=== PATIENT | male | born 1945 | race Caucasian/White ===

== ENCOUNTER → 2016-11-11 | Outpatient (CLI) | payer OTHER | END | disposition home or self-care (01) | LOC: C.LAB 14:44 | PROVIDERS: ATTEND Urology | DX: N40.1 Benign prostatic hyperplasia with lower urinary tract symptoms (principal) ==

== ENCOUNTER 2019-09-05 10:07 | Inpatient (IN) ==
[2019-09-05] MEDS ORDERED: MAGNESIUM SULFATE / D5W 1 GM/100 ML BAG IV ONE (10:33)
[2019-09-05 10:42] LABS: Basophils # (auto) 0.02 K/uL (0-0.2); Basophils % (auto) 0.4 %; Eosinophils # (auto) 0.14 K/uL (0-0.5); Eosinophils % (auto) 3.1 %; Hematocrit (blood only) 43.4 % (42-52); Hemoglobin 14.3 g/dL (14.0-18.0); Immature Granulocytes # (auto) 0.02 K/uL (0.00-0.02); Immature Granulocytes % (auto) 0.4 %; Lymphocytes # (auto) 1.18 K/uL (1.2-3.4); Mean Corpuscular Hemoglobin 31.5 pg (25-34); Mean Corpuscular Hgb Conc 32.9 g/dL (32-36); Mean Corpuscular Volume 95.6 fL (80-100); Mean Platelet Volume 10.5 fL (7.4-10.4); Monocytes # (auto) 0.44 K/uL (0.11-0.59); Monocytes % (auto) 9.7 %; Neutrophils # (auto) 2.74 K/uL (1.4-6.5); Neutrophils % (auto) 60.4 %; Platelet Count 177 K/uL (130-400); RDW Coefficient of Variation 13.4 % (11.5-14.5); RDW Standard Deviation 46.8 fL (36.4-46.3); Red Blood Count 4.54 M/uL (4.7-6.1); White Blood Count 4.54 K/uL (4.8-10.8)
--- NOTE | 2019-09-05 10:42 | Emergency Department Note ---
History of Present Illness General Chief complaint: Illness Stated complaint: TOP LIP FEELS FUNNY, SLURRED SPEECH Time Seen by Provider: 09/05/19 10:23 Source: patient and family () Mode of arrival: ambulatory Limitations: no limitations History of Present Illness Provider complaint: difficulty swallowing Onset (ago): hour(s) 3 Location: head, face and mouth Radiation: non-radiation Severity: mild Pain Consistency: + now resolved Maximum Pain Intensity: 0 Current Pain Intensity: 0 Associated symptoms: + denies other symptoms; no confusion, no chest pain, no cough, no fever/chills, no headaches, no nausea/vomiting, no shortness of breath and no weakness Treatments prior to arrival: none This is a 74-year-old male who presents the emergency department after having woke up this morning and was unable to swallow his medications. The patient felt like the right side of his mouth was numb. He reports it felt like he was injected with lidocaine. His tried to give him his morning medications and he found that he could not swallow. He also felt that he could not get the words out properly. He denies by being on any blood thinners. He reports he went to bed last evening at 11 PM and everything was normal at that point. The patient then came to the emergency department but by the time he has arrived most of everything has resolved. He reports that his mouth does still feel slightly numb however he is able to swallow at this point and is not having any difficulty with his words. He has a history of sciatica. Home Medications Home Medications Medication Instructions Recorded Confirmed Type acetaminophen 650 mg 650 mg PO Q8H PRN 05/11/18 09/05/19 History tablet,extended release alpha lipoic acid 200 mg capsule 200 mg PO QAM cap 05/11/18 09/05/19 History calcium carbonate 600 mg calcium 600 mg PO QAM tab 05/11/18 09/05/19 History (1,500 mg) tablet cholecalciferol (vitamin D3) 25 1,000 units PO QAM 05/11/18 09/05/19 History mcg (1,000 unit) capsule cranberry extract-vitamin C 250 6 cap PO QAM cap 05/11/18 09/05/19 History mg-60 mg capsule glucosamine sulfate 2KCl 1,000 mg 1,000 mg PO BID 05/11/18 09/05/19 History tablet multivitamin 1 tab PO QAM 05/11/18 09/05/19 History lactobacillus combination no.9 4 4,000 mmu cells PO QAM cap 09/15/18 09/05/19 History billion cell capsule magnesium oxide 400 mg PO QAM tab 12/06/18 09/05/19 History gabapentin 300 mg PO DAILY@1500 09/05/19 09/05/19 History gabapentin 600 mg PO BID 09/05/19 09/05/19 History meloxicam 15 mg PO QAM 09/05/19 09/05/19 History zinc 50 mg PO QAM 09/05/19 09/05/19 History Allergies Allergy/AdvReac Type Severity Reaction Status Date / Time No Known Allergies Allergy Verified 06/30/19 10:48 Past Med/Surg History Medical History Lumbar disc herniation (Chronic) Lumbar radiculopathy (Chronic) Right knee DJD (Chronic) Spinal stenosis of lumbar region with neurogenic claudication (Chronic) Surgical History History of surgical removal of meniscus of knee (Resolved) History of total left hip arthroplasty (Resolved) Family History Mother Lung cancer Father Stroke Social History Preferred Language: [place] Communication Ability: Effective Visual Impairment: Limited Hearing Ability: Normal Executive Associate Required: No Beliefs That Will Affect Care: None marital status: Current Living Situation: Spouse current occupational status: retired Other Information That Helps Us Care for You: No Feels Safe at Home: Yes Safety Concerns: Feels Safe At This Time Smoking Status: Former smoker Do You Dip or Chew Tobacco: No ; Smoking End Date: 1999 ; Second Hand Exposure: No ; Tobacco Cessation Education Requested by Patient: No Hx Alcohol Use: No Hx Substance Use: No Review of Systems A total of 10 systems reviewed and were otherwise negative Physical Exam Vital Signs Vital Signs - 24 hr 09/05/19 10:19 09/05/19 12:08 09/05/19 13:23 Temperature 36.7 C Temperature Source Oral Pulse Rate 82 Pulse Rate [Apical] 61 Respiratory Rate 16 18 Respiratory Effort / Characteristics Blood Pressure 144/107 H Blood Pressure [Left Arm] 171/86 H Blood Pressure Mean 119 Blood Pressure Mean [Left Arm] 114 Blood Pressure Position [Left Arm] Pulse Oximetry 97 96 Oxygen Delivery Method Room Air Room Air Sepsis Recent Fever Within 48 Hours No Sepsis New/Unexplained Change in Mental Status No Sepsis Action Taken by Nursing No Action Required 09/05/19 14:21 09/05/19 16:00 Temperature Temperature Source Pulse Rate Pulse Rate [Apical] 58 L 69 Respiratory Rate 16 18 Respiratory Effort / Characteristics Non-Labored Spontaneous Blood Pressure Blood Pressure [Left Arm] 159/85 H 184/86 H Blood Pressure Mean Blood Pressure Mean [Left Arm] 109 118 Blood Pressure Position [Left Arm] Lying Pulse Oximetry 96 97 Oxygen Delivery Method Room Air Room Air Sepsis Recent Fever Within 48 Hours Sepsis New/Unexplained Change in Mental Status Sepsis Action Taken by Nursing VITAL SIGNS - Vital signs and nursing notes were reviewed. GENERAL - 74-year-old male appearing stated age who is in no acute distress. Communicates well with provider and answers questions appropriately. SKIN - Without rashes. HEAD - NC/AT. EYES - PERRL with EOMI bilaterally. Sclera anicteric. Palpebral conjunctiva pink and moist with no injection noted. EARS - No deformities of external structures noted on gross examination bilaterally. No pain elicited with palpation of the tragus bilaterally. External auditory canals without discharge or otorrhea. Tympanic membranes pearly muller without retraction or bulging. No fluid or purulent material visualized behind the TM. Handle of malleus, umbo, cone of light, pars tensa/flaccid all easily visualized. NOSE - Midline and without cyanosis. No epistaxis or purulent drainage noted. Septum midline without deviation or septal hematoma noted. MOUTH/OROPHARYNX - Without perioral cyanosis. Buccal mucosa pink and moist and without leukoplakia. Tongue midline with equal elevation of palate bilaterally. No tonsillar hypertrophy, erythema, or exudates noted. dentition noted. NECK - Neck with FROM. Supple to palpation. No lymphadenopathy noted. No nuchal rigidity. LUNGS - Chest wall symmetric without accessory muscle use, intercostals retractions, or central cyanosis. Normal vesicular breath sounds CTA B/L. No wheezes, rales, or rhonchi appreciated. CARDIAC - RRR with S1/S2. No murmur, rubs, or gallops appreciated. ABDOMEN - Abdominal contour without pulsations or visible masses. BS normoactive all four quadrants. No tenderness, palpable masses, hepatosplenomegaly, or ascites noted. EXTREMITIES - No clubbing or peripheral cyanosis. No pretibial edema present. +3/5 radial, posterior tibial, and dorsalis pedis pulses palpated throughout. +5/5 strength noted in UE/LE bilaterally. NEUROLOGIC - Cranial nerves II through XII grossly intact. Sensory intact to light touch throughout. Patellar reflexes +2/4. PSYCH - A&Ox3 and cooperates fully with examiner. Pt is very pleasant and interacts well with examiner. Course Administered Medications Acetaminophen (Tylenol) 650 mg PO Q4H PRN PRN Reason: Pain or Fever Stop: 10/05/19 17:47 Last Admin: 09/06/19 07:37 Dose: 650 mg Documented by: [id number] Admin: 09/05/19 20:23 Dose: 650 mg Documented by: [id number] Aspirin (Ecotrin Ectab) 81 mg PO [facility] Stop: 10/06/19 08:59 Last Admin: 09/06/19 07:37 Dose: 81 mg Documented by: [id number] Atorvastatin Calcium (Lipitor) 40 mg PO [facility] Stop: 10/05/19 18:14 Last Admin: 09/06/19 07:38 Dose: 40 mg Documented by: [id number] Admin: 09/05/19 19:16 Dose: Not Given Documented by: [id number] Clopidogrel Bisulfate (Plavix) 75 mg PO [facility] Stop: 10/05/19 18:14 Last Admin: 09/06/19 07:37 Dose: 75 mg Documented by: [id number] Admin: 09/05/19 19:10 Dose: 75 mg Documented by: [id number] Gabapentin (Neurontin) 600 mg PO BID@0800,1999 [facility] Stop: 10/05/19 19:59 Last Admin: 09/06/19 07:37 Dose: 600 mg Documented by: [id number] Admin: 09/05/19 20:10 Dose: 600 mg Documented by: [id number] Hydralazine HCl (Hydralazine Hcl) 5 mg IV Q6H PRN PRN Reason: HTN Stop: 10/05/19 17:47 Last Admin: 09/05/19 18:29 Dose: 5 mg Documented by: [id number] Tramadol HCl (Ultram) 50 mg PO Q6H PRN PRN Reason: Pain Stop: 10/05/19 18:32 Last Admin: 09/06/19 02:40 Dose: 50 mg Documented by: [id number] Admin: 09/05/19 18:42 Dose: 50 mg Documented by: [id number] Discontinued Medications Acetaminophen (Tylenol) 1,000 mg PO NOW STA Stop: 09/05/19 11:13 Last Admin: 09/05/19 11:20 Dose: 1,000 mg Documented by: [id number] Aspirin (Aspirin) 324 mg PO NOW STA Stop: 09/05/19 12:45 Last Admin: 09/05/19 13:03 Dose: 324 mg Documented by: [id number] Hydromorphone HCl (Dilaudid) 0.5 mg IV Q15M PRN PRN Reason: Pain Stop: 09/19/19 11:11 Last Admin: 09/05/19 16:19 Dose: 0.5 mg Documented by: [id number] Admin: 09/05/19 14:22 Dose: 0.5 mg Documented by: [id number] Magnesium Sulfate/Dextrose (Magnesium Sulfate / D5w) 1 gm in 100 mls @ 100 mls/hr IV ONE ONE Stop: 09/05/19 11:32 Last Infusion: 09/05/19 12:05 Dose: 0 mls/hr Documented by: [id number] Admin: 09/05/19 10:54 Dose: 100 mls/hr Documented by: [id number] Ioversol (Optiray 320 125ml) 120 ml IV ONCE PRN PRN Reason: Interaction Checking Stop: 09/09/19 12:17 Last Admin: 09/05/19 12:18 Dose: 120 ml Documented by: [id number] Ondansetron HCl (Zofran) 4 mg IV NOW STA Stop: 09/05/19 11:13 Last Admin: 09/05/19 14:22 Dose: 4 mg Documented by: [id number] Ondansetron HCl (Zofran) Confirm Administered Dose 4 mg .ROUTE .STK-MED ONE Stop: 09/05/19 14:18 Last Admin: 09/05/19 14:22 Dose: Not Given Documented by: [id number] Medical Decision Making Differential Diagnosis Infection, dehydration, metabolic abnormality, hypo/hyperglycemia, electrolyte disturbance, anemia, hypoxia, cardiac sources, intracerebral event, toxicologic, neurologic, as well as other pathologies. Medical Records Attestation: I reviewed the patient's medical records. Home Medications Current Medication List: was personally reviewed by me Laboratory Data Attestation: I reviewed the patient's lab results. Result diagrams: 09/06/19 07:00 09/06/19 07:00 Lab Results 09/05/19 09/05/19 09/05/19 Range/Units 10:30 10:30 10:30 WBC 4.54 L (4.8-10.8) K/uL RBC 4.54 L (4.7-6.1) M/uL Hgb 14.3 (14.0-18.0) g/dL Hct 43.4 (42-52) % MCV 95.6 (80-100) fL MCH 31.5 (25-34) pg MCHC 32.9 (32-36) g/dL RDW Std Deviation 46.8 H (36.4-46.3) fL RDW Coeff of Yesi 13.4 (11.5-14.5) % Plt Count 177 (130-400) K/uL MPV 10.5 H (7.4-10.4) fL Immature Gran % (Auto) 0.4 % Neut % (Auto) 60.4 % Lymph % (Auto) 26.0 % [place] % (Auto) 9.7 % Eos % (Auto) 3.1 % Baso % (Auto) 0.4 % Immature Gran # (Auto) 0.02 (0.00-0.02) K/uL Neut # (Auto) 2.74 (1.4-6.5) K/uL Lymph # (Auto) 1.18 L (1.2-3.4) K/uL [place] # (Auto) 0.44 (0.11-0.59) K/uL Eos # (Auto) 0.14 (0-0.5) K/uL Baso # (Auto) 0.02 (0-0.2) K/uL PT 10.5 (9.0-12.0) Seconds INR 1.0 (0.9-1.1) APTT 26.5 (21.0-31.0) Seconds PTT Ratio 0.9 Sodium 143 (136-145) mmol/L Potassium 3.9 (3.5-5.1) mmol/L Chloride 108 H (98-107) mmol/L Carbon Dioxide 30 (21-32) mmol/L Anion Gap 5.0 (3-11) BUN 18 (7-18) mg/dl Creatinine 0.94 (0.6-1.4) mg/dl Est Cr Clr Drug Dosing 69.0 ml/min Est GFR ( Amer) 90.9 Est GFR (Non-Af Amer) 78.4 BUN/Creatinine Ratio 19.2 (10-20) Glucose 105 H (70-99) mg/dl Estimat Average Glucose mg/dl Hemoglobin A1c (4.5-5.6) % Calcium 9.0 (8.5-10.1) mg/dl Magnesium 2.2 (1.8-2.4) mg/dl Total Bilirubin 0.3 (0.2-1) mg/dl AST 22 (15-37) U/L ALT 26 (12-78) U/L Alkaline Phosphatase 75 (45-117) U/L Troponin I < 0.015 (0-0.045) ng/ml Total Protein 8.3 H (6.4-8.2) gm/dl Albumin 3.9 (3.4-5.0) gm/dl Globulin 4.4 H (2.5-4.0) gm/dl Albumin/Globulin Ratio 0.9 (0.9-2) 09/05/19 Range/Units 10:30 WBC (4.8-10.8) K/uL RBC (4.7-6.1) M/uL Hgb (14.0-18.0) g/dL Hct (42-52) % MCV (80-100) fL MCH (25-34) pg MCHC (32-36) g/dL RDW Std Deviation (36.4-46.3) fL RDW Coeff of Yesi (11.5-14.5) % Plt Count (130-400) K/uL MPV (7.4-10.4) fL Immature Gran % (Auto) % Neut % (Auto) % Lymph % (Auto) % [place] % (Auto) % Eos % (Auto) % Baso % (Auto) % Immature Gran # (Auto) (0.00-0.02) K/uL Neut # (Auto) (1.4-6.5) K/uL Lymph # (Auto) (1.2-3.4) K/uL [place] # (Auto) (0.11-0.59) K/uL Eos # (Auto) (0-0.5) K/uL Baso # (Auto) (0-0.2) K/uL PT (9.0-12.0) Seconds INR (0.9-1.1) APTT (21.0-31.0) Seconds PTT Ratio Sodium (136-145) mmol/L Potassium (3.5-5.1) mmol/L Chloride (98-107) mmol/L Carbon Dioxide (21-32) mmol/L Anion Gap (3-11) BUN (7-18) mg/dl Creatinine (0.6-1.4) mg/dl Est Cr Clr Drug Dosing ml/min Est GFR ( Amer) Est GFR (Non-Af Amer) BUN/Creatinine Ratio (10-20) Glucose (70-99) mg/dl Estimat Average Glucose 123 mg/dl Hemoglobin A1c 5.9 H (4.5-5.6) % Calcium (8.5-10.1) mg/dl Magnesium (1.8-2.4) mg/dl Total Bilirubin (0.2-1) mg/dl AST (15-37) U/L ALT (12-78) U/L Alkaline Phosphatase (45-117) U/L Troponin I (0-0.045) ng/ml Total Protein (6.4-8.2) gm/dl Albumin (3.4-5.0) gm/dl Globulin (2.5-4.0) gm/dl Albumin/Globulin Ratio (0.9-2) Imaging Data Radiologist's Impression: [facility] [place], [place] [phone] CT Scan Report Patient: HAILEE AGUIRRE Admit Date: 09/05/19 MR#: [id number] Address1: [address] [facility] Acct ID:[id number] Address2: Date: 1945 [facility] Zip: [place] [address] Age: 74 Location: ED Sex: M Room/Bed: Att Phy: Diagnosis: TOP LIP FEELS FUNNY, SLURRED SPEECH Giana Phy: Oneil Mahoney PA-C Service Date: 09/05/19 Fam Phy: Interpreting Phy: Jerson Pineda Admit Phy: Ordering Phy: Tayo Flanagan MD cc: ~ CT head/brain wo con CLINICAL HISTORY: 74 years-old Male with Stroke evaluation . Acute strokelike symptoms TECHNIQUE: Multiple axial CT images of the head were obtained without contrast. A dose lowering technique was utilized adhering to the principles of ALARA. COMPARISON: CTA head and neck of same day. FINDINGS: No acute intracranial hemorrhage, midline shift, intracranial mass, hydrocephalus, territorial ischemia or abnormal extra-axial collection. Mild age-related involutional changes. Patchy white matter hypodensities suggest probable chronic microvascular ischemic disease. Subcentimeter hypodense focus within the region of the left anterior commissure on image 14 series 2 is suggestive of a prominent perivascular space. The calvarium is intact. The paranasal sinuses, mastoid air cells, and middle ear cavities are clear. IMPRESSION: No acute intracranial abnormality. ACT 112: Negative or not required by law. The above report was generated using voice recognition software. It may contain grammatical, syntax or spelling errors. Electronically signed by: Raghu Pineda M.D. 09/05/2019 12:24 PM Dictated: 09/05/19 1220 Transcribed: 09/05/19 1220 [place], [place] [phone] CT Scan Report Patient: HAILEE AGUIRRE Admit Date: 09/05/19 MR#: [id number] Address1: [address] [place] [address] Acct ID:[id number] Address2: Date: 1945 [facility] Zip: [place] [address] Age: 74 Location: ED Sex: M Room/Bed: Att Phy: Diagnosis: TOP LIP FEELS FUNNY, SLURRED SPEECH Giana Phy: Oneil Mahoney PA-C Service Date: 09/05/19 [facility] Phy: Interpreting Phy: Srikanth Sheikh MD Admit Phy: Ordering Phy: Tayo Flanagan MD cc: ~ CT angio head w con CLINICAL HISTORY: 74 years-old Male presenting with Stroke evaluation . TECHNIQUE: Multidetector CT angiography of the head was performed after the administration of intravenous contrast. 3-D volumetric and/or maximum intensity projection (MIP) images were subsequently reconstructed for review. IV contrast: 120 mL of Optiray 320. One or more dose lowering techniques were used consistent with the principles of ALARA (as low as reasonably achievable), including automatic exposure control, mA or kV adjustment to individual patient size, and/or use of iterative reconstruction. COMPARISON: None. CT DOSE (mGy.cm): The estimated cumulative dose is 1245.97 mGy.cm. FINDINGS: Decorative Cutting Machine Tender topogram: Unremarkable. Anterior circulation: Intracranial portions of the internal carotid arteries patent to the level of the termini. Anterior cerebral arteries patent. Middle cerebral arteries patent. Anterior communicating artery patent. Posterior circulation: Codominant vertebral arteries. Intradural portions of the vertebral arteries patent. Posterior inferior cerebellar arteries patent. Basilar artery patent. Anterior inferior cerebellar arteries poorly visualized. Superior cerebellar arteries patent. Posterior cerebral arteries patent. Posterior communicating arteries patent hypoplastic or aplastic. Dural venous sinuses: Patent. Other: Allowing for the phase of contrast, brain parenchyma within normal limits. Calvarium intact. IMPRESSION: 1. No evidence of aneurysm, focal vessel occlusion, or significant stenosis of the intracranial arteries. ACT 112: Negative or not required by law. Electronically signed by: Srikanth Sheikh M.D. 09/05/2019 12:27 PM Dictated: 09/05/19 1223 Transcribed: 09/05/19 1223 [place], [place] [phone] Magnetic Resonance Report Patient: HAILEE AGUIRRE Admit Date: 09/05/19 MR#: [id number] Address1: [address] [place] [address] Acct ID:[id number] Address2: Date: 1945 [facility] Zip: [place] [address] Age: 74 Location: ED Sex: M Room/Bed: Att Phy: Diagnosis: TOP LIP FEELS FUNNY, SLURRED SPEECH Giana Phy: Oneil Mahoney PA-C Service Date: 09/05/19 Fam Phy: Interpreting Phy: Juan Carlos Barnard MD Admit Phy: Ordering Phy: Tayo Flanagan MD cc: ~ MRI OF THE BRAIN WITHOUT IV CONTRAST CLINICAL HISTORY: Right-sided facial droop. Inability to swallow. COMPARISON STUDY: CT of the brain dated 09/05/2019. TECHNIQUE: MRI of the brain was performed utilizing various T1 and T2-weighted sequences in the axial, sagittal, and coronal planes. IV contrast was not administered for this examination. FINDINGS: Brain parenchyma: There are 2 subcentimeter foci of restricted diffusion identified in the posterior right frontal lobe and the right parietal lobe. This is consistent with acute to subacute ischemia. No additional foci of restricted diffusion are identified. There is age-related involutional change noting moderate subcortical and periventricular microangiopathic disease. There is no hemorrhage or mass effect. Muller-white matter differentiation is preserved. No extra-axial fluid collection is seen. The cerebellar tonsils are normal in con figuration. Ventricles, sulci, and cisterns: Prominent secondary to involutional change. Pituitary and sella: Partially empty sella is incidentally noted. Intracranial vasculature: Normal flow voids are maintained at the skull base. Orbits: The bony orbits are grossly intact. Orbital contents are normal in appearance. Sinuses and mastoids: There is a left mastoid effusion. The right mastoid air cells are clear. There is mild mucosal thickening in the right frontal sinus. The remaining paranasal sinuses are clear. Calvarium: Unremarkable. Cervical cord: Partially visualized cervical spinal cord is normal in morphology and signal intensity. IMPRESSION: 1. There are 2 subcentimeter foci of restricted diffusion identified in the right hemisphere as above. These are consistent with acute to subacute infarcts. 2. No additional foci of acute ischemia are identified. 3. There is no hemorrhage or mass effect. ACT 112: Negative or not required by law. Electronically signed by: Juan Carlos Barnard M.D. 09/05/2019 3:18 PM Dictated: 09/05/19 1513 Transcribed: 09/05/19 1513 ECG Data Attestation: I personally reviewed and interpreted this ECG as follows: Indication: + altered mental status Rate (beats per minute): 74 Rhythm: + normal sinus ECG Intervals/blocks: + Normal QT-c (424) ECG [place]: + Normal ECG ST segments: no ST depression and no ST elevation Comparison ECG Date: from (09/05/2019) Change: no significant change Blood Pressure Blood Pressure Findings: Elevated blood pressure Blood Pressure Disposition: elevated BP felt to be situational MDM Narrative Patient was seen and evaluated as above in room B5. Review was performed of nursing notes and vital signs. I did review pertinent previous visits and patient history. After obtaining a thorough history and physical examination the above work up was performed. This is a 74-year-old male who presents emergency department with right-sided facial numbness the symptoms have resolved by the time the patient arrived to the emergency department. Therefore using shared medical decision making the patient was sent for CTA of the head and neck. This is concerning for an embolus in the right carotid. Patient was then sent for an MRI of the brain which confirmed 2 strokes. I did discuss this case with the hospitalist service who did agree to admit the patient. I did consider TPA for this patient however his symptoms had resolved by the time he reached the emergency department therefore he is not a candidate. He was given magnesium as well as aspirin while in the emergency department. Patient also has sciatic pain so he was given Dilaudid for this. An order was placed for continuous cardiac monitoring. The monitor shows a rate of 82 with Normal Sinus rhythm. The patient was evaluated during the global COVID-19 pandemic, and that diagnosis was suspected/considered upon their initial presentation. Their evaluation, treatment and testing was consistent with current guidelines for patients who present with complaints or symptoms that may be related to COVID- 19. Impression & Plan Facial numbness, Stroke Discharge Plan Visit Data *Final* Discharge Date/Time: 09/05/19 17:13 Chief Complaint: Illness Stated Complaint: TOP LIP FEELS FUNNY, SLURRED SPEECH ED Provider: Tayo Flanagan Discharge Problem: Facial numbness, Stroke Patient Disposition: Admitted As Inpatient Discharge Instructions Interventions: ED Discharge Assessment Last Done: 09/05/19 17:13
[2019-09-05 10:57] LABS: Partial Thromboplastin Ratio 0.9; Partial Thromboplastin Time 26.5 Seconds (21.0-31.0); Prothrombin Time 10.5 Seconds (9.0-12.0)
[2019-09-05 10:59] LABS: Alanine Aminotransferase 26 U/L (12-78); Albumin Level 3.9 gm/dl (3.4-5.0); Aspartate Aminotransferase 22 U/L (15-37); BUN Creatinine Ratio 19.2 (10-20); Blood Urea Nitrogen 18 mg/dl (7-18); Carbon Dioxide 30 mmol/L (21-32); Chloride 108 mmol/L (98-107); Est GFR (African American) 90.9; Est GFR (Non-African American) 78.4; Glucose 105 mg/dl (70-99); Magnesium 2.2 mg/dl (1.8-2.4); Potassium 3.9 mmol/L (3.5-5.1); Sodium 143 mmol/L (136-145)
[2019-09-05 11:04] LABS: Albumin Globulin Ratio 0.9 (0.9-2); Alkaline Phosphatase 75 U/L (45-117); Bilirubin,Total 0.3 mg/dl (0.2-1); Globulin 4.4 gm/dl (2.5-4.0); Total Protein 8.3 gm/dl (6.4-8.2); Troponin I < 0.015 ng/ml (0-0.045)
[2019-09-05] MEDS ORDERED: ACETAMINOPHEN 500 MG TAB PO STA (11:12)
[2019-09-05] MEDS ORDERED: OPTIRAY 320 125ml IV PRN (12:18)
--- NOTE | 2019-09-05 12:25 | CT Scan Report ---
CT head/brain wo con CLINICAL HISTORY: 74 years-old Male with Stroke evaluation . Acute strokelike symptoms TECHNIQUE: Multiple axial CT images of the head were obtained without contrast. A dose lowering tech nique was utilized adhering to the principles of ALARA. COMPARISON: CTA head and neck of same day. FINDINGS: No acute intracranial hemorrhage, midline shift, intracranial mass, hydrocephalus, territorial ischem ia or abnormal extra-axial collection. Mild age-related involutional changes. Patchy white matter hyp odensities suggest probable chronic microvascular ischemic disease. Subcentimeter hypodense focus wit hin the region of the left anterior commissure on image 14 series 2 is suggestive of a prominent sadiq vascular space. The calvarium is intact. The paranasal sinuses, mastoid air cells, and middle ear cavities are clear . IMPRESSION: No acute intracranial abnormality. ACT 112: Negative or not required by law. The above report was generated using voice recognition software. It may contain grammatical, syntax o r spelling errors. Electronically signed by: Raghu Pineda M.D. 09/05/2019 12:24 PM
--- NOTE | 2019-09-05 12:28 | CT Scan Report ---
CT angio head w con CLINICAL HISTORY: 74 years-old Male presenting with Stroke evaluation . TECHNIQUE: Multidetector CT angiography of the head was performed after the administration of intrave nous contrast. 3-D volumetric and/or maximum intensity projection (MIP) images were subsequently mckenzie nstructed for review. IV contrast: 120 mL of Optiray 320. One or more dose lowering techniques were u sed consistent with the principles of ALARA (as low as reasonably achievable), including automatic ex posure control, mA or kV adjustment to individual patient size, and/or use of iterative reconstructio n. COMPARISON: None. CT DOSE (mGy.cm): The estimated cumulative dose is 1245.97 mGy.cm. 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 Anterior circulation: Intracranial portions of the internal carotid arteries patent to the level of t he termini. Anterior cerebral arteries patent. Middle cerebral arteries patent. Anterior communicatin g artery patent. Posterior circulation: Codominant vertebral arteries. Intradural portions of the vertebral arteries p atent. Posterior inferior cerebellar arteries patent. Basilar artery patent. Anterior inferior cerebe llar arteries poorly visualized. Superior cerebellar arteries patent. Posterior cerebral arteries pat ent. Posterior communicating arteries patent hypoplastic or aplastic. Dural venous sinuses: Patent. Other: Allowing for the phase of contrast, brain parenchyma within normal limits. Calvarium intact. IMPRESSION: 1. No evidence of aneurysm, focal vessel occlusion, or significant stenosis of the intracranial jose martin geovany. ACT 112: Negative or not required by law. Electronically signed by: Srikanth Sheikh M.D. 09/05/2019 12:27 PM
--- NOTE | 2019-09-05 12:39 | CT Scan Report ---
CT angio neck with con CLINICAL HISTORY: 74 years-old Male presenting with Stroke evaluation. TECHNIQUE: Multidetector CT angiography of the neck was performed after the administration of intrave nous contrast. 3-D volumetric and/or maximum intensity projection (MIP) images were subsequently mckenzie nstructed for review. IV contrast: 120 mL of Optiray 320. One or more dose lowering techniques were u sed consistent with the principles of ALARA (as low as reasonably achievable), including automatic ex posure control, mA or kV adjustment to individual patient size, and/or use of iterative reconstructio n. Stenosis measurements were based on NASCET-like criteria (distal lumen diameter as the denominator for stenosis measurement). COMPARISON: None. CT DOSE (mGy.cm): The estimated cumulative dose is 1245.97. 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 Aortic arch: Normal three-vessel aortic arch with patent origins of the branch vessels. Innominate artery: Patent. Right subclavian artery: Patent. Right common carotid artery: Patent. Right internal and external carotid arteries: Predominantly noncalcified atherosclerotic plaque at th e carotid bifurcation extending into the proximal right internal carotid artery. There is focal intra luminal thrombus in the proximal portion. This results in up to 50% stenosis of the lumen of the prox imal ICA. Mid to distal portions widely patent. External carotid artery patent. Left common carotid artery: Patent. Left internal and external carotid arteries: Calcified and noncalcified atherosclerotic plaque at the carotid bifurcation. Up to 50% stenosis of the origin and proximal course of the internal carotid ar matheus. The mid to distal course is widely patent. External carotid artery patent. Left subclavian artery: Mild noncalcified atherosclerotic plaque without significant stenosis. Vertebral arteries: Codominant vertebral arteries. Origins and courses of the bilateral vertebral art eries patent. Other: Limited intracranial evaluation within normal limits. Soft tissues of the neck normal allowing for the phase of contrast. Degenerative changes of the cervical spine. Severe centrilobular emphysem a. IMPRESSION: 1. Thrombus/ulcerated noncalcified atherosclerotic plaque along the origin and proximal course of th e right ICA, resulting in up to 50% stenosis. The appearance raises concern for an etiology for possi ble distal emboli. The appearance is not characteristic for dissection, although acute vessel injury is difficult to exclude if there is a history of trauma. 2. Up to 50% stenosis of the proximal left ICA. 3. No focal vessel occlusion. 4. Severe emphysema ACT 112: Negative or not required by law. Electronically signed by: Srikanth Sheikh M.D. 09/05/2019 12:38 PM
[2019-09-05] MEDS ORDERED: ASPIRIN CHEW 324 MG PO STA (12:44)
[2019-09-05] MEDS: ONDANSETRON INJ 2 MG/ML 2 ML VIAL IV STA ×2 (13:00→14:22)
--- NOTE | 2019-09-05 13:42 | XRay Report ---
XR orbits for MRI HISTORY: 74 years-old Male Screening for foreign body for MRI screening study for MRI. COMPARISON: Head CT of same day TECHNIQUE: 3 views of the orbits FINDINGS: No opaque foreign body of the orbits. No acute facial bone fracture or dislocation. IMPRESSION: No opaque foreign body. ACT 112: Negative or not required by law. The above report was generated using voice recognition software. It may contain grammatical, syntax o r spelling errors. Electronically signed by: Raghu Pineda M.D. 09/05/2019 1:41 PM
[2019-09-05] MEDS ORDERED: ONDANSETRON INJ 2 MG/ML 2 ML VIAL ONE (14:17)
[2019-09-05] MEDS: HYDROmorphone INJ 0.5 MG/0.5 ML SYR IV PRN ×2 (14:22→16:19)
--- NOTE | 2019-09-05 15:20 | Magnetic Resonance Report ---
MRI OF THE BRAIN WITHOUT IV CONTRAST CLINICAL HISTORY: Right-sided facial droop. Inability to swallow. COMPARISON STUDY: CT of the brain dated 09/05/2019. TECHNIQUE: MRI of the brain was performed utilizing various T1 and T2-weighted sequences in the axial , sagittal, and coronal planes. IV contrast was not administered for this examination. FINDINGS: Brain parenchyma: There are 2 subcentimeter foci of restricted diffusion identified in the posterior right frontal lobe and the right parietal lobe. This is consistent with acute to subacute ischemia. N o additional foci of restricted diffusion are identified. There is age-related involutional change no ting moderate subcortical and periventricular microangiopathic disease. There is no hemorrhage or mas s effect. Muller-white matter differentiation is preserved. No extra-axial fluid collection is seen. Th e cerebellar tonsils are normal in configuration. Ventricles, sulci, and cisterns: Prominent secondary to involutional change. Pituitary and sella: Partially empty sella is incidentally noted. Intracranial vasculature: Normal flow voids are maintained at the skull base. Orbits: The bony orbits are grossly intact. Orbital contents are normal in appearance. Sinuses and mastoids: There is a left mastoid effusion. The right mastoid air cells are clear. There is mild mucosal thickening in the right frontal sinus. The remaining paranasal sinuses are clear. Calvarium: Unremarkable. Cervical cord: Partially visualized cervical spinal cord is normal in morphology and signal intensity . IMPRESSION: 1. There are 2 subcentimeter foci of restricted diffusion identified in the right hemisphere as above . These are consistent with acute to subacute infarcts. 2. No additional foci of acute ischemia are identified. 3. There is no hemorrhage or mass effect. ACT 112: Negative or not required by law. Electronically signed by: Juan Carlos Barnard M.D. 09/05/2019 3:18 PM
[2019-09-05] MEDS ORDERED: HydrALAZINE HCL 20 MG/ML VIAL IV PRN (17:48)
[2019-09-05] MEDS ORDERED: PHARMACIST DISCHARGE MED REC CONSULT PRN (17:48)
[2019-09-05] MEDS: TRAMADOL HCL 50 MG TABLET PO PRN (18:42)
--- NOTE | 2019-09-05 18:56 | History & Physical Report ---
Date of Service September 05, 2019 Assessment & Plan (1) Acute CVA (cerebrovascular accident): -admit to tele -patient presenting from home with reports of upper lip numbness and speech difficulty -in the ED, brain MRI shows acute/subacute posterior right frontal lobe and the right parietal lobe infarcts. Neck CTA shows thrombus/ulcerated noncalcified atherosclerotic plaque along the origin and proximal course of the right ICA, resulting in up to 50% stenosis. The appearance raises concern for an etiology for possible distal emboli. Up to 50% stenosis of the proximal left ICA. -s/p full dose ASA in the ED, continue with ASA 8u1mg daily and add Plavix and statin -neuro and vascular consults - ED has notified both. NPO after midnight for possible vascular intervention tomorrow. -permissive HTN -neuro checks -echo -lipid panel and hgb a1c with AM labs -PT/OT, speech consults (2) Chronic back pain: -continue home dose of gabapentin -PRN Tramadol (3) DVT prophylaxis: -SCDs Admission and Anticipated Discharge Date Admission Date: September 05, 2019 History of Present Illness Chief Complaint: Lip Numbness, Speech Difficulty Primary Care Provider: Oneil Mahoney PA-C 74 year old male who presents to the ED with reports of upper lip numbness and speech difficulty. Patient reports that when he woke up this morning his upper lip felt like he had had Novocaine. Then when he took a drink of water with his morning pills, the water spilled out of his mouth. His noted his speech was thick and somewhat slurred. Patient notes that over the past one week he had noted his typing skills worsened and some other fine motor movements. Patient denies any associated unilateral numbness, tingling, or weakness. No headache or blurred vision. Denies lightheadedness, dizziness, diaphoresis, and syncopal events. No chest pain or shortness of breath. Denies abdominal pain, nausea, vomiting, and diarrhea. No other recent illnesses, fevers, or chills. Denies urinary symptoms. In the ED, brain MRI shows two small acute-subacute in the posterior right frontal lobe and the right parietal lobe. CTA neck shows Thrombus/ulcerated noncalcified atherosclerotic plaque along the origin and proximal course of the right ICA, resulting in up to 50% stenosis. Labs are unremarkable. BP somewhat hypertensive but vitals otherwise stable. Patient was given Tylenol, full dose ASA, IV dilaudid, IV Mg+, and IV zofran. Allergies Allergy/AdvReac Type Severity Reaction Status Date / Time No Known Allergies Allergy Verified 06/30/19 10:48 Home Medications Home Medications Medication Instructions Recorded Confirmed Type acetaminophen 650 mg 650 mg PO Q8H PRN 05/11/18 09/05/19 History tablet,extended release alpha lipoic acid 200 mg capsule 200 mg PO QAM cap 05/11/18 09/05/19 History calcium carbonate 600 mg calcium 600 mg PO QAM tab 05/11/18 09/05/19 History (1,500 mg) tablet cholecalciferol (vitamin D3) 25 1,000 units PO QAM 05/11/18 09/05/19 History mcg (1,000 unit) capsule cranberry extract-vitamin C 250 6 cap PO QAM cap 05/11/18 09/05/19 History mg-60 mg capsule glucosamine sulfate 2KCl 1,000 mg 1,000 mg PO BID 05/11/18 09/05/19 History tablet multivitamin 1 tab PO QAM 05/11/18 09/05/19 History lactobacillus combination no.9 4 4,000 mmu cells PO QAM cap 09/15/18 09/05/19 History billion cell capsule magnesium oxide 400 mg PO QAM tab 12/06/18 09/05/19 History gabapentin 300 mg PO DAILY@1500 09/05/19 09/05/19 History gabapentin 600 mg PO BID 09/05/19 09/05/19 History meloxicam 15 mg PO QAM 09/05/19 09/05/19 History zinc 50 mg PO QAM 09/05/19 09/05/19 History Past Med/Surg History Medical History (Updated 09/06/19 @ 10:18 by Re Plunkett PA-C) Carotid stenosis, bilateral Lumbar disc herniation (Chronic) Lumbar radiculopathy (Chronic) Right knee DJD (Chronic) Spinal stenosis of lumbar region with neurogenic claudication (Chronic) Surgical History History of surgical removal of meniscus of knee (Resolved) History of total left hip arthroplasty (Resolved) Family History Mother Lung cancer Father Stroke Social History Preferred Language: [place] Communication Ability: Effective Visual Impairment: Limited Hearing Ability: Normal Paleologist Required: No Beliefs That Will Affect Care: None marital status: Current Living Situation: Spouse current occupational status: retired Other Information That Helps Us Care for You: No Feels Safe at Home: Yes Safety Concerns: Feels Safe At This Time Smoking Status: Former smoker Do You Dip or Chew Tobacco: No ; Smoking End Date: 1999 ; Second Hand Exposure: No ; Tobacco Cessation Education Requested by Patient: No Hx Alcohol Use: No Hx Substance Use: No Review of Systems Review of Systems: ROS per HPI, all other systems reviewed and negative Physical Exam Constitutional: WD/WN, vitals as above Eyes: PERRL, conjunctivae normal, anicteric sclerae ENMT: external ear and nose normal, oropharynx normal Respiratory: normal respiratory effort, lungs clear to auscultation Cardiovascular: Rate/Rhythm: regular rate and regular rhythm Vessels: normal peripheral pulses Extremities: no edema Gastrointestinal (Abdomen): normal bowel sounds, soft, nontender, no hepatosplenomegaly Musculoskeletal: no cyanosis or clubbing, extremities motor strength 5/5 Skin: no rashes, warm and dry Neurologic: Speech / Cognition: + abnormal speech (thick speech, mild slurring) Cranial Nerves: PERRL, normal accommodation, EOM intact bilaterally and tongue midline; + abnormal facial strength (mild left facial droop noted) Coordination: normal [id number] test and normal [id number] test Psychiatric: A+Ox3, euthymic affect Results & Data Results & Data ([facility]) Vital Signs (Past 12 Hours) Vital Signs Temp Pulse Pulse Resp BP BP Pulse Ox 09/05/19 18:43 36.7 C 84 22 148/81 H 94 09/05/19 17:51 36.5 C 66 16 193/86 H 96 09/05/19 17:48 36.5 C 63 97 H 18 193/86 H 97 09/05/19 16:00 69 18 184/86 H 97 09/05/19 14:21 58 L 16 159/85 H 96 09/05/19 13:23 171/86 H 09/05/19 12:08 61 18 96 09/05/19 10:19 36.7 C 82 16 144/107 H 97 Pulse Ox 09/05/19 18:43 09/05/19 17:51 09/05/19 17:48 97 09/05/19 16:00 09/05/19 14:21 09/05/19 13:23 09/05/19 12:08 09/05/19 10:19 Laboratory Results Short CBC 09/05/19 Range/Units 10:30 WBC 4.54 L (4.8-10.8) K/uL Hgb 14.3 (14.0-18.0) g/dL Hct 43.4 (42-52) % Plt Count 177 (130-400) K/uL BMP 09/05/19 10:30 Sodium 143 Potassium 3.9 Chloride 108 H Carbon Dioxide 30 BUN 18 Creatinine 0.94 Glucose 105 H Calcium 9.0 Cardiac Enzymes 09/05/19 Range/Units 10:30 Troponin I < 0.015 (0-0.045) ng/ml Liver Function 09/05/19 Range/Units 10:30 Total Bilirubin 0.3 (0.2-1) mg/dl AST 22 (15-37) U/L ALT 26 (12-78) U/L Alkaline Phosphatase 75 (45-117) U/L Albumin 3.9 (3.4-5.0) gm/dl Diagnostic Findings HEAD CT IMPRESSION: No acute intracranial abnormality. HEAD CTA IMPRESSION: 1. No evidence of aneurysm, focal vessel occlusion, or significant stenosis of the intracranial arteries. NECK CTA IMPRESSION: 1. Thrombus/ulcerated noncalcified atherosclerotic plaque along the origin and proximal course of the right ICA, resulting in up to 50% stenosis. The appearance raises concern for an etiology for possible distal emboli. The appearance is not characteristic for dissection, although acute vessel injury is difficult to exclude if there is a history of trauma. 2. Up to 50% stenosis of the proximal left ICA. 3. No focal vessel occlusion. 4. Severe emphysema BRAIN MRI IMPRESSION: 1. There are 2 subcentimeter foci of restricted diffusion identified in the right hemisphere as above. These are consistent with acute to subacute infarcts. 2. No additional foci of acute ischemia are identified. 3. There is no hemorrhage or mass effect. Code Status & VTE Plan Code Status Patient is a full code as per my discussion with him. VTE Prophylaxis Plan VTE Prophylaxis will be ordered: Yes
[2019-09-05] MEDS: ATORVASTATIN 40 MG TAB PO SCH ×2 (19:09→19:16)
[2019-09-05] MEDS: CLOPIDOGREL BISULFATE 75 MG TAB PO SCH (19:10)
--- NOTE | 2019-09-05 19:15 | Communication Note ---
Date of Service: September 05, 2019 Attending Addendum: care coordinated with RASHEEDA Ramos please refer to her notes for full details, I agree with her notes patient seen and examined, records reviewed by myself as well on exam, patient seen resting in bed, sitting up states numbness on his cheek and mouth is resolving no problems with swallowing no other symptoms VS noted and reviewed oriented x 3, not in distress, speaks in sentences with no effort nor accessory muscle use normal rate, regular rhythm, no murmurs clear breath sounds bilaterally non distended, soft, nontender no bipedal edema, erythema, warmth (+) mild left facial droop- mild, no other gross focal deficits WBC 4.5 Hg 14.3 Crea 0.94 Brain MRI:1. There are 2 subcentimeter foci of restricted diffusion identified in the right hemisphere as above. These are consistent with acute to subacute infarcts. 2. No additional foci of acute ischemia are identified. 3. There is no hemorrhage or mass effect. CT neck: 1. Thrombus/ulcerated noncalcified atherosclerotic plaque along the origin and proximal course of the right ICA, resulting in up to 50% stenosis. The appearance raises concern for an etiology for possible distal emboli. The appearance is not characteristic for dissection, although acute vessel injury is difficult to exclude if there is a history of trauma. 2. Up to 50% stenosis of the proximal left ICA. 3. No focal vessel occlusion. 4. Severe emphysema ASSESSMENT AND PLAN ACUTE CVA stroke protocol echo ASA and Plavix Lipitor BILATERAL CAROTID ARTERY STENOSIS Vascular Surgery consult HTN PRN hdyralazine for systolic bp > 170 other diagnoses and plan of care as per RASHEEDA Ramos's notes Del Polanco MD
[2019-09-05] MEDS: GABAPENTIN 300 MG CAP PO SCH (20:10)
[2019-09-05] MEDS: ACETAMINOPHEN 325 MG TAB PO PRN (20:23)
--- NOTE | 2019-09-05 23:46 | Electrocardiogram Report ---
Test Reason : Blood Pressure : / mmHG Vent. Rate : 074 BPM Atrial Rate : 074 BPM P-R Int : 164 ms QRS Dur : 086 ms QT Int : 382 ms P-R-T Axes : 045 021 042 degrees QTc Int : 424 ms Normal sinus rhythm Normal ECG No previous ECGs available Confirmed by Al Garcia ([id number]) on 09/05/2019 11:45:36 PM Referred By: REFERRED SELF Confirmed By:Al Garcia
[2019-09-06] MEDS: TRAMADOL HCL 50 MG TABLET PO PRN ×2 (02:40→09:41)
[2019-09-06 06:25] LABS: Estimated Average Glucose 123 mg/dl; Hemoglobin A1C 5.9 % (4.5-5.6)
[2019-09-06 07:14] LABS: Basophils # (auto) 0.02 K/uL (0-0.2); Basophils % (auto) 0.4 %; Eosinophils % (auto) 3.7 %; Hematocrit (blood only) 41.1 % (42-52); Hemoglobin 13.3 g/dL (14.0-18.0); Immature Granulocytes # (auto) 0.01 K/uL (0.00-0.02); Immature Granulocytes % (auto) 0.2 %; Lymphocytes # (auto) 1.71 K/uL (1.2-3.4); Lymphocytes % (auto) 31.3 %; Mean Corpuscular Hemoglobin 31.1 pg (25-34); Mean Corpuscular Hgb Conc 32.4 g/dL (32-36); Mean Platelet Volume 10.5 fL (7.4-10.4); Monocytes # (auto) 0.51 K/uL (0.11-0.59); Monocytes % (auto) 9.3 %; Neutrophils # (auto) 3.01 K/uL (1.4-6.5); Neutrophils % (auto) 55.1 %; Platelet Count 173 K/uL (130-400); RDW Coefficient of Variation 13.7 % (11.5-14.5); RDW Standard Deviation 47.5 fL (36.4-46.3); Red Blood Count 4.28 M/uL (4.7-6.1); White Blood Count 5.46 K/uL (4.8-10.8)
[2019-09-06] MEDS: ACETAMINOPHEN 325 MG TAB PO PRN (07:37)
[2019-09-06] MEDS: CLOPIDOGREL BISULFATE 75 MG TAB PO SCH (07:37)
[2019-09-06] MEDS: GABAPENTIN 300 MG CAP PO SCH (07:37)
[2019-09-06] MEDS: ATORVASTATIN 40 MG TAB PO SCH (07:38)
[2019-09-06 07:51] LABS: BUN Creatinine Ratio 21.1 (10-20); Calcium 8.9 mg/dl (8.5-10.1); Creatinine Clr Calc Pharmacy 71.3 ml/min; Est GFR (African American) 94.5; Est GFR (Non-African American) 81.6
[2019-09-06] MEDS ORDERED: ASPIRIN 81 MG ECTAB PO SCH (09:00)
--- NOTE | 2019-09-06 10:20 | Consultation ---
Date of Consultation September 06, 2019 Assessment & Plan (1) Carotid stenosis, bilateral: Pt admitted with acute R CVA and found to have approx 50% stenosis of BL carotid arteries. Pt also seen by Dr Jordan and images reviewed. No indications for CEA at this time. Continue ASA/plavix. Will see in office in 1 yr with carotid US for surveillance. Please call if needed. Patient was seen, examined, and chart reviewed. Agree with exam and treatment plan of the Vascular PA. Present on Admission?: Yes History of Present Illness Reason for Consultation: R ICA stenosis, CVA Attending Physician: Del Polanco MD History of Present Illness 74 yo m with hx of sciatica, neuropathy, spinal stenosis, osteoarthritis, admitted with acute R CVA and seen in consultation today for R ICA stenosis noted on CTA. Pt states he was in normal state of health until waking yesterday, he felt his lips were numb "like novocaine." Water fell out of his mouth when he was trying to take his medications. Has been feeling like both hands/fingers are more numb at fingertips than usual, especially when typing. 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 His lip sx are improved, but not completely gone. Admits chronic low back pain and LLE pain from scitica. Denies SCALES, fever, chills, recent illness, chest pain, palpitations, abd pain, N/V, rest pain, other complaints. Allergies Allergy/AdvReac Type Severity Reaction Status Date / Time No Known Allergies Allergy Verified 06/30/19 10:48 Home Medications Home Medications Medication Instructions Recorded Confirmed Type acetaminophen 650 mg 650 mg PO Q8H PRN 05/11/18 09/05/19 History tablet,extended release alpha lipoic acid 200 mg capsule 200 mg PO QAM cap 05/11/18 09/05/19 History calcium carbonate 600 mg calcium 600 mg PO QAM tab 05/11/18 09/05/19 History (1,500 mg) tablet cholecalciferol (vitamin D3) 25 1,000 units PO QAM 05/11/18 09/05/19 History mcg (1,000 unit) capsule cranberry extract-vitamin C 250 6 cap PO QAM cap 05/11/18 09/05/19 History mg-60 mg capsule glucosamine sulfate 2KCl 1,000 mg 1,000 mg PO BID 05/11/18 09/05/19 History tablet multivitamin 1 tab PO QAM 05/11/18 09/05/19 History lactobacillus combination no.9 4 4,000 mmu cells PO QAM cap 09/15/18 09/05/19 History billion cell capsule magnesium oxide 400 mg PO QAM tab 12/06/18 09/05/19 History gabapentin 300 mg PO DAILY@1500 09/05/19 09/05/19 History gabapentin 600 mg PO BID 09/05/19 09/05/19 History zinc 50 mg PO QAM 09/05/19 09/05/19 History aspirin 81 mg PO QAM #21 tab 09/06/19 Rx atorvastatin [Lipitor] 80 mg PO DAILY #30 tab 09/06/19 Rx clopidogrel 75 mg PO QAM #30 tab 09/06/19 Rx tramadol 50 mg PO Q6H PRN #20 tab 09/06/19 Rx Patient History Medical History (Updated 09/06/19 @ 17:20 by Del Polanco MD) Carotid stenosis, bilateral Lumbar disc herniation (Chronic) Lumbar radiculopathy (Chronic) Right knee DJD (Chronic) Spinal stenosis of lumbar region with neurogenic claudication (Chronic) Surgical History History of surgical removal of meniscus of knee (Resolved) History of total left hip arthroplasty (Resolved) Family History Mother Lung cancer Father Stroke Social History Preferred Language: [place]er Communication Ability: Effective Visual Impairment: Limited Hearing Ability: Normal Senior Engineering Team Leader Required: No Beliefs That Will Affect Care: None marital status: Current Living Situation: Spouse current occupational status: retired Other Information That Helps Us Care for You: No Feels Safe at Home: Yes Safety Concerns: Feels Safe At This Time Smoking Status: Former smoker Do You Dip or Chew Tobacco: No ; Smoking End Date: 1999 ; Second Hand Exposure: No ; Tobacco Cessation Education Requested by Patient: No Hx Alcohol Use: No Hx Substance Use: No Review of Systems Review of Systems: All systems reviewed & are unremarkable except as noted in HPI & below Physical Exam Constitutional: WD/WN, vitals as above healthy appearing, cooperative and comfortable; not disheveled and not in distress Eyes: PERRL, conjunctivae normal, anicteric sclerae ENMT: external ear and nose normal, oropharynx normal Ears: no hearing impairment Neck: trachea midline, no thyromegaly Respiratory: normal respiratory effort, lungs clear to auscultation Auscultation: + diminished lung sounds Cardiovascular: RRR, no murmur, no edema Vessels: posterior tibial pulses present, dorsalis pedis pulses present, brachial pulses present and radial pulses present; no carotid bruit and + abnormal peripheral pulses Extremities: normal capillary refill; no edema Gastrointestinal (Abdomen): normal bowel sounds, soft, nontender, no hepatosplenomegaly Musculoskeletal: no cyanosis or clubbing, extremities motor strength 5/5 Skin: no rashes, warm and dry Neurologic: moves all extremities and awake; no focal motor deficits and not confused Psychiatric: A+Ox3, euthymic affect Results & Data Vital Signs (Past 12 Hours) Vital Signs Temp Pulse Pulse Resp BP Pulse Ox 09/06/19 07:25 62 09/06/19 07:13 36.7 C 66 18 136/74 94 09/06/19 04:00 36.8 C 64 17 101/58 L 92 09/05/19 23:26 37 C 70 16 127/76 92
--- NOTE | 2019-09-06 14:39 | Neurology Consultation ---
Date of Consultation September 06, 2019 Assessment & Plan (1) Acute CVA (cerebrovascular accident): A 74 year old male NOT on ASA or now prior Hx of stroke admitted with left facial droop secondary to embolic right MCA ischcemic stroke secondary right carotid disease. CTA head and neck showed 50% stenosis of right carotid artery. Vascular surgery consulted and recommend medical management. Appreciate input. Will start dual antiplatelet therapy for 21 days then Plavix 75 mg daily. will start Lipitor 80 mg daily. SBP< 140, DBP<90 mm Hg. Will follow up in 8 weeks. (2) Hypertension: (3) Carotid stenosis, bilateral: History of Present Illness Reason for Consultation: Stroke Attending Physician: Del Polanco MD History of Present Illness A 74 year old male with history of sciatica admitted with left facial droop and numbness. He reports feeling well now. Denies history of stroke or TIA. Not on ASA. Denies smoking or EtOH. No history of similar symptoms. Admitted from ED yesterday. CTA head and neck showed soft plaque in the right carotid (50% stenosis) and MRI confirmed a right MCA ischemic stroke. Vascular consulted and recommended medical management. Allergies Allergy/AdvReac Type Severity Reaction Status Date / Time No Known Allergies Allergy Verified 06/30/19 10:48 Home Medications Home Medications Medication Instructions Recorded Confirmed Type acetaminophen 650 mg 650 mg PO Q8H PRN 05/11/18 09/05/19 History tablet,extended release alpha lipoic acid 200 mg capsule 200 mg PO QAM cap 05/11/18 09/05/19 History calcium carbonate 600 mg calcium 600 mg PO QAM tab 05/11/18 09/05/19 History (1,500 mg) tablet cholecalciferol (vitamin D3) 25 1,000 units PO QAM 05/11/18 09/05/19 History mcg (1,000 unit) capsule cranberry extract-vitamin C 250 6 cap PO QAM cap 05/11/18 09/05/19 History mg-60 mg capsule glucosamine sulfate 2KCl 1,000 mg 1,000 mg PO BID 05/11/18 09/05/19 History tablet multivitamin 1 tab PO QAM 05/11/18 09/05/19 History lactobacillus combination no.9 4 4,000 mmu cells PO QAM cap 09/15/18 09/05/19 History billion cell capsule magnesium oxide 400 mg PO QAM tab 12/06/18 09/05/19 History gabapentin 300 mg PO DAILY@1500 09/05/19 09/05/19 History gabapentin 600 mg PO BID 09/05/19 09/05/19 History zinc 50 mg PO QAM 09/05/19 09/05/19 History aspirin 81 mg PO QAM #21 tab 09/06/19 Rx atorvastatin [Lipitor] 80 mg PO DAILY #30 tab 09/06/19 Rx clopidogrel 75 mg PO QAM #30 tab 09/06/19 Rx tramadol 50 mg PO Q6H PRN #20 tab 09/06/19 Rx Patient History Medical History (Updated 09/06/19 @ 17:20 by Del Polanco MD) Carotid stenosis, bilateral Lumbar disc herniation (Chronic) Lumbar radiculopathy (Chronic) Right knee DJD (Chronic) Spinal stenosis of lumbar region with neurogenic claudication (Chronic) Surgical History History of surgical removal of meniscus of knee (Resolved) History of total left hip arthroplasty (Resolved) Family History Mother Lung cancer Father Stroke Social History Preferred Language: Qatari Communication Ability: Effective Visual Impairment: Limited Hearing Ability: Normal Bindery Assistant Required: No Beliefs That Will Affect Care: None marital status: Current Living Situation: Spouse current occupational status: retired Other Information That Helps Us Care for You: No Feels Safe at Home: Yes Safety Concerns: Feels Safe At This Time Smoking Status: Former smoker Do You Dip or Chew Tobacco: No ; Smoking End Date: 1999 ; Second Hand Exposure: No ; Tobacco Cessation Education Requested by Patient: No Hx Alcohol Use: No Hx Substance Use: No Physical Exam Physical Exam: Awake and alert. Speech is clear. Following commands. Left facial droop. Strength 5/5. Sensation intact. No ataxia with finger to nose. EOMI. Tongue midline. Pupils symmetric. Results & Data Vital Signs (Past 12 Hours) Vital Signs Temp Pulse Pulse Resp BP Pulse Ox 09/06/19 11:06 36.6 C 76 19 139/66 93 09/06/19 07:25 62 05/12/20 07:13 36.7 C 66 18 136/74 94 09/06/19 04:00 36.8 C 64 17 101/58 L 92 Diagnostic Findings MRI Brain w/o: There are 2 subcentimeter foci of restricted diffusion identified in the right hemisphere as above. These are consistent with acute to subacute infarcts. 2. No additional foci of acute ischemia are identified. 3. There is no hemorrhage or mass effect. CTA head and neck : . Thrombus/ulcerated noncalcified atherosclerotic plaque along the origin and proximal course of the right ICA, resulting in up to 50% stenosis. The appearance raises concern for an etiology for possible distal emboli. The appearance is not characteristic for dissection, although acute vessel injury is difficult to exclude if there is a history of trauma. 2. Up to 50% stenosis of the proximal left ICA. 3. No focal vessel occlusion. 4. Severe emphysema
[2019-09-06] MEDS ORDERED: GABAPENTIN 300 MG CAP PO SCH (15:00)
[2019-09-06 15:02] VITALS: BP 179/82; PULSE 85; TEMP 98.2; O2SAT 94
[2019-09-06] MEDS ORDERED: STROKE PATIENT DISCHARGE STA (15:27)
--- NOTE | 2019-09-06 15:52 | Pharmacy Report ---
Pharmacist Stroke Counseling - Date of Service September 06, 2019 - Scope: Pharmacy has been consulted to provide medication discharge counseling for this patient admitted with ischemic stroke as per the Pharmacist Discharge Counseling for Stroke Patients Protocol. - Medications on Discharge: Home Medications Medication Instructions Recorded Confirmed acetaminophen 650 mg 650 mg PO Q8H PRN 05/11/18 09/05/19 tablet,extended release alpha lipoic acid 200 mg capsule 200 mg PO QAM cap 05/11/18 09/05/19 calcium carbonate 600 mg calcium 600 mg PO QAM tab 05/11/18 09/05/19 (1,500 mg) tablet cholecalciferol (vitamin D3) 25 1,000 units PO QAM 05/11/18 09/05/19 mcg (1,000 unit) capsule cranberry extract-vitamin C 250 6 cap PO QAM cap 05/11/18 09/05/19 mg-60 mg capsule glucosamine sulfate 2KCl 1,000 mg 1,000 mg PO BID 05/11/18 09/05/19 tablet multivitamin 1 tab PO QAM 05/11/18 09/05/19 lactobacillus combination no.9 4 4,000 mmu cells PO QAM cap 09/15/18 09/05/19 billion cell capsule magnesium oxide 400 mg PO QAM tab 12/06/18 09/05/19 gabapentin 300 mg PO DAILY@1500 09/05/19 09/05/19 gabapentin 600 mg PO BID 09/05/19 09/05/19 zinc 50 mg PO QAM 09/05/19 09/05/19 New Rx's Medication Instructions Recorded aspirin 81 mg PO QAM #21 tab 09/06/19 atorvastatin [Lipitor] 80 mg PO DAILY #30 tab 09/06/19 clopidogrel 75 mg PO QAM #30 tab 09/06/19 tramadol 50 mg PO Q6H PRN #20 tab 09/06/19 - Action: The above medications, specifically ones for stroke treatment/prophylaxis, have been reviewed in detail with the patient and/or patient marketing sales representative(s) prior to discharge. This includes indication, common adverse reactions, drug interactions, and medication administration. Medication counseling has been employed using the teach-back method to ensure understanding. - Outcome: The patient and/or patient marketing sales representative(s) have demonstrated understanding of the medications. Please note, they are aware that the pharmacist will call them within 72 hours post-discharge to confirm that the appropriate medications are being taken and answer any further medication related questions the patient might have at that time. Contact information Individual to be contacted: Monty Relationship to patient (if applicable): patient Phone number: [phone] Best time to call: Morning Additional comments: - Patient seemed convinced that he was told to stop Plavix after 21 days and not aspirin. I did confirm with hospitalist that he is to stop aspirin after 21 days and continue Plavix indefinitely and explained this to the patient. He demonstrated good understanding of this. Thank you for allowing pharmacy to be involved in the care of this patient. Please call [phone] or [phone] with any additional questions - Discharge Information: Pharmacists Notes:: Patient is also ordered to stop meloxicam - please reiterate on follow-up call that patient should no longer be taking this medication.
--- NOTE | 2019-09-06 17:01 | Hospitalist Progress Note ---
Date of Service September 06, 2019 Assessment & Plan (1) Acute CVA (cerebrovascular accident): per admission notes of RASHEEDA Ramos: -patient presenting from home with reports of upper lip numbness and speech difficulty -in the ED, brain MRI shows acute/subacute posterior right frontal lobe and the right parietal lobe infarcts. Neck CTA shows thrombus/ulcerated noncalcified atherosclerotic plaque along the origin and proximal course of the right ICA, resulting in up to 50% stenosis. The appearance raises concern for an etiology for possible distal emboli. Up to 50% stenosis of the proximal left ICA. -s/p full dose ASA in the ED, continue with ASA 8u1mg daily and add Plavix and statin - Echo: pending 09/06/19 neurologic symptoms resolved except for mild lip numbness Neurologist consulted- Dr. Zamarripa, recommend: Aspirin and Plavix x 21 days, then Plavix alone Lipitor 80mg po daily ff up with Neurologist in 8 weeks Vascular Surgeon consulted- Dr. Jordan, recommend: no surgical procedure for bilateral carotid artery stenosis recommend ff up in 1 year with repeat carotid US evaluated by PT/OT: recommend return home ff up with PCP in 1 week (2) Chronic back pain: -continue home dose of gabapentin -PRN Tramadol (3) Prediabetes: A1c 5.9 ff up and monitor as outpatient case and plan of care discussed with patient in detail and at length all questions answered he is understanding, agreeable, comfortable with the plan of care (4) DVT prophylaxis: -SCDs Admission and Anticipated Discharge Date Admission Date: September 05, 2019 Subjective ff up for acute CVA seen resting in bed, sitting up, comfortable not in distress states he feels much better overall, back to his baseline states numbness on his face has resolved except for very mild numbness on the lips denies any other weakness, numbness or focal deficit no headache, dizziness, chest pain ambulating with no problems states he is ready and would like to be discharged Review of Systems Review of Systems: All systems reviewed & are unremarkable except as noted in HPI & below Physical Exam Physical Exam: General- oriented x 3, not in distress, speaks in sentences with no effort or accessory muscle use Eyes- anicteric Neck- no JVD Lungs- clear breath sounds bilaterally, no rales/wheezes Heart- normal rate, regular rhythm; no murmurs Abdomen- normal bowel sounds, nondistended, soft, nontender Extremities- no pretibial edema, no calf tenderness Neuro- alert, oriented x 3; no gross focal neurologic deficits except for mild facial droop on the left Skin- warm & dry Results & Data Results & Data ([facility]) Vital Signs (Past 12 Hours) Vital Signs Temp Pulse Pulse Resp BP Pulse Ox 09/06/19 15:30 36.8 C 85 19 179/82 H 94 09/06/19 15:00 36.8 C 85 19 179/82 H 94 09/06/19 11:06 36.6 C 76 19 139/66 93 09/06/19 07:25 62 09/06/19 07:13 36.7 C 66 18 136/74 94 Laboratory Results Laboratory Results - last 24 hr 09/05/19 09/06/19 09/06/19 10:30 07:00 07:00 WBC 5.46 RBC 4.28 L Hgb 13.3 L Hct 41.1 L MCV 96.0 MCH 31.1 MCHC 32.4 RDW Std Deviation 47.5 H RDW Coeff of Yesi 13.7 Plt Count 173 MPV 10.5 H Immature Gran % (Auto) 0.2 Neut % (Auto) 55.1 Lymph % (Auto) 31.3 Fajardo % (Auto) 9.3 Eos % (Auto) 3.7 Baso % (Auto) 0.4 Immature Gran # (Auto) 0.01 Neut # (Auto) 3.01 Lymph # (Auto) 1.71 [place]ardo # (Auto) 0.51 Eos # (Auto) 0.20 Baso # (Auto) 0.02 Sodium 139 Potassium 4.0 Chloride 106 Carbon Dioxide 27 Anion Gap 7.0 BUN 19 H Creatinine 0.91 Est Cr Clr Drug Dosing 71.3 Est GFR ( Amer) 94.5 Est GFR (Non-Af Amer) 81.6 BUN/Creatinine Ratio 21.1 H Glucose 108 H Estimat Average Glucose 123 Hemoglobin A1c 5.9 H Calcium 8.9 Triglycerides 167 H Cholesterol 162 LDL Cholesterol, Calc 93 VLDL Cholesterol, Calc 33 HDL Cholesterol 36 Cholesterol/HDL Ratio 5
--- NOTE | 2019-09-06 17:09 | Discharge Summary ---
Date of Service September 06, 2019 Admission HPI Per Admitting Provider 74 year old male who presents to the ED with reports of upper lip numbness and speech difficulty. Patient reports that when he woke up this morning his upper lip felt like he had had Novocaine. Then when he took a drink of water with his morning pills, the water spilled out of his mouth. His noted his speech was thick and somewhat slurred. Patient notes that over the past one week he had noted his typing skills worsened and some other fine motor movements. Patient denies any associated unilateral numbness, tingling, or weakness. No headache or blurred vision. Denies lightheadedness, dizziness, diaphoresis, and syncopal events. No chest pain or shortness of breath. Denies abdominal pain, nausea, vomiting, and diarrhea. No other recent illnesses, fevers, or chills. Denies urinary symptoms. In the ED, brain MRI shows two small acute-subacute in the posterior right frontal lobe and the right parietal lobe. CTA neck shows Thrombus/ulcerated noncalcified atherosclerotic plaque along the origin and proximal course of the right ICA, resulting in up to 50% stenosis. Labs are unremarkable. BP somewhat hypertensive but vitals otherwise stable. Patient was given Tylenol, full dose ASA, IV dilaudid, IV Mg+, and IV zofran. Admission Exam Per Admitting Provider Constitutional: WD/WN, vitals as above Eyes: PERRL, conjunctivae normal, anicteric sclerae ENMT: external ear and nose normal, oropharynx normal Respiratory: normal respiratory effort, lungs clear to auscultation Cardiovascular: Rate/Rhythm: regular rate and regular rhythm Vessels: normal peripheral pulses Extremities: no edema Gastrointestinal (Abdomen): normal bowel sounds, soft, nontender, no hepatosplenomegaly Musculoskeletal: no cyanosis or clubbing, extremities motor strength 5/5 Skin: no rashes, warm and dry Neurologic: Speech / Cognition: + abnormal speech (thick speech, mild slurring) Cranial Nerves: PERRL, normal accommodation, EOM intact bilaterally and tongue midline; + abnormal facial strength (mild left facial droop noted) Coordination: normal gehduk-uz-oycm test and normal vtca-uw-ewky test Psychiatric: A+Ox3, euthymic affect Principal Diagnosis ACUTE CEREBROVASCULAR ACCIDENT Discharge Exam Constitutional: WD/WN, vitals as above Eyes: PERRL, conjunctivae normal, anicteric sclerae ENMT: external ear and nose normal, oropharynx normal Respiratory: normal respiratory effort, lungs clear to auscultation Cardiovascular: Rate/Rhythm: regular rate and regular rhythm Vessels: normal peripheral pulses Extremities: no edema Gastrointestinal (Abdomen): normal bowel sounds, soft, nontender, no hepatosplenomegaly Musculoskeletal: no cyanosis or clubbing, extremities motor strength 5/5 Skin: no rashes, warm and dry Neurologic: Speech / Cognition: + abnormal speech (thick speech, mild slurring) Cranial Nerves: PERRL, normal accommodation, EOM intact bilaterally and tongue midline; + abnormal facial strength (mild left facial droop noted) Coordination: normal hirrqr-hw-hhev test and normal adej-tb-iqbo test Psychiatric: A+Ox3, euthymic affect Discharge Data Allergies Allergy/AdvReac Type Severity Reaction Status Date / Time No Known Allergies Allergy Verified 06/30/19 10:48 Consultations 09/05/19 15:41 Consult Neurology Stat 09/05/19 16:25 ED Decision to Admit Stat 09/05/19 16:30 Consult Vascular Surgery Stat 09/05/19 17:48 Consult Case Management - Discharge Planning Routine Ordered Studies 09/05/19 10:24 CT angio head w con Stat Anterior circulation: Intracranial portions of the internal carotid arteries patent to the level of the termini. Anterior cerebral arteries patent. Middle cerebral arteries patent. Anterior communicating artery patent. Posterior circulation: Codominant vertebral arteries. Intradural portions of the vertebral arteries patent. Posterior inferior cerebellar arteries patent. Basilar artery patent. Anterior inferior cerebellar arteries poorly visualized. Superior cerebellar arteries patent. Posterior cerebral arteries patent. Posterior communicating arteries patent hypoplastic or aplastic. Dural venous sinuses: Patent. Other: Allowing for the phase of contrast, brain parenchyma within normal limits. Calvarium intact. IMPRESSION: 1. No evidence of aneurysm, focal vessel occlusion, or significant stenosis of the intracranial arteries. CT angio neck with con Stat Aortic arch: Normal three-vessel aortic arch with patent origins of the branch vessels. Innominate artery: Patent. Right subclavian artery: Patent. Right common carotid artery: Patent. Right internal and external carotid arteries: Predominantly noncalcified atherosclerotic plaque at the carotid bifurcation extending into the proximal right internal carotid artery. There is focal intraluminal thrombus in the pro ximal portion. This results in up to 50% stenosis of the lumen of the proximal ICA. Mid to distal portions widely patent. External carotid artery patent. Left common carotid artery: Patent. Left internal and external carotid arteries: Calcified and noncalcified atherosclerotic plaque at the carotid bifurcation. Up to 50% stenosis of the origin and proximal course of the internal carotid artery. The mid to distal course is widely patent. External carotid artery patent. Left subclavian artery: Mild noncalcified atherosclerotic plaque without significant stenosis. Vertebral arteries: Codominant vertebral arteries. Origins and courses of the bilateral vertebral arteries patent. Other: Limited intracranial evaluation within normal limits. Soft tissues of the neck normal allowing for the phase of contrast. Degenerative changes of the cervical spine. Severe centrilobular emphysema. IMPRESSION: 1. Thrombus/ulcerated noncalcified atherosclerotic plaque along the origin and proximal course of the right ICA, resulting in up to 50% stenosis. The appearance raises concern for an etiology for possible distal emboli. The appearance is not characteristic for dissection, although acute vessel injury is difficult to exclude if there is a history of trauma. 2. Up to 50% stenosis of the proximal left ICA. 3. No focal vessel occlusion. 4. Severe emphysema CT head/brain wo con Stat No acute intracranial hemorrhage, midline shift, intracranial mass, hydrocephalus, territorial ischemia or abnormal extra-axial collection. Mild age-related involutional changes. Patchy white matter hypodensities suggest probable chronic microvascular ischemic disease. Subcentimeter hypodense focus within the region of the left anterior commissure on image 14 series 2 is sug gestive of a prominent perivascular space. The calvarium is intact. The paranasal sinuses, mastoid air cells, and middle ear cavities are clear. IMPRESSION: No acute intracranial abnormality. 09/05/19 11:06 MR brain wo con Stat Brain parenchyma: There are 2 subcentimeter foci of restricted diffusion identified in the posterior right frontal lobe and the right parietal lobe. This is consistent with acute to subacute ischemia. No additional foci of restricted diffusion are identified. There is age-related involutional change noting moderate subcortical and periventricular microangiopathic disease. There is no hemorrhage or mass effect. Muller-white matter differentiation is preserved. No extra-axial fluid collection is seen. The cerebellar tonsils are normal in c onfiguration. Ventricles, sulci, and cisterns: Prominent secondary to involutional change. Pituitary and sella: Partially empty sella is incidentally noted. Intracranial vasculature: Normal flow voids are maintained at the skull base. Orbits: The bony orbits are grossly intact. Orbital contents are normal in appearance. Sinuses and mastoids: There is a left mastoid effusion. The right mastoid air cells are clear. There is mild mucosal thickening in the right frontal sinus. The remaining paranasal sinuses are clear. Calvarium: Unremarkable. Cervical cord: Partially visualized cervical spinal cord is normal in morphology and signal intensity. IMPRESSION: 1. There are 2 subcentimeter foci of restricted diffusion identified in the right hemisphere as above. These are consistent with acute to subacute infarcts. 2. No additional foci of acute ischemia are identified. 3. There is no hemorrhage or mass effect. Hospital Course (1) Acute CVA (cerebrovascular accident): per admission notes of RASHEEDA Ramos: -patient presenting from home with reports of upper lip numbness and speech difficulty -in the ED, brain MRI shows acute/subacute posterior right frontal lobe and the right parietal lobe infarcts. Neck CTA shows thrombus/ulcerated noncalcified atherosclerotic plaque along the origin and proximal course of the right ICA, resulting in up to 50% stenosis. The appearance raises concern for an etiology for possible distal emboli. Up to 50% stenosis of the proximal left ICA. -s/p full dose ASA in the ED, continue with ASA 8u1mg daily and add Plavix and statin - Echo: pending 09/06/19 neurologic symptoms resolved except for mild lip numbness Neurologist consulted- Dr. Zamarripa, recommend: Aspirin and Plavix x 21 days, then Plavix alone Lipitor 80mg po daily ff up with Neurologist in 8 weeks Vascular Surgeon consulted- Dr. Jordan, recommend: no surgical procedure for bilateral carotid artery stenosis recommend ff up in 1 year with repeat carotid US evaluated by PT/OT: recommend return home ff up with PCP in 1 week (2) Chronic back pain: -continue home dose of gabapentin -PRN Tramadol (3) Hypertension: noted to have episodes of systolic bp 170-180 but in AM mostly 120s-130s asymptomatic ff up with PCP next week (4) Prediabetes: A1c 5.9 ff up and monitor as outpatient case and plan of care discussed with patient in detail and at length all questions answered he is understanding, agreeable, comfortable with the plan of care (5) DVT prophylaxis: -SCDs Total Time Total Time Spent Total Time Spent (In Minutes): 45 minutes Discharge Plan Discharge Items Patient Disposition: Home - Self-Care Reason For Visit: CVA Discharge Diagnosis: ACUTE STROKE Activity: Resume your previous activity Activity Comment: GRADUALLY TOLERATED Lifting: Wait until after follow-up appointment Exercise/Sports: Wait until after follow-up appointment Driving/Machine Use: NO DRIVING UNTIL RE-EVALUATED AND ALLOWED BY PRIMARY CARE PHYSICIAN Non-emergency contact: Primary Care Provider Call non-emergency contact if: you have any medication questions and you have a fever Follow-up/Referrals: Joe Jordan MD [Physician] - Oneil Mahoney PA-C [Primary Care Provider] - Joaquín Zamarripa, [Physician] - Diet: Heart Healthy Addtl Attending Provider Instructions: Please review your new medication list and follow instructions carefully. Your new medications include: Aspirin, Plavix- antiplatelets for stroke prevention Take both Aspirin and Plavix for 3 weeks. After that, take Plavix alone indefinitely. Lipitor- cholesterol-lowering medication for stroke prevention Tramadol- for pain control Discontinued medication: Meloxicam- may increase your bleeding risk when taken with Aspirin and Plavix Always take Aspirin and Plavix with a full stomach. Call your physician immediately if you are having muscle pain, cramping or weakness. This may be an adverse effect of Lipitor. To avoid bleeding, do not take medications under the class of NSAIDs examples: Ibuprofen, Naproxen, Meloxicam,etc. Please follow up with your Primary Care Provider next week as outlined above. Follow up with Neurologist Dr. Joaquín Zamarripa in 8 weeks. Please call his office for an appointment. Contact information outlined above. Follow up with Vascular Surgeon Dr. Joe Raymond in 1 year. Please call his office for an appointment. Contact information outlined above. Risk Factors for Stroke: You can reduce your chances of stroke by working with your medical provider to adopt a healthy lifestyle. Some specific ways to lower your chance of stroke are: If you are a smoker, now is the time to stop smoking cigarettes If you are diabetic, improve the control of your blood sugars Avoid excessive amounts of alcohol Control high blood pressure Lose weight if you are overweight Be sure to lead an active lifestyle Eat a healthy diet low in salt, cholesterol and fat You should know about other risk factors for stroke that you are unable to control. These include: Age 55 years or older Male gender Certain racial groups: , or / Family History of Stroke, Mini stroke or Heart Attack Sickle Cell Disease Follow Up: It is important for you to keep your follow up appointments with your medical provider. Who to Call and When: Medical Emergencies: Call 911 immediately if you experience any of the following warning signs and symptoms of Stroke: Sudden numbness or weakness of the face, arm or leg, especially on one side of the body Sudden confusion, trouble speaking or understanding Sudden trouble seeing in one or both eyes Sudden trouble walking, dizziness, loss of balance or coordination Sudden severe headache with no cause Do not delay calling 911 if you experience any warning signs or symptoms of a stroke. Delay in seeking medical attention may affect what treatments can be given to you. . Pending Studies at Discharge: Yes Studies:: Repeat Ultrasound of the Carotid Arteries in 1 year Stand-Alone Forms: Medications to Prevent Stroke, [employer], Smoking Cessation Medications and DC Order Prescriptions: New clopidogrel 75 mg Tablet 75 mg PO QAM Qty: 30 RF: 2 atorvastatin [Lipitor] 80 mg tablet 80 mg PO DAILY Qty: 30 RF: 2 aspirin 81 mg Tablet,Delayed Release (Dr/Ec) 81 mg PO QAM Qty: 21 RF: 0 tramadol 50 mg Tablet 50 mg PO Q6H PRN (Reason: pain) Qty: 20 RF: 0 Continued multivitamin tablet 1 tab PO QAM RF: 0 calcium carbonate 600 mg calcium (1,500 mg) tablet 600 mg PO QAM RF: 0 cholecalciferol (vitamin D3) 1,000 unit capsule 1,000 units PO QAM RF: 0 glucosamine sulfate 2KCl [Glucosamine Relief] 1,000 mg tablet 1,000 mg PO BID RF: 0 alpha lipoic acid 200 mg capsule 200 mg PO QAM RF: 0 cranberry extract-vitamin C 250-60 mg capsule 6 cap PO QAM RF: 0 acetaminophen [Tylenol 8 Hour] 650 mg tablet extended release 650 mg PO Q8H PRN (Reason: Pain) RF: 0 Adult 50 Plus Probiotic 4 billion cell capsule 4,000 mmu cells PO QAM RF: 0 magnesium oxide 400 mg magnesium tablet 400 mg PO QAM RF: 0 gabapentin 300 mg capsule 600 mg PO BID RF: 0 zinc 50 mg Tablet 50 mg PO QAM RF: 0 gabapentin 300 mg capsule 300 mg PO DAILY@1500 RF: 0 Discontinued meloxicam 15 mg tablet 15 mg PO QAM RF: 0 Discharge Orders: Discharge Order (Routine); Ordered 09/06/19 Ordered By: Del Polanco Admission Data Admit Date/Time: 09/05/19 16:26 Attending Provider: Del Polanco Admit Provider: Del Polanco Primary Care Provider: Oneil Mahoney Other Providers: Joaquín Zamarripa ; Del Polanco ; Joe Jordan Other Interventions: Discharge Summary Assessment (RN) Last Done: 09/06/19 15:30 DC Date/Time DO NOT enter until pt leaves facility: 09/06/19 15:57
--- NOTE | 2019-09-09 15:46 | Pharmacy Report ---
Pharmacist Post D/C Phone Note - Phone Note: Date of phone call: September 09, 2019. Individual with whom pharmacist spoke to: HAILEE AGUIRRE The following questions were reviewed during the phone call with responses listed below each: Can you tell me the medications that you are currently taking as well as when and how you take each medication? -See Table Below When have you missed any doses of your medications? - No missed doses What side effects are you having from your medications, specifically, the new medications you were started on? - No side effects to date - Encouraged to continue to monitor What questions do you have about your medications? - Patient asked how he would get refills for his Tramadol. I explained that his PCP would most likely take care of this in the future. What problems are you having obtaining your medications? - None When is your next appointment with your primary care doctor? - Next week As per the Pharmacist Discharge Counseling for Stroke Patients Protocol, this phone call has been completed within 72 hours of discharge. Thank you for allowing us to be involved in the care of this patient. - Home Medications: Home Medications Medication Instructions Recorded Confirmed acetaminophen 650 mg 650 mg PO Q8H PRN 05/11/18 09/05/19 tablet,extended release alpha lipoic acid 200 mg capsule 200 mg PO QAM cap 05/11/18 09/05/19 calcium carbonate 600 mg calcium 600 mg PO QAM tab 05/11/18 09/05/19 (1,500 mg) tablet cholecalciferol (vitamin D3) 25 1,000 units PO QAM 05/11/18 09/05/19 mcg (1,000 unit) capsule cranberry extract-vitamin C 250 6 cap PO QAM cap 05/11/18 09/05/19 mg-60 mg capsule glucosamine sulfate 2KCl 1,000 mg 1,000 mg PO BID 05/11/18 09/05/19 tablet multivitamin 1 tab PO QAM 05/11/18 09/05/19 lactobacillus combination no.9 4 4,000 mmu cells PO QAM cap 09/15/18 09/05/19 billion cell capsule magnesium oxide 400 mg PO QAM tab 12/06/18 09/05/19 gabapentin 300 mg PO DAILY@1500 09/05/19 09/05/19 gabapentin 600 mg PO BID 09/05/19 09/05/19 zinc 50 mg PO QAM 09/05/19 09/05/19 New Rx's Medication Instructions Recorded aspirin 81 mg PO QAM #21 tab 09/06/19 atorvastatin [Lipitor] 80 mg PO DAILY #30 tab 09/06/19 clopidogrel 75 mg PO QAM #30 tab 09/06/19 tramadol 50 mg PO Q6H PRN #20 tab 09/06/19
== END 2019-09-06 15:57 | disposition home or self-care (01) | DRG 66 ==
LOC: ED 10:07 → 2S 16:26

== ENCOUNTER 2019-12-19 07:01 | Observation (INO) ==
--- NOTE | 2019-11-08 14:41 | PAT Medication Instructions ---
Medication Instructions Date of Service November 08, 2019 Home Medications Medication Instructions Recorded aspirin 81 mg PO QAM #21 tab 09/06/19 atorvastatin [Lipitor] 80 mg PO DAILY #30 tab 09/06/19 tramadol 50 mg PO Q6H PRN #20 tab 09/06/19 gabapentin 300 mg capsule 300 mg PO .COMPLEX #150 cap 10/31/19 calcium carbonate 600 mg calcium (1,500 mg) tablet 600 mg PO QAM cholecalciferol (vitamin D3) 25 mcg (1,000 unit) capsule 2,000 units PO QAM cranberry extract-vitamin C 250 mg-60 mg capsule 6 cap PO QAM glucosamine sulfate 2KCl 1,000 mg tablet 1,000 mg PO QAM multivitamin 1 tab PO QAM lactobacillus combination no.9 4 billion cell capsule 4,000 mmu cells PO QAM magnesium oxide 400 mg PO QAM zinc 50 mg PO QAM aspirin 81 mg PO QAM atorvastatin [Lipitor] 80 mg PO DAILY tramadol 50 mg PO Q6H PRN gabapentin 300 mg capsule 300 mg PO .COMPLEX acetaminophen [Tylenol Extra Strength] 1,000 mg PO Q8H PRN alpha lipoic acid 200 mg PO QAM buspirone 10 mg PO BID coQ10 (ubiquinol) 200 mg PO QAM STOP taking 2 weeks before surgery (or as soon as possible if surgery is within 2 weeks) cranberry extract-vitamin C 250 mg-60 mg capsule 6 cap PO QAM glucosamine sulfate 2KCl 1,000 mg tablet 1,000 mg PO QAM alpha lipoic acid 200 mg PO QAM coQ10 (ubiquinol) 200 mg PO QAM DO NOT take the morning of surgery calcium carbonate 600 mg calcium (1,500 mg) tablet 600 mg PO QAM cholecalciferol (vitamin D3) 25 mcg (1,000 unit) capsule 2,000 units PO QAM multivitamin 1 tab PO QAM lactobacillus combination no.9 4 billion cell capsule 4,000 mmu cells PO QAM magnesium oxide 400 mg PO QAM zinc 50 mg PO QAM Take morning of surgery With a small sip of water, OTHERWISE NOTHING TO EAT OR DRINK AFTER MIDNIGHT: aspirin 81 mg PO QAM atorvastatin [Lipitor] 80 mg PO DAILY tramadol 50 mg PO Q6H PRN (okay to take up to 4 hours prior to surgery if needed) gabapentin 300 mg capsule 300 mg PO .COMPLEX acetaminophen [Tylenol Extra Strength] 1,000 mg PO Q8H PRN (okay to take up to 4 hours prior to surgery if needed) buspirone 10 mg PO BID Take evening before surgery tramadol 50 mg PO Q6H PRN (if needed) acetaminophen [Tylenol Extra Strength] 1,000 mg PO Q8H PRN (if needed) buspirone 10 mg PO BID Other Notes If you have any questions please call us at [phone] or [phone] or [phone] or [phone]
--- NOTE | 2019-11-10 12:22 | Anesthesiology Consultation ---
Date of Service November 10, 2019 Assessment & Plan (1) Encounter for pre-operative examination: Per PAT assessment on 11/09: Travel screen- Lives in [facility]. No known COVID-19 positive contacts. No current COVID-19 related symptoms.Per patient, surgeon arranging preop COVID testing. Awaiting results. - ASA instructions: okay to continue perioperatively - Recent CVA (09/05/19, evaluated at [facility]): per neurology inpatient consult 09/06/19 "left facial droop secondary to embolic right MCA ischcemic stroke secondary right carotid disease. CTA head and neck showed 50% stenosis of right carotid artery. Vascular surgery consulted and recommend medical management. Appreciate input. Will start dual antiplatelet therapy for 21 days then Plavix 75 mg daily. will start Lipitor 80 mg daily. SBP< 140, DBP<90 mm Hg." DOS is scheduled for greater than 3 months after CVA but still within 9 months. Reviewed increased risks related to surgery/anesthesia given proximity of CVA. Patient voiced understanding and wishes to proceed with surgery as scheduled. Patient states that Plavix was discontinued 10/02 and baby ASA continued. It appears this was okayed by his PCP. Awaiting response from PCP regarding Plavix discontinuation and if neurology evaluation needed prior to surgery from their perspective. After receiving, will need to review case with anesthesiologist to determine if acceptable risk to proceed with surgery as scheduled. Chart Review Chart Review: Patient seen in Pre Admission Testing Teaching & Discussion Pre-Anesthesia Teaching/Discussion Notes: Instructed NPO after midnight before surgery,except medications with 15 cc of water. Medication instructions provided according to the PAT guidelines. History Surgery Operation Date: 12/19/19 13:00 Proposed Procedures p Right Total Knee Replacement - Nick Jay MD Height/Weight Height: 5 ft 11 in Weight: 86.5 kg Allergies Allergy/AdvReac Type Severity Reaction Status Date / Time No Known Allergies Allergy Verified 11/10/19 10:40 Medications Home Medications Medication Instructions Recorded Confirmed Last Taken calcium carbonate 600 mg calcium 600 mg PO QAM tab 05/11/18 11/10/19 09/04/19 (1,500 mg) tablet cholecalciferol (vitamin D3) 25 2,000 units PO QAM 05/11/18 11/10/19 09/04/19 mcg (1,000 unit) capsule cranberry extract-vitamin C 250 6 cap PO QAM cap 05/11/18 11/10/19 09/04/19 mg-60 mg capsule glucosamine sulfate 2KCl 1,000 mg 1,000 mg PO QAM 05/11/18 11/10/19 09/04/19 tablet multivitamin 1 tab PO QAM 05/11/18 11/10/19 09/04/19 lactobacillus combination no.9 4 4,000 mmu cells PO QAM cap 09/15/18 11/10/19 09/04/19 billion cell capsule magnesium oxide 400 mg PO QAM tab 12/06/18 11/10/19 09/04/19 zinc 50 mg PO QAM 09/05/19 11/10/19 09/04/19 aspirin 81 mg PO QAM #21 tab 09/06/19 11/10/19 Unknown atorvastatin [Lipitor] 80 mg PO DAILY #30 tab 09/06/19 11/10/19 Unknown tramadol 50 mg PO Q6H PRN #20 tab 09/06/19 11/10/19 Unknown gabapentin 300 mg capsule 300 mg PO .COMPLEX #150 cap 10/31/19 11/10/19 Unknown acetaminophen [Tylenol Extra 1,000 mg PO Q8H PRN 11/08/19 11/10/19 Unknown Strength] alpha lipoic acid 200 mg PO QAM 11/08/19 11/10/19 Unknown buspirone 10 mg PO BID 11/08/19 11/10/19 Unknown coQ10 (ubiquinol) 200 mg PO QAM 11/08/19 11/10/19 Unknown Wheeled Walker #1 ea 11/10/19 11/10/19 Unknown Wheeled Walker #1 ea 11/10/19 11/10/19 Unknown Past Medical History Medical History (Updated 11/10/19 @ 14:55 by Klei Sharp) Carotid stenosis, bilateral History of kidney stones Lumbar disc herniation (Chronic) Lumbar radiculopathy (Chronic) Osteoarthritis Right knee DJD (Chronic) Spinal stenosis of lumbar region with neurogenic claudication (Chronic) Stress "reason for buspirone" Stroke 09/05/19- plavix discontinued 10/02, does not follow with neurology, no residual issues Exercise / Class Metabolic Activity III < 4 Walking/Shop/Light housework Past Family History Family History Mother Lung cancer Father Stroke Past Surgical History Surgical History History of arthroscopy RT KNEE History of colonoscopy History of tonsillectomy History of tooth extraction History of total left hip arthroplasty (Resolved) Hx of vasectomy Past Anesthesia History No Hx of Anesthesia Complications and No Family Hx of Anesthesia Complications History of PONV No Hx of PONV and No Hx of Motion Sickness Social History Smoking Status: Former smoker tobacco type: cigarettes Do You Dip or Chew Tobacco: No Smoking End Date: Quit 1999 Hx Alcohol Use: No Alcohol type: wine alcohol intake frequency: holidays/special occasions only Hx Substance Use: No substance use type: does not use Review of Systems Patient denies chest pain, shortness of breath, fever, chills, wheezing, palpitations. Physical Exam Vital Signs VITALS BP 136/75 P 55 TEMP 98.1 SP02 96%Ra RESP 18 PHYSICAL Full neck and c-spine range of motion. Full TMJ range of motion. TMD 3 finger breaths Mallampati Score 2 Dentition: full denture + implants Lungs: clear throughout to auscultation Cardiac: regular rate and rhythm, no murmurs noted Spine: normal Carotid arteries: negative bruit Extremities: no edema Testing Laboratory Results 11/10/19 12:40 11/10/19 12:40 PT 10.3 Seconds (9.0-12.0) 11/10/19 12:40 INR 1.0 (0.9-1.1) 11/10/19 12:40 APTT 28.1 Seconds (21.0-31.0) 11/10/19 12:40 Blood Type O Positive 11/10/19 12:40 Antibody Screen NEGATIVE 11/10/19 12:40 Electrocardiogram Date: 09/05/19 Findings: + NSR @ (74) Chest X-Ray Date: 11/10/19 Findings: + NAD Other Testing Neck CTA: 09/05/19: Thrombus/ulcerated noncalcified atherosclerotic plaque along the origin and proximal course of the right ICA, resulting in up to 50% stenosis. The appearance raises concern for an etiology for possible distal emboli. The appearance is not characteristic for dissection, although acute vessel injury is difficult to exclude if there is a history of trauma. Up to 50% stenosis of the proximal left ICA. No focal vessel occlusion. Severe emphysema Brain MRI: 09/05/19: There are 2 subcentimeter foci of restricted diffusion identified in the right hemisphere as above. These are consistent with acute to subacute infarcts. No additional foci of acute ischemia are identified. There is no hemorrhage or mass effect.
--- NOTE | 2019-11-10 13:09 | XRay Report ---
XR chest Pre-admission PA/Lat HISTORY: Preop. COMPARISON: None. FINDINGS: The lungs are clear. Cardiac silhouette is normal in size. No pleural effusions. No pneumot horax. IMPRESSION: No acute process. ACT 112: Negative or not required by law. Electronically signed by: Jesus Perez M.D. 11/10/2019 1:07 PM
[2019-11-10 14:32] LABS: Partial Thromboplastin Time 28.1 Seconds (21.0-31.0); Prothrombin Time 10.3 Seconds (9.0-12.0)
[2019-11-10 14:33] LABS: Basophils # (auto) 0.01 K/uL (0-0.2); Basophils % (auto) 0.2 %; Eosinophils # (auto) 0.11 K/uL (0-0.5); Eosinophils % (auto) 1.9 %; Hemoglobin 14.5 g/dL (14.0-18.0); Immature Granulocytes # (auto) 0.01 K/uL (0.00-0.02); Immature Granulocytes % (auto) 0.2 %; Lymphocytes # (auto) 1.71 K/uL (1.2-3.4); Lymphocytes % (auto) 28.9 %; Mean Corpuscular Hemoglobin 32.1 pg (25-34); Mean Corpuscular Hgb Conc 33.7 g/dL (32-36); Mean Corpuscular Volume 95.1 fL (80-100); Mean Platelet Volume 11.1 fL (7.4-10.4); Monocytes # (auto) 0.63 K/uL (0.11-0.59); Monocytes % (auto) 10.7 %; Neutrophils # (auto) 3.44 K/uL (1.4-6.5); Neutrophils % (auto) 58.1 %; Platelet Count 169 K/uL (130-400); RDW Standard Deviation 45.4 fL (36.4-46.3); Red Blood Count 4.52 M/uL (4.7-6.1); White Blood Count 5.91 K/uL (4.8-10.8)
[2019-11-10 14:34] LABS: BUN Creatinine Ratio 18.8 (10-20); Blood Urea Nitrogen 17 mg/dl (7-18); Calcium 9.7 mg/dl (8.5-10.1); Carbon Dioxide 30 mmol/L (21-32); Chloride 108 mmol/L (98-107); Creatinine Clr Calc Pharmacy 73.6 ml/min; Est GFR (African American) 94.5; Est GFR (Non-African American) 81.6; Glucose 92 mg/dl (70-99); Potassium 4.8 mmol/L (3.5-5.1); Sodium 144 mmol/L (136-145)
[2019-11-10 14:35] LABS: C Reactive Protein < 0.29 mg/dl (0-0.29)
--- NOTE | 2019-12-16 20:05 | History and Physical Report ---
DATE OF ADMISSION: 12/19/2019 CHIEF COMPLAINT: Right knee pain, discomfort, and recurrent swelling. HISTORY OF PRESENT ILLNESS: The patient is a 74-year-old gentleman who I have been following for the past 6 years for persistent right knee pain, discomfort and swelling. I have been aspirating and injecting his knees, which give him some temporary relief. This has become less successful over time. He has become more debilitated by his pain, discomfort, and swelling. He wears a wrap on it and uses a cane intermittently. He has finished with conservative care and would like to have his right knee replaced. The patient does have a history of some TIAs in the past. He was put on Plavix, but now taken off and managed by his medical doctor. No residual sequelae. PAST MEDICAL HISTORY: 1. TIA/mini strokes without sequelae. 2. Low back pain/sciatica. 3. Kidney stones. PAST SURGICAL HISTORY: Includes, 1. Left total hip replacement done in 06/1999 at [facility]. 2. Right knee arthroscopy done in 1971. ALLERGIES: None. CURRENT MEDICINES: Include, 1. Tylenol. 2. Aspirin 81 mg a day. 3. Lipitor 80 mg a day. 4. Buspirone 10 mg twice a day. 5. Calcium carbonate 600 mg a day. 6. Vitamin D3. 7. Coenzyme Q. 8. Cranberry extract. 9. Gabapentin. 10. Glucosamine. 11. Lactobacillus. 12. Magnesium oxide. 13. Multivitamin. 14. Tramadol. SOCIAL HISTORY: A 74-year-old male. He is . Does not smoke. No significant alcohol intake. FAMILY HISTORY: Noncontributory. REVIEW OF HISTORY: Negative for diabetes, neurologic problems, vascular problems or bleeding disorders. Denies any chest pain or shortness of breath. No history of DVT or PE. No known bleeding problems. Does have this history of possible mini strokes without sequelae. Apparently, it has only really affected his lips and that is it. PHYSICAL EXAMINATION: GENERAL: Shows a pleasant, healthy appearing, middle-aged male. HEENT: Benign. NECK: Supple, no lymphadenopathy. LUNGS: Clear to auscultation. HEART: Has a regular rate and rhythm. ABDOMEN: Soft, nontender, nondistended. EXTREMITIES: Grossly neurovascularly intact except as follows: Examination of the right knee reveals the patient walks with an antalgic gait. He does limp on the right side. He uses a cane for ambulation. He wears a knee brace as well. He has got a large knee joint effusion. Range of motion about 10 degrees short of full extension to 110 degrees of flexion. There is no instability. No pain with hip motion. X-RAYS: X-rays of the right knee were reviewed. It shows advanced right knee DJD. He has got complete loss of his medial joint space. He has tibial femoral subluxation. He has got osteophytes in all 3 compartments. ASSESSMENT: A 74-year-old male with a history of right knee arthroscopy in the past with advanced right knee degenerative joint disease. He has failed all conservative measures and he would really like to have his right knee replaced. PLAN: We are going to take him to the operating room and do right total knee replacement. The risks and benefits of this procedure were explained to the patient including but not limited to DVT, PE, , infection, neurological injury, vascular injury, bleeding problem, pain, limited range of motion, stiffness, failure to his relieve symptoms, incomplete relief of symptoms, need for further surgery in the future, fracture, leg length inequality, nerve palsy, etc. The patient understands and desires to proceed. Informed consent was obtained. He has a history of TIAs without sequelae. He is off the blood thinner. We will use aspirin for DVT prophylaxis. He is hoping to be discharged to home.
[~2019-12-19 07:01] MED LIST: ACETAMINOPHEN 500 MG TAB PO SCH; BUPIVACAINE LIPOSOME/PF 266 MG, BUPIVACAINE/EPINEPHRINE 50 ML, SODIUM CHLORIDE 0.9% 30 ... INFIL SCH; FAMOTIDINE 20 MG TAB PO SCH; GABAPENTIN 300 MG CAP PO SCH; LR 500ML BOLUS, THEN 15ML/HR IV SCH; LR 60ML/HR IV SCH; METOCLOPRAMIDE HCL 10 MG TABLET PO SCH; ceFAZolin 2000MG 2,000 MG/15 ML SYR IV SCH
--- NOTE | 2019-12-19 07:15 | History & Physical Bridge Note ---
Date of Service December 19, 2019 History & Physical Bridge Note I have examined the patient, reviewed the History & Physical and in the interval since the performance of the History & Physical I have noted the following changes of clinical significance: no changes noted
[2019-12-19] MEDS ORDERED: BUPIVACAINE/EPINEPHRINE 0.25% 1:200,000 30 ML VIAL ONE ×2 (07:48→08:41)
[2019-12-19] MEDS ORDERED: BUPIVACAINE 0.5 % 5 MG/1 ML PF 10ML VIAL ONE (07:48)
[2019-12-19] MEDS ORDERED: MIDAZOLAM HCL 1 MG/ML 2ML VIAL ONE ×2 (08:24)
[2019-12-19] MEDS ORDERED: fentaNYL citrate 100 MCG/2 ML VIAL ONE (08:24)
[2019-12-19] MEDS ORDERED: SODIUM CHLORIDE 0.9% PF 50 ML VIAL ONE (08:41)
[2019-12-19] MEDS ORDERED: BUPIVACAINE LIPOSOME 1.3% 266 MG/20 ML VIAL ONE (08:41)
[2019-12-19] MEDS ORDERED: BACITRACIN INJ 50,000 UNIT VIAL ONE (08:41)
[2019-12-19] MEDS ORDERED: ONDANSETRON INJ 2 MG/ML 2 ML VIAL IV PRN ×2 (08:45→12:44)
[2019-12-19] MEDS ORDERED: HYDROmorphone INJ 2 MG/ML SYR/VIAL IV PRN (08:45)
[2019-12-19] MEDS ORDERED: ATROPINE SULFATE 0.1 MG/ML 10ML SYR IV PRN (08:45)
[2019-12-19] MEDS ORDERED: fentaNYL citrate 100 MCG/2 ML VIAL IV PRN (08:45)
[2019-12-19] MEDS ORDERED: ePHEDrine sulfate 50 MG/ML AMP IV PRN (08:45)
[2019-12-19] MEDS ORDERED: PROMETHAZINE HCL 12.5 MG in SODIUM CHLORIDE 0.9% 50 ML IV PRN (08:45)
[2019-12-19] MEDS ORDERED: VANCOMYCIN HCL 1000MG/20ML VIAL ONE (09:15)
[2019-12-19] MEDS ORDERED: LIDOCAINE HCL 2% 2 ML VIAL/AMP(20MG/ML) INFIL ONE (09:31)
[2019-12-19] MEDS ORDERED: ONDANSETRON INJ 2 MG/ML 2 ML VIAL ONE (09:31)
[2019-12-19] MEDS ORDERED: PROPOFOL IV EMULSION 10 MG/ML 20 ML VIAL IV ONE (09:31)
[2019-12-19] MEDS ORDERED: ePHEDrine sulfate 50 MG/ML AMP ONE (09:40)
--- NOTE | 2019-12-19 10:55 | Post Operative Brief Note ---
PG Immediate Post Op with CF Date of Surgery December 19, 2019 Pre & Post Diagnosis Operation Date: 12/19/19 09:20 Pre-Op Diagnosis: RIGHT KNEE DEGENERATIVE JOINT DISEASE WITH KNEE PAIN Post-Op Diagnosis: RIGHT KNEE DEGENERATIVE JOINT DISEASE WITH KNEE PAIN I identified the patient and participated in the time-out.: Yes Procedure Operation Date: 12/19/19 09:20 Actual Procedures p Right Total Knee Replacement(Right) - Nick Jay MD Surgeon Nick Jay MD Account Installation Specialist Vee, [facility] Estimated Blood Loss 50 Findings Consistent with Post-Op Diagnosis Fluids 1300 cc Specimens Specimen Description: A.) right knee bone and tissue Drains Basurto Catheter Anesthesia Type Spinal MAC Complications none Disposition Accompanied Patient To Recovery: No Disposition: Recovery Room
--- NOTE | 2019-12-19 11:59 | Anesthesiology Progress Note ---
Date of Service December 19, 2019 Anesthesia Post Procedure Vital Signs Vital Signs: Temp Pulse Pulse Resp BP Pulse Ox 12/19/19 11:50 36.3 C L 63 12 125/72 92 12/19/19 11:40 69 24 127/71 94 12/19/19 11:30 71 12 120/65 96 12/19/19 11:20 73 17 131/57 L 99 12/19/19 11:10 74 13 121/66 98 12/19/19 11:03 36.3 C L 76 24 95/69 L 98 12/19/19 08:15 36.6 C 56 L 18 170/91 H 97 12/19/19 07:22 36.7 C 66 18 161/92 H 97 Pain Intensity Lower Back: Pain Intensity: 6 Transfer of Care Handoff Completed per policy Notes Mental Status: alert / awake / arousable and participated in evaluation Patient Amnestic to Procedure: Yes Nausea / Vomiting: adequately controlled Pain: adequately controlled Airway Patency, RR, SpO2: stable & adequate BP & HR: stable & adequate Hydration State: stable & adequate Anesthetic Complications: no major complications apparent and Pt Satisfied with anesthetic care
[2019-12-19] MEDS ORDERED: METOCLOPRAMIDE HCL INJ 5 MG/ML 2 ML VIAL IV PRN (12:44)
[2019-12-19] MEDS ORDERED: ALUMINUM/MAGNESIUM SUSP 30 ML UDC PO PRN (12:44)
[2019-12-19] MEDS ORDERED: NALOXONE HCL 0.4 MG/1 ML VIAL/CARP IV PRN (12:44)
[2019-12-19] MEDS ORDERED: MAGNESIUM HYDROXIDE SUSP 30 ML UDC PO PRN (12:44)
[2019-12-19] MEDS ORDERED: bisacodyL 10 MG SUPP PR PRN (12:44)
[2019-12-19] MEDS ORDERED: TAMSULOSIN HCL 0.4 MG CAP PO PRN (12:44)
[2019-12-19] MEDS: SODIUM CHLORIDE 0.9% 1000ML 1,000 ML IV SCH (14:38)
[2019-12-19] MEDS: KETOROLAC TROMETHAMINE 15 MG/ML VIAL IV SCH ×2 (14:43→19:06)
[2019-12-19] MEDS: GABAPENTIN 300 MG CAP PO SCH ×2 (14:44→20:35)
--- NOTE | 2019-12-19 15:32 | XRay Report ---
XR knee RT 1 or 2V routine CLINICAL HISTORY: Surgical Post Op COMPARISON: 11/10/2019 DISCUSSION: There are postsurgical changes of a total right knee arthroplasty and patellar resurfacin g. The femoral and tibial components appear well seated. There are overlying skin gamaliel. There is g as present within the soft tissues consistent with recent surgery. IMPRESSION: Postsurgical changes of a total right knee arthroplasty. ACT 112: Negative or not required by law. Electronically signed by: Evelio Brothers M.D. 12/19/2019 3:30 PM
[2019-12-19] MEDS: ACETAMINOPHEN 500 MG TAB PO SCH (16:10)
[2019-12-19] MEDS: FERROUS GLUCONATE 324 MG TAB PO SCH (16:11)
[2019-12-19] MEDS: ASCORBIC ACID 500 MG TAB PO SCH (16:11)
[2019-12-19] MEDS: ceFAZolin 2000MG 2,000 MG/15 ML SYR IV SCH (16:12)
[2019-12-19] MEDS ORDERED: TRANEXAMIC ACID / 0.7% NACL 1,000 MG/100 ML BAG IV SCH (16:58)
--- NOTE | 2019-12-19 17:23 | Operative Report ---
Post Operative Report Pre & Post Diagnosis Operation Date: 12/19/19 09:20 Pre-Op Diagnosis: RIGHT KNEE DEGENERATIVE JOINT DISEASE WITH KNEE PAIN Post-Op Diagnosis: RIGHT KNEE DEGENERATIVE JOINT DISEASE WITH KNEE PAIN I identified the patient and participated in the time-out.: Yes Procedure Operation Date: 12/19/19 09:20 Actual Procedures p Right Total Knee Replacement(Right) - Nick Jay MD Surgeon Nick Jay MD Claim Taker Vee, PAC Estimated Blood Loss 50 Findings Consistent with Post-Op Diagnosis Operative findings revealed advanced right knee DJD with extensive grade 4 [id number] disease in all 3 compartments most severe in the medial side. He had significant a posterior medial tibial bone wear with a large osteophytes. He had a large knee joint effusion. 10 degree flexion contracture. He had a fixed varus deformity to his knee. He had a chronic ACL deficient knee. Fluids 1300 cc. Specimens Right knee sent for pathology. Drains None. Anesthesia Type Spinal MAC Complications none Disposition Disposition: Recovery Room Indications Patient is a 74-year-old fairly active gentleman is a long history of right knee pain discomfort. He had an open meniscectomy done in the 70s. I been treated with conservative for the past 6 years which is become less successful over asa e. He has had to resort to using a cane to get along. X-rays show advanced right knee tricompartment DJD. He elected proceed with surgical treatment. Description of Procedure Operative implants consist of: 1. Biomet Vanguard size 70 right posterior by femoral component. 2. Biomet size 75 tibial tray. 3. 10 mm posterior stabilized polyethylene insert. 4. 34 x 8 and half all poly-patella. Patient was taken to the operating identified and placed on the operating table supine position protectors were properly padded. IV antibiotics arrived by anesthesia team. A spinal anesthetic and abductor canal block had provided holding area. Basurto catheter was placed in sterile fashion. Right thigh turn was then placed in the right lower extremities and prepped and draped in usual sterile fashion. The right leg was elevated exsanguinated with use of an Esmarch interspace at 3 mmHg. An anterior approach to the right knee was then performed to longitudinal incision centered over the patella. Sharp dissection was got through subcutaneous tissue down to the extensor mechanism. A medial parapatellar arthrotomy incision was made. Some subperiosteal dissection was carried out medially. The fat pad was resected from the patella tendon. Lateral patellofemoral ligament was released. Patella was subluxated laterally and the knee was flexed. The osteophytes were taken off the distal femur. The ACL was absent. The PCL was released from the distal femur and the tibia subluxate anteriorly. The external tibial alignment jig was then placed in the interface the tibia and adjusted 14 mm medially. Proximal tibial cut was made essentially flush with the most efficient aspect of the posterior medial tibial plateau. Some osteophytes were taken off medial and posterior medially. The tibia sized to a size 75. Attention drawn the femur. The distal femur was entered the sharp drop with intramedullary canal was suction. A right 6 degree valgus cutting guide was placed. This femoral cutting block was pinned in place. Distal femoral cut was made to take an additional 3 mm bone off distal femur. The femur was then sized to a size 70. The AP cutting block was pinned parallel to the epicondylar axis which was 4 degrees of external rotation. The anterior cut, anterior chamfer, posterior cut, posterior chamfer cuts were made. Box cutting guide was placed in a just slight lateral. The box cut was made. The knee was flexed. The remnants of the medial and lateral menisci were excised. The osteophytes were taken off the posterior aspect of the femur. A trial femoral component was placed for the tibial tray was pinned in maximum external rotation and the drill and stem punch were used to create defect in proximal tip for the tibial tray. Knee was then trialed and the 10 mm insert fit most appropriately. Attention drawn the patella. Knee by the patella was cleaned of all soft tissues. Patella thickness measured 24 mm in thickness was cut down to 14. Was sized to a size 34 patella. Locals were drilled for the 34 patella. Lateral osteophyte is moved. Patella button was placed. Knee was taken through range of motion patella tracked nicely with no thumbs test. Attention drawn to placing permanent components. All trial components were removed. Bone plug was placed into the distal femur limit blood loss put a double batch Palacos G cement was mixed. I did add an additional gram of vancomycin to the cemented due to his history of a previous open knee surgery. A atVenu size 70 right posterior by femoral component, size 75 tibial tray, 10 mm posterior box polyethylene insert, and a 34 x 8 and half all poly-patella were then cemented in place. Knee was brought out into full extension until the cement hardened. Final cement check was then performed. The pericapsular tissues were injected with total of 100 cc of combination of 20 cc of Exparel, 30 cc normal saline, 50 cc of quarter percent Marcaine with epinephrine. Patient did receive 1 g of tranexamic acid. The turn was then let down for final tourniquet time of 55 minutes. Hemostasis assured use electrocautery. Extensor mechanism closed with combination 1 PDS suture #1 Vicryl suture in [id number] fashion. Extensor mechanism checked found to be intact the subcutaneous tissue then closed with 2 Dexon suture in a buried interrupted fashion skin was closed skin gamaliel. Leg was then cleaned dried a sterile dressing composed Xeroform, 4 x 4's, sterile cast padding, Jairon bandage were applied. Patient then transferred to the recovery room in stable condition. Patient tolerated procedure well and there were no complications. Shaheed Baxter, physician planning assistant, was present for the entire procedure. His assistance was required for appropriate patient positioning, prepping and draping, surgical exposure, performing the technical details of the operation, placement the implants, closure of the wound, and placement of the sterile bandage. I attest to the content of the Intraoperative Record and any orders documented therein. Any exceptions are noted below.
[2019-12-19] MEDS: busPIRone 5 MG TAB PO SCH (20:36)
[2019-12-19] MEDS: DOCUSATE SODIUM 100 MG CAP PO SCH (20:36)
[2019-12-19] MEDS: ASPIRIN 81 MG ECTAB PO SCH (20:36)
[2019-12-19] MEDS: SENNA 8.6 MG TAB PO SCH (20:36)
[2019-12-19] MEDS: traMADol HCL 50 MG TABLET PO PRN (22:24)
[2019-12-19] MEDS: HYDROmorphone INJ 0.5 MG/0.5 ML SYR IV PRN (23:29)
[2019-12-20] MEDS: KETOROLAC TROMETHAMINE 15 MG/ML VIAL IV SCH ×4 (01:14→20:30)
[2019-12-20] MEDS: ceFAZolin 2000MG 2,000 MG/15 ML SYR IV SCH (01:14)
[2019-12-20] MEDS: SODIUM CHLORIDE 0.9% 1000ML 1,000 ML IV SCH (01:28)
[2019-12-20] MEDS: ACETAMINOPHEN 500 MG TAB PO SCH ×3 (05:09→22:14)
[2019-12-20] MEDS: traMADol HCL 50 MG TABLET PO PRN ×3 (05:13→22:14)
[2019-12-20 06:25] LABS: Hematocrit (blood only) 34.6 % (42-52); Hemoglobin 11.6 g/dL (14.0-18.0); Mean Corpuscular Hemoglobin 32.1 pg (25-34); Mean Corpuscular Hgb Conc 33.5 g/dL (32-36); Mean Corpuscular Volume 95.8 fL (80-100); Mean Platelet Volume 10.6 fL (7.4-10.4); Platelet Count 176 K/uL (130-400); RDW Coefficient of Variation 12.9 % (11.5-14.5); Red Blood Count 3.61 M/uL (4.7-6.1)
[2019-12-20 06:59] LABS: BUN Creatinine Ratio 20.9 (10-20); Calcium 8.7 mg/dl (8.5-10.1); Est GFR (African American) 81.4; Est GFR (Non-African American) 70.2
[2019-12-20] MEDS: CHOLECALCIFEROL 1,000 UNITS 25 MCG TAB PO SCH (08:33)
[2019-12-20] MEDS: ASPIRIN 81 MG ECTAB PO SCH ×2 (08:33→20:29)
[2019-12-20] MEDS: ZINC SULFATE 220 MG CAPSULE PO SCH (08:33)
[2019-12-20] MEDS: LACTOBACILLUS ACIDOPHILUS (FLORANEX) TAB PO SCH (08:34)
[2019-12-20] MEDS: MULTIVITAMIN TAB PO SCH ×2 (08:34)
[2019-12-20] MEDS: MAGNESIUM OXIDE 400 MG TAB PO SCH (08:35)
[2019-12-20] MEDS: DOCUSATE SODIUM 100 MG CAP PO SCH ×2 (08:35→20:29)
[2019-12-20] MEDS: GABAPENTIN 300 MG CAP PO SCH ×3 (08:35→20:29)
[2019-12-20] MEDS: ASCORBIC ACID 500 MG TAB PO SCH ×2 (08:35→17:27)
[2019-12-20] MEDS: FERROUS GLUCONATE 324 MG TAB PO SCH ×2 (08:35→17:27)
[2019-12-20] MEDS: CALCIUM CARBONATE 1250MG TAB PO SCH (08:35)
[2019-12-20] MEDS: busPIRone 5 MG TAB PO SCH ×2 (08:35→20:29)
[2019-12-20] MEDS ORDERED: GLUCOSAMINE SULFATE 1000 MG PO SCH (09:00)
[2019-12-20] MEDS ORDERED: CRANBERRY EXTRACT VITAMIN C PO SCH (09:00)
[2019-12-20] MEDS ORDERED: GABAPENTIN 300 MG CAP PO SCH (09:00)
[2019-12-20] MEDS ORDERED: NON-FORMULARY MEDICATION (Coq10 (Ubiquinol) 200 MG) PO SCH (09:00)
[2019-12-20] MEDS ORDERED: NON-FORMULARY MEDICATION (Alpha Lipoic Acid 200 MG) PO SCH (09:00)
--- NOTE | 2019-12-20 11:02 | Progress Notes ---
DATE: 12/20/2019 SUBJECTIVE: A 74-year-old gentleman postop day 1 from right knee replacement. He is doing quite well. Pain is controlled. Had a pretty good night. No chest pain or shortness of breath. Not feeling dizzy or lightheaded. OBJECTIVE: VITAL SIGNS: Temperature is 36.8. Vital signs stable. GENERAL: Shows a pleasant elderly male. He is sitting up in his bedside chair and eating breakfast this morning. LUNGS: Clear to auscultation. HEART: Regular rate and rhythm. ABDOMEN: Soft, nontender, nondistended. EXTREMITIES: Grossly neurovascularly intact except as follows: Examination of the right lower extremity reveals the dressing to be clean, dry, and intact. He can do a straight leg raise. He can dorsiflex and plantarflex his foot appropriately. He is neurologically intact. LABORATORY DATA: Hemoglobin 11.6. Hematocrit 34.6. Electrolytes are stable. ASSESSMENT: A 74-year-old gentleman postoperative day 1 from right knee replacement, doing quite well. His pain is controlled. He is neurologically intact. PLAN: 1. DVT prophylaxis including thigh-high TEDs, SCDs, and aspirin twice a day. 2. PT/OT, he can weightbear as tolerated. Right total knee protocol. 3. Pain control, doing well with current pain regimen. 4. Disposition: He is planning to be discharged to home with some home health and his 's assistance once adequately recovered and medically stable.
[2019-12-20] MEDS: HYDROmorphone INJ 0.5 MG/0.5 ML SYR IV PRN (15:53)
[2019-12-20] MEDS: SENNA 8.6 MG TAB PO SCH (20:29)
[2019-12-21] MEDS: KETOROLAC TROMETHAMINE 15 MG/ML VIAL IV SCH ×2 (01:05→07:29)
[2019-12-21] MEDS: ACETAMINOPHEN 500 MG TAB PO SCH (05:34)
[2019-12-21] MEDS: traMADol HCL 50 MG TABLET PO PRN ×2 (05:34→11:11)
[2019-12-21] MEDS: MULTIVITAMIN TAB PO SCH ×2 (07:29→07:32)
[2019-12-21] MEDS: ASPIRIN 81 MG ECTAB PO SCH (07:29)
[2019-12-21] MEDS: GABAPENTIN 300 MG CAP PO SCH (07:30)
[2019-12-21] MEDS: ZINC SULFATE 220 MG CAPSULE PO SCH (07:30)
[2019-12-21] MEDS: busPIRone 5 MG TAB PO SCH (07:30)
[2019-12-21] MEDS: DOCUSATE SODIUM 100 MG CAP PO SCH (07:30)
[2019-12-21] MEDS: CHOLECALCIFEROL 1,000 UNITS 25 MCG TAB PO SCH (07:31)
[2019-12-21] MEDS: MAGNESIUM OXIDE 400 MG TAB PO SCH (07:31)
[2019-12-21] MEDS: LACTOBACILLUS ACIDOPHILUS (FLORANEX) TAB PO SCH (07:31)
[2019-12-21] MEDS: CALCIUM CARBONATE 1250MG TAB PO SCH (07:31)
[2019-12-21] MEDS: ASCORBIC ACID 500 MG TAB PO SCH (07:32)
[2019-12-21] MEDS: FERROUS GLUCONATE 324 MG TAB PO SCH (07:32)
--- NOTE | 2019-12-21 09:06 | Progress Notes ---
DATE: 12/21/2019 SUBJECTIVE: A 74-year-old gentleman postop day 2 from a right knee replacement. He is doing pretty well. Therapy has gone well. Pain is controlled. OBJECTIVE: VITAL SIGNS: Temperature 37.0. Vital signs stable. GENERAL: Shows a pleasant elderly male. He is lying in bed, looks pretty comfortable this morning. EXTREMITIES: Examination of the right leg reveals the dressing to be in place. Just a trace bit of drainage. Calf is soft and supple. He is neurologically intact. ASSESSMENT: A 74-year-old gentleman postop day 2 from right knee replacement, doing pretty well. Pain is controlled. He is neurologically intact. PLAN: 1. DVT prophylaxis including thigh-high TEDs, SCDs, and aspirin twice a day. 2. PT/OT. Weight bear as tolerated. Right total knee protocol. 3. Pain control, doing well with current pain regimen. 4. Disposition: Plan to discharge to home with some home health later today.
--- NOTE | 2019-12-25 10:29 | Discharge Summary ---
Date of Service December 25, 2019 Admission HPI Per Admitting Provider Documented in the H & P Admission Exam (Per Admitting) Constitutional Documented in the H & P Discharge Data Consultations 12/19/19 12:44 Consult Case Management - Discharge Planning Routine Procedures Performed Operation Date: 12/19/19 09:20 Actual Procedures p Right Total Knee Replacement(Right) - Nick Jay MD Hospital Course (1) Status post total right knee replacement: This patient is a 74 year old male admitted on 12/19/19 and underwent total knee arthroplasty. He tolerated the procedure well and there were no complications. Transferred to the PACU post op and later to the orthopedic floor for further care. He was given ancef for antibiotic prophylaxis. He was also given KAJAL stockings, SCDs, and aspirin for DVT prophylaxis. Hemoglobin, hematocrit, and vital signs were monitored during his hospital stay and remained stable. Did not require any blood transfusions. There were no complications during his hospital stay. By post op day #2 the patient was tolerating a regular diet, pain was reasonably controlled with oral pain medicine, and he was participating in physical therapy. On post op day #2 the patient was discharged home and set up with home health care. He was given printed discharge instructions including prescriptions for extra strength tylenol, aspirin, and tramadol. Continue physical therapy, weight bearing as tolerated. Continue KAJAL stockings. Follow up approximately 2 weeks post op or sooner if there are problems or concerns. Coding Level of Care Code None Diagnoses Status post total right knee replacement Z96.651
== END 2019-12-21 11:35 | disposition home health service (06) ==
LOC: 3E 07:01 → ASU 07:01

== ENCOUNTER 2024-11-24 17:28 | Inpatient (IN) ==
[2024-11-24 17:58] LABS: Hematocrit (blood only) 41.0 % (42.0-52.0); Hemoglobin 13.4 g/dl (14.0-18.0); Immature Granulocytes # (auto) 0.03 K/uL (0.01-0.20); Immature Granulocytes % (auto) 0.4 %; Mean Corpuscular Hemoglobin 30.5 pg (25.0-34.0); Mean Corpuscular Volume 93.2 fL (80.0-100.0); Platelet Count 216 K/uL (130-400); RDW Standard Deviation 48.8 fL (36.4-46.3); Red Blood Count 4.40 M/uL (4.70-6.10); White Blood Count 6.91 K/ul (4.8-10.8)
[2024-11-24 18:16] LABS: Alanine Aminotransferase 13.0 U/L (7-52); Albumin Globulin Ratio 1.3 (0.9-2); Alkaline Phosphatase 79.0 U/L (34-104); Anion Gap 6.0 (3-11); Bilirubin,Total 0.3 mg/dl (0.2-1.0); Blood Urea Nitrogen 23.0 mg/dl (6-23); Calcium 9.4 mg/dl (8.6-10.3); Carbon Dioxide 28.0 mmol/L (21-32); Chloride 103.0 mmol/L (98-107); Creatinine Clr Calc Pharmacy 56.8 ml/min; Globulin 3.2 gm/dl (2.5-4.0); Glucose 134.0 mg/dl (70-99(Fasting)); Lipase 37.0 U/L (11-82); Potassium 4.0 mmol/L (3.5-5.1); Sodium 137.0 mmol/L (136-145); Total Protein 7.5 gm/dl (6.0-8.3)
--- NOTE | 2024-11-24 18:22 | Emergency Department Note ---
Impression & Plan Chest pain, Non-ST elevation [place] (NSTEMI) ED Provider Note HISTORY OF PRESENT ILLNESS: Patient is an 79-year-old male presenting with right arm and right shoulder pain. Patient reports that earlier today he had a "heaviness and tired sensation" in his right arm and right shoulder that spread across his chest and into his bilateral neck. He states that he sat down and symptoms improved. He states that him and his went out shopping and then when he got home he started having that sensation again that caused him to sit down. He reports he took his blood pressure noted to be very high. He denies any chest pain. Denies any shortness of breath or abdominal pain. Denies any nausea or vomiting. He denies any history of cardiac stents. He denies any DVT or PE history. Is not on any anticoagulation or antiplatelet therapy. He is symptom- free on arrival to the emergency department. Denies any trauma to the shoulder. ROS: as above PHYSICAL EXAM: Constitutional: Patient appears in no acute distress. HENT: Head: Normocephalic and atraumatic. Eyes: EOMI, PERRL Mouth/Throat: Mucous membranes moist. Neck: Trachea midline. Neck supple. Cardiovascular: RRR, No murmurs, rubs or gallops. Intact distal pulses. Pulmonary/Chest: No respiratory distress. Breath sounds clear and equal bilaterally. No wheezes or rales. Abdominal: Abdomen soft, no tenderness, rebound or guarding. Musculoskeletal: No edema, tenderness or deformity noted. Skin: Warm and dry. No rash, erythema, pallor or cyanosis Psychiatric: Appropriate mood and affect for situation. Neurological: Alert and keenly responsive. CN II-XII grossly intact, moving all extremities equally and fully. MDM: - Vitals signs showed hypertension - History obtained via patient. History as above. - Chronic conditions affecting care: carotid artery stenosis; HTN - Differential diagnoses include, but are not limited to: Acute coronary syndrome; pulmonary embolism; dissection; tension pneumothorax; esophageal rupture; pneumonia - Order placed for continuous cardiac monitoring. At this time, monitor showed rate of 69 bpm with normal sinus rhythm, per my interpretation. - External medical records reviewed. - EKG image interpreted by myself showed normal sinus rhythm. Rate 69 bpm. QT 378. No acute ischemic changes - Laboratory workup interpreted by myself showed normal WBC; stable electrolytes; normal AST/ALT; normal PT/INR; elevated troponin (109.9); normal BNP - CXR image reviewed by myself is negative for pneumonia, per my interpretation. - CTA chest negative for PE or dissection - Patient given 324 mg PO aspirin. - He may chest pain-free in the emergency department. - Repeat troponin up-trended to 589. - Discussed case with [facility] trade embalmer on-call, Dr. Esparza, at 20:35. He agrees with starting the patient on heparin. - Discussion was had with correctional case records supervisor about patient's case and need for admission - Hospitalist, Dr. Braden, consulted for admission. He was updated on cardiology's recommendations and Dr. Braden ordered the heparin drip. - [facility]. I have personally spent 44 minutes of critical care time in the direct management of this patient. This includes bedside care, interpretation of diagnostic studies, and testing, discussion with consultants, patient, and family members, and other required patient management activities. This 44 minutes is in excess of all separately billable procedures. ASSESSMENT AND PLAN: Diagnosis: Chest pain; NSTEMI Plan: admit Past Med/Surg History Problem List (Updated 11/24/24 @ 19:54 by Irais Mcneal MD) Non-ST elevation AK (NSTEMI) (Acute) Chest pain (Acute) Bilateral carpal tunnel syndrome Cervicalgia Encounter for pre-operative examination Myofascial pain Status post total right knee replacement DVT prophylaxis Right knee DJD (Chronic) Hypertension Prediabetes Chronic back pain Chronic pain syndrome Abdominal aortic ectasia Lumbar facet joint syndrome Ambulatory dysfunction Lumbar radiculopathy (Chronic) Lumbar disc herniation (Chronic) Spinal stenosis of lumbar region with neurogenic claudication (Chronic) Medical History Osteoarthritis History of kidney stones Stress Stroke Carotid stenosis, bilateral Surgical History History of total right knee replacement (TKR) History of arthroscopy Hx of vasectomy History of colonoscopy History of tooth extraction History of tonsillectomy History of total left hip arthroplasty Family History Mother Lung cancer Father Stroke Social History Smoking Status: Former smoker Tobacco Type: Cigarettes Second Hand Exposure: No; Do You Dip or Chew Tobacco: No; Hx Alcohol Use: Yes Alcohol type: wine Alcohol Intake Frequency Comment: once a month Hx Substance Use: No Preferred Language: Uzbek Communication Ability: Effective Visual Impairment: Limited Hearing Ability: Normal Manager Competitive Intelligence Required: No Beliefs That Will Affect Care: None marital status: Current Living Situation: Spouse current occupational status: retired Feels Safe at Home: Yes Assistive Devices: Cane, Denture - Lower, Glasses and Walker Allergies Allergies Allergy/AdvReac Type Severity Reaction Status Date / Time No Known Allergies Allergy Verified 12/10/23 14:46 Home Meds Home Medications Medication Instructions Recorded Confirmed calcium carbonate 600 mg PO QAM 05/11/18 12/10/23 cholecalciferol (vitamin D3) 25 2,000 units PO QAM 05/11/18 12/10/23 mcg (1,000 unit) capsule cranberry extract-vitamin C 250 1 cap PO QAM 05/11/18 12/10/23 mg-60 mg capsule glucosamine sulfate 2KCl 1,000 mg 1,000 mg PO QAM 05/11/18 12/10/23 tablet (Glucosamine Relief) multivitamin 1 tab PO QAM 05/11/18 12/10/23 magnesium oxide 400 mg PO QAM 12/06/18 12/10/23 zinc 50 mg tablet 50 mg PO QAM 09/05/19 12/10/23 acetaminophen 500 mg tablet 1,000 mg PO Q8H PRN Pain 11/08/19 12/10/23 (Tylenol Extra Strength) alpha lipoic acid 200 mg capsule 200 mg PO QAM 11/08/19 12/10/23 buspirone 10 mg tablet 10 mg PO BID 11/08/19 12/10/23 amlodipine 10 mg tablet 10 mg PO QAM 01/02/23 12/10/23 losartan 25 mg tablet 25 mg PO QAM 01/02/23 12/10/23 tramadol 50 mg tablet 50 mg PO .COMPLEX 04/09/23 12/10/23 diclofenac sodium 75 mg 75 mg PO BID PRN Pain 07/13/23 12/10/23 tablet,delayed release prednisone 5 mg tablet 5 mg PO QAM 07/13/23 12/10/23 diazepam 5 mg tablet (Valium) 5 mg PO .COMPLEX 07/31/23 12/10/23 lidocaine 5 % topical patch 1 patch topical DAILY 12/10/23 12/10/23 methylprednisolone 4 mg tablets in 4 mg PO DAILY 12/10/23 12/10/23 a dose pack Previous Rx's Medication Instructions Recorded baclofen 10 mg tablet 10 mg PO BID PRN muscle spasm #60 01/02/23 tabs gabapentin 600 mg tablet 300 mg (1/2 x 600 mg) PO .COMPLEX 12/15/23 #60 tabs Results & Data (ED) Vital Signs Vital Signs - 24 hr 11/24/24 17:37 11/24/24 17:37 11/24/24 17:37 Temperature 36.7 C Temperature Source Oral Pulse Rate 69 Pulse Rate [Right Finger] 65 Pulse Rhythm Regular Pulse Rhythm [Right Finger] Regular Pulse Strength Normal Pulse Strength [Right Finger] Normal Respiratory Rate 18 15 Respiratory Effort / Characteristics Non-Labored Non-Labored Respiratory Depth Normal Normal Respiratory Pattern Regular Regular Blood Pressure 171/109 H Blood Pressure [Right Arm] 171/109 H Blood Pressure Mean 129 Blood Pressure Mean [Right Arm] 129 Blood Pressure Position Lying Blood Pressure Position [Right Arm] Lying Pulse Oximetry 96 95 94 Oxygen Delivery Method Room Air Room Air Room Air Sepsis Recent Fever Within 48 Hours No Sepsis New/Unexplained Change in Mental Status N/A Sepsis Action Taken by Nursing No Action Required 11/24/24 17:40 11/24/24 19:12 11/24/24 20:40 Temperature Temperature Source Pulse Rate 69 Pulse Rate [Right Finger] 65 65 Pulse Rhythm Pulse Rhythm [Right Finger] Pulse Strength Pulse Strength [Right Finger] Respiratory Rate 16 18 Respiratory Effort / Characteristics Non-Labored Spontaneous Non-Labored Spontaneous Respiratory Depth Normal Normal Respiratory Pattern Blood Pressure Blood Pressure [Right Arm] 174/104 H 168/100 H Blood Pressure Mean Blood Pressure Mean [Right Arm] 127 122 Blood Pressure Position Blood Pressure Position [Right Arm] Sitting Pulse Oximetry 93 98 Oxygen Delivery Method Room Air Room Air Sepsis Recent Fever Within 48 Hours Sepsis New/Unexplained Change in Mental Status Sepsis Action Taken by Nursing Laboratory Data 11/24/24 17:37 11/24/24 17:37 Lab Results 11/24/24 11/24/24 Range/Units 17:37 19:49 WBC 6.91 (4.8-10.8) K/ul RBC 4.40 L (4.70-6.10) M/uL Hgb 13.4 L (14.0-18.0) g/dl Hct 41.0 L (42.0-52.0) % MCV 93.2 (80.0-100.0) fL MCH 30.5 (25.0-34.0) pg MCHC 32.7 (32.0-36.0) g/dL RDW Std Deviation 48.8 H (36.4-46.3) fL RDW Coeff of Yesi 14.3 (11.5-14.5) % Plt Count 216 (130-400) K/uL MPV 10.1 (9.4-12.4) fL Immature Gran % (Auto) 0.4 % Neut % (Auto) 73.3 % Lymph % (Auto) 15.5 % [place] % (Auto) 9.0 % Eos % (Auto) 1.2 % Baso % (Auto) 0.6 % Neut # (Auto) 5.07 (1.40-6.50) K/uL Lymph # (Auto) 1.07 L (1.20-3.40) K/uL [place] # (Auto) 0.62 H (0.11-0.59) K/uL Eos # (Auto) 0.08 (0.00-0.50) K/uL Baso # (Auto) 0.04 (0.00-0.20) K/uL Immature Gran # (Auto) 0.03 (0.01-0.20) K/uL PT 10.2 (9.0-12.0) Seconds INR 0.9 (0.9-1.1) Sodium 137 (136-145) mmol/L Potassium 4.0 (3.5-5.1) mmol/L Chloride 103 (98-107) mmol/L Carbon Dioxide 28 (21-32) mmol/L Anion Gap 6 (3-11) BUN 23 (6-23) mg/dl Creatinine 1.02 (0.6-1.4) mg/dl Est Cr Clr Drug Dosing 56.8 ml/min eGFR 73.84 BUN/Creatinine Ratio 22.5 H (10-20) Glucose 134 H (70-99(Fasting)) mg/dl Calcium 9.4 (8.6-10.3) mg/dl Total Bilirubin 0.3 (0.2-1.0) mg/dl AST 20 (13-39) U/L ALT 13 (7-52) U/L Alkaline Phosphatase 79 (34-104) U/L Troponin I High Sens 109.9 H* 589.4 H* D (0-20) pg/ml B-Natriuretic Peptide 48 (0-100) pg/ml Total Protein 7.5 (6.0-8.3) gm/dl Albumin 4.3 (3.4-5.0) gm/dl Globulin 3.2 (2.5-4.0) gm/dl Albumin/Globulin Ratio 1.3 (0.9-2) Lipase 37 (11-82) U/L Administered Medications Discontinued Medications Aspirin (Aspirin Chew 324 Mg) 324 mg PO NOW STA Stop: 11/24/24 18:26 Last Admin: 11/24/24 18:35 Dose: 324 mg Documented By: ROBIN Ioversol (Optiray 320 125ml) 115 ml IV ONCE ONE Stop: 11/24/24 18:55 Last Admin: 11/24/24 18:54 Dose: 115 ml Documented By: TOBY Imaging Data Radiologist's Impression: Chest X-Ray 11/24/24 17:30 Clinical History: Chest pain Technique: A frontal view of the chest was obtained Findings: There are no confluent pulmonary infiltrates. The heart size is within normal limits. No pleural effusion or pneumothorax is seen. There are suspected small calcified pulmonary granulomas No fracture is noted. There is thoracic scoliosis and degenerative disc disease. There are stimulator leads within the spinal canal Impression: No active disease Electronically signed by Albin Pratt 11-24-2024 7:32 PM Chest CTA 11/24/24 18:26 EXAM: CT angio chest dissec wo/w con CLINICAL HISTORY: chest pain TECHNIQUE: CT angiography of the chest was performed with and without intravenous contrast 115 ml optiray 320 with the following protocol: axial images with, reconstructed coronal and sagittal images. Non-contrast images were initially acquired, followed by contrast-enhanced images in arterial and venous phases. Intravenous contrast [name and volume] was administered using automated injection techniques. Bolus tracking was employed to optimize arterial phase imaging. One of these 3D techniques was utilized: Maximum Intensity Pixel (MIP), 3D Reconstructed Images, Volume Rendered Images, Surface Shaded Rendering. One of the following dose reduction techniques was utilized for this exam: Automated exposure control, adjustment of the mA and/or kV according to patient size, and use of iterative reconstruction. DLP: 827.79 mGy.cm COMPARISON: 11/24/2024 16:55:04 PRECIPITATE WASHER reviewed FINDINGS: Aorta and Great Vessels: Ascending Aorta: Normal in caliber, no aneurysm, dissection, or significant atherosclerosis. Aortic Arch: Normal in caliber, no aneurysm, dissection, or significant atherosclerosis. Descending Aorta: Normal in caliber, no aneurysm, dissection, or significant atherosclerosis. Pulmonary Arteries: The main pulmonary artery and its branches are patent. No evidence of pulmonary embolism or significant stenosis. Heart: Cardiac Chambers: Normal in size. No evidence of cardiomegaly. Pericardium: No pericardial effusion or thickening. Lungs and Pleura: Emphysematous lung changes are seen mainly at upper lung [place]. Lungs are clear without evidence of consolidation, collapse, or focal lesions. No pleural effusion or pleural thickening. Mediastinum: No mediastinal mass or abnormal lymphadenopathy. Normal appearance of the trachea and central bronchi. Hilar Structures: Hilar structures are normal without enlargement. Chest Wall: No mass lesions or abnormalities in the chest wall. Vascular Structures: Superior Vena Cava: Patent without evidence of stenosis or thrombus. Inferior Vena Cava: Patent without evidence of stenosis or thrombus. Bones and Soft Tissues: No fractures, lytic, or blastic lesions of the visualized bony structures. Soft tissues are unremarkable.Multilevel cervical thoracic spondylosis. IMPRESSION: 1. No evidence of pulmonary thromboembolism. Unremarkable CT angio chest. 2. Upper lobe emphysematous lung changes suggesting centrilobular pattern. 3. Multilevel spondylosis. Electronically signed by Farooq Angulo 11-24-2024 8:53 PM Discharge Plan Visit Data Chief Complaint: Chest Pain Stated Complaint: CHEST PRESSURE, SHOULDER PRESSURE ED Provider: Irais Mcneal Discharge Problem: Chest pain, Non-ST elevation [place] (NSTEMI) Condition: Fair Discharge Instructions Interventions: ED Discharge Assessment Last Done: 11/24/24 20:40 Forms Stand Alone Forms: [employer] Prescriptions Prescriptions: No Action tramadol 50 mg tablet 50 mg PO .COMPLEX Rx Instructions: 50 mg orally 1-2 tabs PO BID-TID; lidocaine 5 % adhesive patch,medicated 1 patch topical DAILY methylprednisolone 4 mg tablets,dose pack 4 mg PO DAILY multivitamin tablet 1 tab PO QAM calcium carbonate 600 mg calcium (1,500 mg) tablet 600 mg PO QAM cholecalciferol (vitamin D3) 1,000 unit capsule 2,000 units PO QAM glucosamine sulfate 2KCl [Glucosamine Relief] 1,000 mg tablet 1,000 mg PO QAM cranberry extract-vitamin C 250-60 mg capsule 1 cap PO QAM magnesium oxide 400 mg magnesium tablet 400 mg PO QAM amlodipine 10 mg tablet 10 mg PO QAM losartan 25 mg tablet 25 mg PO QAM baclofen 10 mg tablet 10 mg PO BID PRN (Reason: muscle spasm) Qty: 60 2RF gabapentin 600 mg tablet 300 mg PO .COMPLEX Qty: 60 5RF Rx Instructions: 300 mg orally 0.5 tab PO BID and 1 PO qhs; zinc 50 mg Tablet 50 mg PO QAM buspirone 10 mg Tablet 10 mg PO BID alpha lipoic acid 200 mg Capsule 200 mg PO QAM acetaminophen [Tylenol Extra Strength] 500 mg Tablet 1,000 mg PO Q8H PRN (Reason: Pain) prednisone 5 mg Tablet 5 mg PO QAM diclofenac sodium 75 mg Tablet,Delayed Release (Dr/Ec) 75 mg PO BID PRN (Reason: Pain) diazepam [Valium] 5 mg tablet 5 mg PO .COMPLEX Rx Instructions: 5 mg PO 1 PO Night prior to procedure, repeat 1.5 hours before procedure, may repeat 0.5 hours prior to procedure; Also may use 1 PO single does for post- procedural spasm Referrals Referrals: Marina Montes De Oca CRNP [Primary Care Provider] -
[2024-11-24] MEDS: ASPIRIN CHEW 324 MG PO STA (18:35)
[2024-11-24] MEDS: OPTIRAY 320 125ml IV ONE (18:54)
[2024-11-24 18:55] LABS: INR 0.9 (0.9-1.1); Prothrombin Time 10.2 Seconds (9.0-12.0)
--- NOTE | 2024-11-24 19:32 | XRay Report ---
Clinical History: Chest pain Technique: A frontal view of the chest was obtained Findings: There are no confluent pulmonary infiltrates. The heart size is within normal limits. No pleural effusion or pneumothorax is seen. There are suspected small calcified pulmonary granulomas No fracture is noted. There is thoracic scoliosis and degenerative disc disease. There are stimulator leads within the spinal canal Impression: No active disease Electronically signed by Albin Pratt 11-24-2024 7:32 PM
--- NOTE | 2024-11-24 20:20 | History & Physical Report ---
Date of Service November 24, 2024 Assessment & Plan (1) Non-ST elevation SD (NSTEMI): Plan: 79-year-old male with past medical history significant for prediabetes, hypertension, BPH, degenerative disc disease, lumbar radiculopathy, anxiety, history of tobacco use, history of TIA presents with bilateral shoulder and chest tightness and discomfort. Patient states around 9:30 AM and 10 AM he felt bilateral shoulder and upper chest tiredness and discomfort. He sat in a chair and it subsided. They went to town and had some grocery shopping and came back home. He was sitting on a chair to read paper around 2 PM when again noticed similar bilateral shoulder and upper chest tiredness and discomfort. He went and sat in different chair and at the time was feeling hungry he tried to eat and was drinking soup but the discomfort escalated , did not feel like eating and came to the ER. By the time he came to the ER the discomfort and tiredness subsided. Currently resting comfortably. Denies any shortness of breath. Denies any sweating. No headache. No nausea. No dizziness. No runny nose or sore throat. No cough. No fevers. No abdominal pain. Normal bowel and bladder movements. Denies any blood in the stools. No rash. Hemodynamics are okay. States when ambulating did not had chest pain or shortness of breath. Non-ST elevated SD Patient had couple of episodes of bilateral shoulder and upper chest tightness and discomfort Currently asymptomatic EKG no acute findings Initial troponin 109 and repeat is 589 Received aspirin, Cardiology notified by ER Started on IV heparin Repeat EKG no acute findings Close monitor on telemetry N.p.o. Will follow serial enzymes and echo Will check lipid profile Hypertension On amlodipine and losartan Will monitor Anxiety On buspirone BPH On finasteride Degenerative disc disease We will hold diclofenac Prediabetes We will follow HbA1c levels DVT prophylaxis On IV heparin Disposition Telemetry Full code History of Present Illness Chief Complaint: Bilateral shoulder tiredness and upper chest tiredness Primary Care Provider: RASHEEDA Goodman 79-year-old male with past medical history significant for prediabetes, hypertension, BPH, degenerative disc disease, lumbar radiculopathy, anxiety, history of tobacco use, history of TIA presents with bilateral shoulder and chest tightness and discomfort. Patient states around 9:30 AM and 10 AM he felt bilateral shoulder and upper chest tiredness and discomfort. He sat in a chair and it subsided. They went to town and had some grocery shopping and came back home. He was sitting on a chair to read paper around 2 PM when again noticed similar bilateral shoulder and upper chest tiredness and discomfort. He went and sat in different chair and at the time was feeling hungry he tried to eat and was drinking soup but the discomfort escalated , did not feel like eating an d came to the ER. By the time he came to the ER the discomfort and tiredness subsided. Currently resting comfortably. Denies any shortness of breath. Denies any sweating. No headache. No nausea. No dizziness. No runny nose or sore throat. No cough. No fevers. No abdominal pain. Normal bowel and bladder movements. Denies any blood in the stools. No rash. Hemodynamics are okay. States when ambulating did not had chest pain or shortness of breath. Past medical history. As mentioned above. Past surgical history. Repair of knee cartilage. Left total hip replacement. Removal of tonsils. Social history. . Smoked 1 pack a day for 30 years. Quit smoking in 1997. Alcohol rarely. No drug use. Family history. Father had skin cancer. Prostate cancer. Stroke. Mother had lung cancer. Son had cardiomyopathy. Son had osteoarthritis. Sister had kidney cancer. Sister had osteoarthritis. Sister had skin cancer. Allergies Allergy/AdvReac Type Severity Reaction Status Date / Time No Known Allergies Allergy Verified 12/10/23 14:46 Home Medications Medication Instructions Recorded Confirmed Type amlodipine 10 mg tablet 10 mg PO DAILY 11/24/24 11/24/24 History buspirone 10 mg tablet 10 mg PO BID 11/24/24 11/24/24 History diclofenac sodium 75 mg 75 mg PO BID 11/24/24 11/24/24 History tablet,delayed release finasteride 5 mg tablet 5 mg PO DAILY 11/24/24 11/24/24 History losartan 25 mg tablet 25 mg PO BID 11/24/24 11/24/24 History tramadol 50 mg tablet 50 mg PO Q6H PRN Severe Pain 11/24/24 11/24/24 History (Scale Score 7-10) Past Med/Surg History Problem List (Updated 07/31/25 @ 19:54 by Irais Mcneal MD) Non-ST elevation SD (NSTEMI) (Acute) Chest pain (Acute) Bilateral carpal tunnel syndrome Cervicalgia Encounter for pre-operative examination Myofascial pain Status post total right knee replacement DVT prophylaxis Right knee DJD (Chronic) Hypertension Prediabetes Chronic back pain Chronic pain syndrome Abdominal aortic ectasia Lumbar facet joint syndrome Ambulatory dysfunction Lumbar radiculopathy (Chronic) Lumbar disc herniation (Chronic) Spinal stenosis of lumbar region with neurogenic claudication (Chronic) Medical History Osteoarthritis History of kidney stones Stress Stroke Carotid stenosis, bilateral Surgical History History of total right knee replacement (TKR) History of arthroscopy Hx of vasectomy History of colonoscopy History of tooth extraction History of tonsillectomy History of total left hip arthroplasty Family History Mother Lung cancer Father Stroke Social History Smoking Status: Former smoker Tobacco Type: Cigarettes Second Hand Exposure: No; Do You Dip or Chew Tobacco: No; Hx Alcohol Use: Yes Alcohol type: wine Alcohol Intake Frequency Comment: once a month Hx Substance Use: No Preferred Language: Amharic Communication Ability: Effective Visual Impairment: Limited Hearing Ability: Normal Adult Remedial Education Instructor Required: No Beliefs That Will Affect Care: None marital status: Current Living Situation: Spouse current occupational status: retired Feels Safe at Home: Yes Assistive Devices: Cane Review of Systems Review of Systems: All systems reviewed & are unremarkable except as noted in HPI & below Physical Exam Physical Exam: General- Not in distress Head- atraumatic Eyes- PERRL, ENT- oropharynx clear Neck- supple, no JVD. Lungs- clear to auscultation no wheezing or crackles Heart- regular rhythm; no murmur, no gallop. Abdomen- normal bowel sounds, soft, nontender, no distension. Extremities- no pretibial edema, no erythema seen Neuro- alert, oriented PERRL, no facial palsy; no dysarthria; moves extremities Results & Data Results & Data Vital Signs (Past 12 Hours) Vital Signs Temp Pulse Pulse Resp BP BP Pulse Ox 11/24/24 19:12 65 16 174/104 H 93 11/24/24 17:40 69 11/24/24 17:37 65 15 171/109 H 94 11/24/24 17:37 95 11/24/24 17:37 36.7 C 69 18 171/109 H 96 O2 Del Method 11/24/24 19:12 Room Air 11/24/24 17:40 11/24/24 17:37 Room Air 11/24/24 17:37 Room Air 11/24/24 17:37 Room Air Diagnostic Findings Laboratory Results WBC 6.93 K/ul (4.8-10.8) 11/25/24 04:26 RBC 4.36 M/uL (4.70-6.10) L 11/25/24 04:26 Hgb 13.3 g/dl (14.0-18.0) L 11/25/24 04:26 Hct 39.8 % (42.0-52.0) L 11/25/24 04:26 MCV 91.3 fL (80.0-100.0) 11/25/24 04:26 MCH 30.5 pg (25.0-34.0) 11/25/24 04:26 MCHC 33.4 g/dL (32.0-36.0) 11/25/24 04:26 RDW Std Deviation 46.9 fL (36.4-46.3) H 11/25/24 04:26 RDW Coeff of Yesi 13.9 % (11.5-14.5) 11/25/24 04:26 Plt Count 197 K/uL (130-400) 11/25/24 04:26 MPV 10.2 fL (9.4-12.4) 11/25/24 04:26 Immature Gran % (Auto) 0.4 % 11/25/24 04:26 Neut % (Auto) 64.7 % 11/25/24 04:26 Lymph % (Auto) 22.4 % 11/25/24 04:26 [place] % (Auto) 10.1 % 11/25/24 04:26 Eos % (Auto) 2.0 % 11/25/24 04:26 Baso % (Auto) 0.4 % 11/25/24 04:26 Neut # (Auto) 4.48 K/uL (1.40-6.50) 11/25/24 04:26 Lymph # (Auto) 1.55 K/uL (1.20-3.40) 11/25/24 04:26 [place] # (Auto) 0.70 K/uL (0.11-0.59) H 11/25/24 04:26 Eos # (Auto) 0.14 K/uL (0.00-0.50) 11/25/24 04:26 Baso # (Auto) 0.03 K/uL (0.00-0.20) 11/25/24 04: Immature Gran # (Auto) 0.03 K/uL (0.01-0.20) 11/25/24 04: PT 10.2 Seconds (9.0-12.0) 11/24/24 17:37 INR 0.9 (0.9-1.1) 11/24/24 17:37 APTT 29 Seconds (21-31) 11/24/24 17:37 PTT Ratio 1.1 11/24/24 17:37 Heparin Anti-Xa, Unfract 1.02 IU/ml (0.3-0.7) H* 11/25/24 04:26 Sodium 137 mmol/L (136-145) 11/25/24 04:26 Potassium 3.5 mmol/L (3.5-5.1) 11/25/24 04:26 Chloride 103 mmol/L (98-107) 11/25/24 04:26 Carbon Dioxide 26 mmol/L (21-32) 11/25/24 04:26 Anion Gap 8 (3-11) 11/25/24 04:26 BUN 19 mg/dl (6-23) 11/25/24 04:26 Creatinine 0.88 mg/dl (0.6-1.4) 11/25/24 04:26 Est Cr Clr Drug Dosing 65.8 ml/min 11/25/24 04:26 eGFR 86.39 11/25/24 04:26 BUN/Creatinine Ratio 21.6 (10-20) H 11/25/24 04:26 Glucose 110 mg/dl (70-99(Fasting)) H 11/25/24 04:26 Estimat Average Glucose 114 mg/dl 11/25/24 04:26 Hemoglobin A1c 5.6 % (4.5-5.6) 11/25/24 04:26 Calcium 9.2 mg/dl (8.6-10.3) 11/25/24 04:26 Magnesium 1.9 mg/dl (1.7-2.4) 11/25/24 04:26 Total Bilirubin 0.3 mg/dl (0.2-1.0) 11/24/24 17:37 AST 20 U/L (13-39) 11/24/24 17:37 ALT 13 U/L (7-52) 11/24/24 17:37 Alkaline Phosphatase 79 U/L (34-104) 11/24/24 17:37 Troponin I High Sens 589.4 pg/ml (0-20) H* D 11/24/24 19:49 B-Natriuretic Peptide 48 pg/ml (0-100) 11/24/24 17:37 Total Protein 7.5 gm/dl (6.0-8.3) 11/24/24 17:37 Albumin 4.3 gm/dl (3.4-5.0) 11/24/24 17:37 Globulin 3.2 gm/dl (2.5-4.0) 11/24/24 17:37 Albumin/Globulin Ratio 1.3 (0.9-2) 11/24/24 17:37 Lipase 37 U/L (11-82) 11/24/24 17:37 Impressions Chest X-Ray 11/24/24 17:30 Clinical History: Chest pain Technique: A frontal view of the chest was obtained Findings: There are no confluent pulmonary infiltrates. The heart size is within normal limits. No pleural effusion or pneumothorax is seen. There are suspected small calcified pulmonary granulomas No fracture is noted. There is thoracic scoliosis and degenerative disc disease. There are stimulator leads within the spinal canal Impression: No active disease Electronically signed by Albin Pratt 11-24-2024 7:32 PM Chest CTA 11/24/24 18:26 EXAM: CT angio chest dissec wo/w con CLINICAL HISTORY: chest pain TECHNIQUE: CT angiography of the chest was performed with and without intravenous contrast 115 ml optiray 320 with the following protocol: axial images with, reconstructed coronal and sagittal images. Non-contrast images were initially acquired, followed by contrast-enhanced images in arterial and venous phases. Intravenous contrast [name and volume] was administered using automated injection techniques. Bolus tracking was employed to optimize arterial phase imaging. One of these 3D techniques was utilized: Maximum Intensity Pixel (MIP), 3D Reconstructed Images, Volume Rendered Images, Surface Shaded Rendering. One of the following dose reduction techniques was utilized for this exam: Automated exposure control, adjustment of the mA and/or kV according to patient size, and use of iterative reconstruction. DLP: 827.79 mGy.cm COMPARISON: 11/24/2024 16:55:04 PIANO REGULATOR reviewed FINDINGS: Aorta and Great Vessels: Ascending Aorta: Normal in caliber, no aneurysm, dissection, or significant atherosclerosis. Aortic Arch: Normal in caliber, no aneurysm, dissection, or significant atherosclerosis. Descending Aorta: Normal in caliber, no aneurysm, dissection, or significant atherosclerosis. Pulmonary Arteries: The main pulmonary artery and its branches are patent. No evidence of pulmonary embolism or significant stenosis. Heart: Cardiac Chambers: Normal in size. No evidence of cardiomegaly. Pericardium: No pericardial effusion or thickening. Lungs and Pleura: Emphysematous lung changes are seen mainly at upper lung [place]. Lungs are clear without evidence of consolidation, collapse, or focal lesions. No pleural effusion or pleural thickening. Mediastinum: No mediastinal mass or abnormal lymphadenopathy. Normal appearance of the trachea and central bronchi. Hilar Structures: Hilar structures are normal without enlargement. Chest Wall: No mass lesions or abnormalities in the chest wall. Vascular Structures: Superior Vena Cava: Patent without evidence of stenosis or thrombus. Inferior Vena Cava: Patent without evidence of stenosis or thrombus. Bones and Soft Tissues: No fractures, lytic, or blastic lesions of the visualized bony structures. Soft tissues are unremarkable.Multilevel cervical thoracic spondylosis. IMPRESSION: 1. No evidence of pulmonary thromboembolism. Unremarkable CT angio chest. 2. Upper lobe emphysematous lung changes suggesting centrilobular pattern. 3. Multilevel spondylosis. Electronically signed by Farooq Angulo 11-24-2024 8:53 PM ECG Additional Comments: ECG. Normal sinus rhythm rate of 69. No acute ST changes seen. Code Status & VTE Plan VTE Prophylaxis Plan VTE Prophylaxis will be ordered: Yes
--- NOTE | 2024-11-24 20:54 | CT Scan Report ---
EXAM: CT angio chest dissec wo/w con CLINICAL HISTORY: chest pain TECHNIQUE: CT angiography of the chest was performed with and without intravenous contrast 115 ml optiray 320 with the following protocol: axial images with, reconstructed coronal and sagittal images. Non-contrast images were initially acquired, followed by contrast-enhanced images in arterial and venous phases. Intravenous contrast [name and volume] was administered using automated injection techniques. Bolus tracking was employed to optimize arterial phase imaging. One of these 3D techniques was utilized: Maximum Intensity Pixel (MIP), 3D Reconstructed Images, Volume Rendered Images, Surface Shaded Rendering. One of the following dose reduction techniques was utilized for this exam: Automated exposure control, adjustment of the mA and/or kV according to patient size, and use of iterative reconstruction. DLP: 827.79 mGy.cm COMPARISON: 11/24/2024 16:55:04 APPEALS NURSE reviewed FINDINGS: Aorta and Great Vessels: Ascending Aorta: Normal in caliber, no aneurysm, dissection, or significant atherosclerosis. Aortic Arch: Normal in caliber, no aneurysm, dissection, or significant atherosclerosis. Descending Aorta: Normal in caliber, no aneurysm, dissection, or significant atherosclerosis. Pulmonary Arteries: The main pulmonary artery and its branches are patent. No evidence of pulmonary embolism or significant stenosis. Heart: Cardiac Chambers: Normal in size. No evidence of cardiomegaly. Pericardium: No pericardial effusion or thickening. Lungs and Pleura: Emphysematous lung changes are seen mainly at upper lung [place]. Lungs are clear without evidence of consolidation, collapse, or focal lesions. No pleural effusion or pleural thickening. Mediastinum: No mediastinal mass or abnormal lymphadenopathy. Normal appearance of the trachea and central bronchi. Hilar Structures: Hilar structures are normal without enlargement. Chest Wall: No mass lesions or abnormalities in the chest wall. Vascular Structures: Superior Vena Cava: Patent without evidence of stenosis or thrombus. Inferior Vena Cava: Patent without evidence of stenosis or thrombus. Bones and Soft Tissues: No fractures, lytic, or blastic lesions of the visualized bony structures. Soft tissues are unremarkable.Multilevel cervical thoracic spondylosis. IMPRESSION: 1. No evidence of pulmonary thromboembolism. Unremarkable CT angio chest. 2. Upper lobe emphysematous lung changes suggesting centrilobular pattern. 3. Multilevel spondylosis. Electronically signed by Farooq Angulo 11-24-2024 8:53 PM
[2024-11-24] MEDS: HEPARIN 25000 UNIT/500 ML D5W 25,000 UNITS/500 ML BAG IV SCH (22:40)
[2024-11-24] MEDS: HEPARIN SOD (PORCINE) 1000 UNIT/ML IV ONE ×2 (22:40→22:41)
[2024-11-24] MEDS: Heparin IV Adult Wt-Based Standard w/ INITIAL Bolus Protocol IV STA (22:41)
[2024-11-24] MEDS: LOSARTAN POTASSIUM 25 MG TAB PO STA (22:41)
[2024-11-24] MEDS: busPIRone 5 MG TAB PO STA (22:41)
[2024-11-24 23:20] LABS: Partial Thromboplastin Time 29 Seconds (21-31)
[2024-11-25 05:04] LABS: Hematocrit (blood only) 39.8 % (42.0-52.0); Hemoglobin 13.3 g/dl (14.0-18.0); Immature Granulocytes # (auto) 0.03 K/uL (0.01-0.20); Immature Granulocytes % (auto) 0.4 %; Mean Corpuscular Hemoglobin 30.5 pg (25.0-34.0); Mean Corpuscular Volume 91.3 fL (80.0-100.0); Platelet Count 197 K/uL (130-400); RDW Standard Deviation 46.9 fL (36.4-46.3); Red Blood Count 4.36 M/uL (4.70-6.10); White Blood Count 6.93 K/ul (4.8-10.8)
[2024-11-25 05:20] LABS: Anion Gap 8.0 (3-11); Blood Urea Nitrogen 19.0 mg/dl (6-23); Calcium 9.2 mg/dl (8.6-10.3); Carbon Dioxide 26.0 mmol/L (21-32); Chloride 103.0 mmol/L (98-107); Creatinine Clr Calc Pharmacy 65.8 ml/min; Glucose 110.0 mg/dl (70-99(Fasting)); Magnesium 1.9 mg/dl (1.7-2.4); Potassium 3.5 mmol/L (3.5-5.1); Sodium 137.0 mmol/L (136-145)
[2024-11-25 05:48] LABS: ANTI-Xa, UFH(UnfractionatedHep 1.02 IU/ml (0.3-0.7)
[2024-11-25 07:40] LABS: Hemoglobin A1C 5.6 % (4.5-5.6)
--- NOTE | 2024-11-25 09:00 | Cardiology Consultation ---
Date of Consultation November 25, 2024 Assessment & Plan (1) Non-ST elevation CA (NSTEMI): * Continue ASA, Heparin infusion * Start metoprolol succinate 12.5 mg daily * Continue ASA, amlodipine. * Await result of lipid panel. In meantime, start atorvastatin 40 mg daily * NPO, plan for cardiac catheterization today. History of Present Illness Attending Physician: Eh Coughlin MD History of Present Illness Monty Oliveros is an 79 year old male seen in cardiology consultation per the request of Dr Braden for the evaluation of chest discomfort and NSTEMI. The patient describes that yesterday he was in his normal state of health. His spouse, Suzy, who accompanies him at the bedside along with the patient getting ready to go grocery shopping and the patient felt a sensation of feeling "tired "and had a discomfort in both of his shoulders and upper arms. After they returned from shopping and were putting away groceries he once again felt generalized fatigue and he sat down in a recliner to rest and read the newspaper and had recurrence of the symptoms however they were more pronounced at that time with noted discomfort in both of his shoulders and upper arms that radiate to his chest. The symptoms persisted and therefore he summoned EMS. His symptoms resolved spontaneously while in the hospital overnight last night and he states he is comfortable at the time of my assessment. 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 [employer] Quit smoking in 2019 when he had hip replacement at [facility] Allergies Allergy/AdvReac Type Severity Reaction Status Date / Time No Known Allergies Allergy Verified 12/10/23 14:46 Home Medications Medication Instructions Recorded Confirmed Type amlodipine 10 mg tablet 10 mg PO DAILY 11/24/24 11/24/24 History buspirone 10 mg tablet 10 mg PO BID 11/24/24 11/24/24 History diclofenac sodium 75 mg 75 mg PO BID 11/24/24 11/24/24 History tablet,delayed release finasteride 5 mg tablet 5 mg PO DAILY 11/24/24 11/24/24 History losartan 25 mg tablet 25 mg PO BID 11/24/24 11/24/24 History tramadol 50 mg tablet 50 mg PO Q6H PRN Severe Pain 11/24/24 11/24/24 History (Scale Score 7-10) Patient History Medical History Osteoarthritis History of kidney stones Stress Taking Buspirone Stroke 08/2019, advised by neuro to f/u PRN per 11/2019 visit No residual issues/no issues since Carotid stenosis, bilateral Surgical History History of total right knee replacement (TKR) History of arthroscopy Right knee Hx of vasectomy History of colonoscopy History of tooth extraction History of tonsillectomy History of total left hip arthroplasty Family History Mother Lung cancer Father Stroke Social History Smoking Status: Former smoker Tobacco Type: Cigarettes Second Hand Exposure: No; Do You Dip or Chew Tobacco: No; Hx Alcohol Use: Yes Alcohol type: wine Alcohol Intake Frequency Comment: once a month Hx Substance Use: No Preferred Language: Pashto Communication Ability: Effective Visual Impairment: Limited Hearing Ability: Normal Resizer Operator Required: No Beliefs That Will Affect Care: None marital status: Current Living Situation: Spouse current occupational status: retired Feels Safe at Home: Yes Assistive Devices: Cane Review of Systems Review of Systems: All systems reviewed & are unremarkable except as noted in HPI & below Physical Exam Physical Exam: General: no acute distress and stated age Eyes: conjunctiva are pink and non-injected, sclera clear Neck: normal jugular venous pulse, no hepatojugular reflux Chest: normal shape and normal respiratory effort Lungs: clear to auscultation and percussion Cardiac Exam: - regular heart sounds, no murmurs, rubs, or gallops, no jugular venous distention Abdomen: abdomen soft, non-tender, no abnormal masses and no hepatosplenomegaly Extremities: no edema and no cyanosis Neuro:awake, conversant, follows commands, no focal motor deficits Psych: appropriate affect and insight. Results & Data Vital Signs (Past 12 Hours) Vital Signs Temp Pulse Pulse Resp BP Pulse Ox O2 Del Method 11/25/24 07:03 36.6 C 78 16 146/80 H 95 Room Air 11/25/24 07:00 69 11/25/24 03:34 36.8 C 78 16 136/72 96 Room Air 11/25/24 01:26 70 11/24/24 23:56 36.4 C L 60 18 137/81 96 Room Air 11/24/24 21:28 Room Air 11/24/24 21:28 36.5 C 104 H 18 179/91 H 97 Room Air 11/24/24 21:27 11/24/24 21:22 77 O2 Del Method 11/25/24 07:03 11/25/24 07:00 11/25/24 03:34 11/25/24 01:26 11/24/24 23:56 11/24/24 21:28 11/24/24 21:28 11/24/24 21:27 Room Air 11/24/24 21:22 Laboratory Results Cardiac Enzymes 11/24/24 11/24/24 Range/Units 17:37 19:49 AST 20 (13-39) U/L Troponin I High Sens 109.9 H* 589.4 H* D (0-20) pg/ml B-Natriuretic Peptide 48 (0-100) pg/ml Coagulation 11/24/24 Range/Units 17:37 PT 10.2 (9.0-12.0) Seconds APTT 29 (21-31) Seconds B-Natriuretic Peptide 48 (0-100) pg/ml CBC 11/24/24 11/25/24 Range/Units 17:37 04:26 WBC 6.91 6.93 (4.8-10.8) K/ul RBC 4.40 L 4.36 L (4.70-6.10) M/uL Hgb 13.4 L 13.3 L (14.0-18.0) g/dl Hct 41.0 L 39.8 L (42.0-52.0) % Plt Count 216 197 (130-400) K/uL Neut # (Auto) 5.07 4.48 (1.40-6.50) K/uL Lymph # (Auto) 1.07 L 1.55 (1.20-3.40) K/uL [place] # (Auto) 0.62 H 0.70 H (0.11-0.59) K/uL Eos # (Auto) 0.08 0.14 (0.00-0.50) K/uL Baso # (Auto) 0.04 0.03 (0.00-0.20) K/uL Comprehensive Metabolic Panel 11/24/24 11/25/24 Range/Units 17:37 04:26 Sodium 137 137 (136-145) mmol/L Potassium 4.0 3.5 (3.5-5.1) mmol/L Chloride 103 103 (98-107) mmol/L Carbon Dioxide 28 26 (21-32) mmol/L BUN 23 19 (6-23) mg/dl Creatinine 1.02 0.88 (0.6-1.4) mg/dl Glucose 134 H 110 H (70-99(Fasting)) mg/dl Calcium 9.4 9.2 (8.6-10.3) mg/dl AST 20 (13-39) U/L ALT 13 (7-52) U/L Alkaline Phosphatase 79 (34-104) U/L Total Protein 7.5 (6.0-8.3) gm/dl Albumin 4.3 (3.4-5.0) gm/dl Diagnostic Findings Chest x-ray: Radiology report describes no active cardiopulmonary disease CT angiogram of the chest: No pulmonary [place], upper lobe emphysematous lung changes suggestive centrilobular emphysema, multilevel spondylosis EKG performed 11/24/2024 at 2125: Normal sinus rhythm at 60 bpm, normal EKG, compared to previous performed at 1732, the T wave inversions noted in leads III and aVF had resolved. Echocardiogram performed today interpreted independently: Normal left ventricular wall motion and LVEF in the range of 55-60. Grade 1 diastolic dysfunction. No significant valvular disease [place] [address] IN/OBS CONSULT LVL 3,45M Patient Type New History Comprehensive Exam Comprehensive Medical Decision Making High Complexity Diagnoses Non-ST elevation CA (NSTEMI) I21.4 Time Spent (min) 45
[2024-11-25] MEDS: METOPROLOL SUCC 25MG EXT REL TAB PO SCH (09:55)
[2024-11-25] MEDS: LOSARTAN POTASSIUM 25 MG TAB PO SCH (09:56)
[2024-11-25] MEDS: ACETAMINOPHEN 325 MG TAB PO PRN (09:56)
[2024-11-25] MEDS: busPIRone 5 MG TAB PO SCH (09:56)
[2024-11-25] MEDS: ASPIRIN 81 MG ECTAB PO SCH (09:56)
[2024-11-25] MEDS: FINASTERIDE 5 MG TAB PO SCH (09:56)
[2024-11-25 10:00] LABS: Cholesterol 142.0 mg/dl (0-200); HDL Cholesterol 47.0 mg/dl; Triglycerides 68.0 mg/dl (0-150)
--- NOTE | 2024-11-25 11:30 | Pre Anesthesia Assessment ---
Date of Service November 25, 2024 Pre Sedation Assessment Vital Signs Temp Pulse Pulse Resp BP BP Pulse Ox 11/25/24 07:03 97.9 F 78 16 146/80 H 95 11/25/24 07:00 69 11/25/24 03:34 98.2 F 78 16 136/72 96 11/25/24 01:26 70 11/24/24 23:56 97.5 F L 60 18 137/81 96 11/24/24 21:28 11/24/24 21:28 97.7 F 104 H 18 179/91 H 97 11/24/24 21:27 11/24/24 21:22 77 11/24/24 20:40 65 18 168/100 H 98 11/24/24 19:12 65 16 174/104 H 93 11/24/24 17:40 69 11/24/24 17:37 65 15 171/109 H 94 11/24/24 17:37 95 11/24/24 17:37 98.1 F 69 18 171/109 H 96 O2 Del Method O2 Del Method 11/25/24 07:03 Room Air 11/25/24 07:00 11/25/24 03:34 Room Air 11/25/24 01:26 11/24/24 23:56 Room Air 11/24/24 21:28 Room Air 11/24/24 21:28 Room Air 11/24/24 21:27 Room Air 11/24/24 21:22 11/24/24 20:40 Room Air 11/24/24 19:12 Room Air 11/24/24 17:40 11/24/24 17:37 Room Air 11/24/24 17:37 Room Air 11/24/24 17:37 Room Air Cardiovascular + regular rate Respiratory + respiratory effort normal Pre-Sedation Airway Assessment Smoking Status: Former smoker Hx Sleep Apnea: No Hx Difficult Intubation: No Short, Thick Neck: No Thyromental Distance: > or= 3.5 Finger Breadths Oral Cavity: + Dental Abnormalities Mallampati Class: II ASA: ASA3 Procedure Planning Contraindications for Sedation: none Current Medications Reviewed: Yes Notes The planned sedation has been discussed with the patient. Informed Consent was obtained. I have identified the patient, determined the appropriateness of sedation and have assessed the patient immediately prior to the procedure. All medicine(s) and interventions are by my order.
[2024-11-25 11:56] LABS: ANTI-Xa, UFH(UnfractionatedHep 0.44 IU/ml (0.3-0.7)
[2024-11-25] MEDS: niCARdipine 2,000 MCG/20 ML SYR ONE ×2 (12:47→18:51)
[2024-11-25] MEDS: NITROGLYCERIN/D5W 100MCG/ML 20ML SYR ONE ×2 (12:48→18:51)
--- NOTE | 2024-11-25 13:31 | Post Anesthesia Assessment ---
Date of Service November 25, 2024 Post Sedation Assessment Vital Signs Temp Pulse Pulse Resp BP BP Pulse Ox 11/25/24 11:50 98 F 69 18 123/72 96 11/25/24 07:03 97.9 F 78 16 146/80 H 95 11/25/24 07:00 69 11/25/24 03:34 98.2 F 78 16 136/72 96 11/25/24 01:26 70 11/24/24 23:56 97.5 F L 60 18 137/81 96 11/24/24 21:28 11/24/24 21:28 97.7 F 104 H 18 179/91 H 97 11/24/24 21:27 11/24/24 21:22 77 11/24/24 20:40 65 18 168/100 H 98 11/24/24 19:12 65 16 174/104 H 93 11/24/24 17:40 69 11/24/24 17:37 65 15 171/109 H 94 11/24/24 17:37 95 11/24/24 17:37 98.1 F 69 18 171/109 H 96 O2 Del Method O2 Del Method 11/25/24 11:50 Room Air 11/25/24 07:03 Room Air 11/25/24 07:00 11/25/24 03:34 Room Air 11/25/24 01:26 11/24/24 23:56 Room Air 11/24/24 21:28 Room Air 11/24/24 21:28 Room Air 11/24/24 21:27 Room Air 11/24/24 21:22 11/24/24 20:40 Room Air 11/24/24 19:12 Room Air 11/24/24 17:40 11/24/24 17:37 Room Air 11/24/24 17:37 Room Air 11/24/24 17:37 Room Air Recovery Score Activity: Moves 4 extremities Respiration: Deep Breath/Cough Circulation: +/-20% PreAnes Value Consciousness: Fully Awake Oxygen Saturation: O2 needed for >90% Discharge Sedation Level of Care: Fast Track Phase II
[2024-11-25] MEDS: HEPARIN (PORCINE) 1000 UNIT/ML 10 ML (CATH LAB USE ONLY) ONE ×2 (13:34→18:45)
[2024-11-25] MEDS: MIDAZOLAM HCL 1 MG/ML 2ML VIAL ONE ×2 (13:34→18:49)
[2024-11-25] MEDS: CLOPIDOGREL BISULFATE 300 MG TAB ONE (13:35)
[2024-11-25] MEDS: OPTIRAY 350 ONE ×2 (13:35→18:57)
--- NOTE | 2024-11-25 13:38 | Cardiac Catheterization ---
[facility] Data: Exceptional Student Education Aide Cardiac Status Clinical evaluation leading to the procedure CAD Presenation: Non STEMI Anginal Classification: CCS IV Diagnostic Physicians Name: Adonay Brown MD Closure Device Recommendations: PCI without planned CABG Cardiac Cath Procedure Full Procedure Date November 25, 2024 Pre-Procedure Diagnosis Pre-Procedure Diagnosis: Non STEMI AUC Score AUC Score: 8 Post-Procedure Diagnosis Post-Procedure Diagnosis: Severe CAD, Successful PCI and Normal Intracardiac Pressures Procedure(s) Performed Procedure(s) Performed: Coronary Angiography, Left Heart Cath, Drug Eluting Stent and IVUS Citrix Lead Adonay Brown MD Automatic Pinsetter Adjuster(s) Dragan Estimated Blood Loss Estimated Blood Loss: 25 Medication(s) Medication(s): Clopidogrel, Fentanyl, Heparin, Lidocaine 1%, Nicardipine, Nitroglycerin and Versed Summary of Findings Indication: NSTEMI Access: 6 Fr slender right radial artery Catheters: [place], EBU 3.5 guide Findings: LM -normal caliber, 20-30% distal stenosis LAD -medium caliber, 40-50% ostial stenosis, 70% latemid stenosis at takeoff of small 3rd diagonal. Remainder of vessel without significant disease and extends to apex. Medium D2 with 70-80% mid stenosis. Ramus - medium caliber, no significant disease. Circumflex -large caliber, 30-40% ostial, mid segment 90% acute stenosis with thrombus. Medium OM2 without disease. RCA -dominant, medium caliber, mid segment luminal irregularities. Large RPDA without significant disease. LVEDP -14 -- PCI -- Antithrombotic therapy: Heparin, clopidogrel Procedure: Left main cannulated with EBU 3.5 guide Pre-procedure flow ALICE 3 Veterans Services Specialist 50 wire passed across lesion into distal OM Mid circumflex lesion predilated with 2.5 compliant balloon Dilated lesion stented with 3.0 x 18 mm Antoine drug-eluting stent Stent post-dilated with 3.25 noncompliant balloon Mild residual haziness at distal aspect of stent. MEDEM IVUS catheter placed to distal circumflex. Pullback revealed well apposed, well-expanded stent with no apparent edge complications. Did have small amount of residual IntraStent thrombus. Ostial circumflex with mild to moderate eccentric plaque. No significant left main disease. Stent postdilated again with 3.5 NC balloon IC vasodilators administered for spasm Post procedure ALICE 3 flow, stent well expanded with minimal residual stenosis and no apparent cardiac complications. Arterial Closure: TR band Summary: 1. Multivessel coronary artery disease - Acute 90% mid circumflex with thrombus 40-50% ostial LAD, 70% small late-mid LAD. D2 75% mid 2. Normal intracardiac filling pressure 3. Successful PCI of mid circumflex with single drug-eluting stent (3.0 x 18 mm Antoine; postdilated with 3.5 NC) Recommendations: To PCU for continued monitoring Loaded with clopidogrel 600 mg in Exceptional Student Education Aide Continue dual-antiplatelet therapy for at least 1 year Continue statin, and ASCVD risk factor modification Plan on medical management of residual CAD. If refractory angina in the future PCI of late-mid LAD and/or diagonal could be considered. Hemodynamics Rest Ao:: 142/82 Final Ao: 131/64 LV: 146/14 Recommendations Recommendations: PCI without planned CABG Radiation Exposure (mGy) 1644 Contrast (mls) 105 Anesthesia Moderate 2098-1247 Procedural Complication(s) None Disposition PCU I attest to the content of the Intraoperative Record and any orders documented therein. Any exceptions are noted below. [facility] Card Cath Procedure Codes Cardiac Catheterization Procedure 1: Cardiovascular Cath Procedures: 64313 Coronaries and LHC (+/-LV) Therapeutic Services & Ancillary Procedure 1: Cardiovascular Tx and Anc Procedures: 99424 IV Ultrasound (Coronary or Graft) Moderate Sedation Procedure 1: Sedation/Anesthesia: 53343 Mod Sedation by the same physician;Init15 Min Child Age 5 & Up Procedure 2: Sedation/Anesthesia: 51539 Mod Sedation by the same physician; Ea [id number] Minutes Stenting Procedure 1: Cardiovascular Stent Procedures: 78678 Perc transcatheter placement of intracoronary stent(s), with ang PG Care Time/CCT Total # of Minutes Spent Total Time Spent with Patient: Total time spent is greater than 50% in coordination of care (as documented) at patient's floor/unit and/or counseling patient:
--- NOTE | 2024-11-25 16:07 | Hospitalist Progress Note ---
Date of Service November 25, 2024 Assessment & Plan (1) Non-ST elevation AK (NSTEMI): Plan: 79-year-old male with past medical history significant for prediabetes, hypertension, BPH, degenerative disc disease, lumbar radiculopathy, anxiety, history of tobacco use, history of TIA presents with bilateral shoulder and chest tightness and discomfort. Patient states around 9:30 AM and 10 AM he felt bilateral shoulder and upper chest tiredness and discomfort. He sat in a chair and it subsided. They went to town and had some grocery shopping and came back home. He was sitting on a chair to read paper around 2 PM when again noticed similar bilateral shoulder and upper chest tiredness and discomfort. He went and sat in different chair and at the time was feeling hungry he tried to eat and was drinking soup but the discomfort escalated , did not feel like eating and came to the ER. By the time he came to the ER the discomfort and tiredness subsided. Currently resting comfortably. Denies any shortness of breath. Denies any sweating. No headache. No nausea. No dizziness. No runny nose or sore throat. No cough. No fevers. No abdominal pain. Normal bowel and bladder movements. Denies any blood in the stools. No rash. Hemodynamics are okay. States when ambulating did not had chest pain or shortness of breath. Non-ST elevated AK Patient had couple of episodes of bilateral shoulder and upper chest tightness and discomfort Currently asymptomatic EKG no acute findings Initial troponin 109 and repeat is 589 troponin went up to 06/01/2008 Received aspirin, Started on IV heparin Appreciate cardiology input and recommendation for cardiac catheterization Status post cardiac cath and successful PCI of mid circumflex with single drug- eluting stent Loaded with Plavix 600 mg in the Sulfuric Acid Plant Supervisor Continue dual antiplatelet therapy for at least 1 year. Continue statin and ASCVD risk factor modification Hypertension On amlodipine and losartan Will monitor Anxiety On buspirone BPH On finasteride Degenerative disc disease We will hold diclofenac Prediabetes We will follow HbA1c levels DVT prophylaxis On IV heparin Disposition Telemetry Full code Admission and Anticipated Discharge Date Admission Date: November 24, 2024 Subjective 11/25/2024 The patient was seen and examined in telemetry unit in presence of the He was very agitated during interaction with the patient during this morning Discussed with the about the heart attack and need for cardiac catheterization No examination was done Results & Data Results & Data Vital Signs (Past 12 Hours) Vital Signs Temp Pulse Pulse Resp BP Pulse Ox O2 Del Method 11/25/24 14:45 36.6 C 62 18 148/77 H 97 Room Air 11/25/24 14:20 62 17 153/74 H 95 Room Air 11/25/24 14:04 60 17 153/77 H 95 Room Air 11/25/24 13:49 66 17 139/68 95 Room Air 11/25/24 11:50 36.6 C 69 18 123/72 96 Room Air 11/25/24 07:03 36.6 C 78 16 146/80 H 95 Room Air 11/25/24 07:00 69 Laboratory Results Short CBC 11/24/24 11/25/24 Range/Units 17:37 04:26 WBC 6.91 6.93 (4.8-10.8) K/ul Hgb 13.4 L 13.3 L (14.0-18.0) g/dl Hct 41.0 L 39.8 L (42.0-52.0) % Plt Count 216 197 (130-400) K/uL [facility] 11/24/24 11/25/24 17:37 04:26 Sodium 137 137 Potassium 4.0 3.5 Chloride 103 103 Carbon Dioxide 28 26 BUN 23 19 Creatinine 1.02 0.88 Glucose 134 H 110 H Calcium 9.4 9.2 Liver Function 11/24/24 Range/Units 17:37 Total Bilirubin 0.3 (0.2-1.0) mg/dl AST 20 (13-39) U/L ALT 13 (7-52) U/L Alkaline Phosphatase 79 (34-104) U/L Albumin 4.3 (3.4-5.0) gm/dl Medications Administered Current Inpatient Medications Acetaminophen (Acetaminophen 325 Mg Tab) 650 mg PO Q4H PRN PRN Reason: Pain or Fever Stop: 12/24/24 21:26 Last Admin: 11/25/24 15:33 Dose: 650 mg Amlodipine Besylate (Amlodipine Besylate 5 Mg Tab) 10 mg PO DAILY [facility] Stop: 12/25/24 08:59 Last Admin: 11/25/24 09:55 Dose: 10 mg Aspirin (Aspirin 81 Mg Ectab) 81 mg PO QAM [facility] Stop: 12/25/24 08:59 Last Admin: 11/25/24 09:56 Dose: 81 mg Buspirone HCl (Buspirone 5 Mg Tab) 10 mg PO BID [facility] Stop: 12/25/24 08:59 Last Admin: 11/25/24 09:56 Dose: 10 mg Clopidogrel Bisulfate (Clopidogrel Bisulfate 75 Mg Tab) 75 mg PO QAM [facility] Stop: 12/26/24 08:59 Finasteride (Finasteride 5 Mg Tab) 5 mg PO DAILY [facility] Stop: 12/25/24 08:59 Last Admin: 11/25/24 09:56 Dose: 5 mg Losartan Potassium (Losartan Potassium 25 Mg Tab) 25 mg PO BID [facility] Stop: 12/25/24 08:59 Last Admin: 11/25/24 09:56 Dose: 25 mg Metoprolol Succinate (Metoprolol Succ 25mg Ext Rel Tab) 12.5 mg PO QAM [facility] Stop: 12/25/24 08:59 Last Admin: 11/25/24 09:55 Dose: 12.5 mg Nitroglycerin (Nitroglycerin Sl 0.4 Mg/Tab Tab) 0.4 mg SL Q5M PRN PRN Reason: Chest Pain Stop: 12/24/24 21:26 Polyethylene Glycol (Polyethylene (Miralax) 17 Gm Pack) 17 gm PO DAILY PRN PRN Reason: Constipation Stop: 12/24/24 21:26
[2024-11-25] MEDS: NITROGLYCERIN SL 0.4 MG/TAB TAB SL PRN (16:49)
--- NOTE | 2024-11-25 17:37 | Communication Note ---
Date of Service: November 25, 2024 Patient seen after Circumflex stent for chest discomfort after meal. Dr Brown already at bedside when I arrived. EKG =SR without new ST segement changes. Received SL nitro x 1 and became hypotensive with SBP in the 80s, with diaphoresis. Transient junction rhythm in the 30s noted on telemetry. Received NS bolus 500 ml EKG #2 =SR , normal ST segments. SBP improved to 90s and then 128 mm Hg. Still with mild chest discomfort that has waxed and waned for approaching 1 hour. -record label internship activated with plans for expedited coronary angiography . Despite no ST elevation, symptoms of concern and patient had electrically silent IL at presentation with thrombotic occlusion of the Cx noted earlier today for which pt underwent PCI , stent. -Informed consent obtained. -Patient's spouse signed the consent for him as he is right haded and is not to bend his wrist post cardiac cath earlier today. Jocelyne Barton, DO Cardiology
--- NOTE | 2024-11-25 18:01 | Pre Anesthesia Assessment ---
Date of Service November 25, 2024 Pre Sedation Assessment Vital Signs Temp Pulse Pulse Resp BP BP Pulse Ox 11/25/24 16:45 98.1 F 65 18 126/73 95 11/25/24 14:45 97.9 F 62 18 148/77 H 97 11/25/24 14:20 62 17 153/74 H 95 11/25/24 14:04 60 17 153/77 H 95 11/25/24 13:49 66 17 139/68 95 11/25/24 11:50 98 F 69 18 123/72 96 11/25/24 07:03 97.9 F 78 16 146/80 H 95 11/25/24 07:00 69 11/25/24 03:34 98.2 F 78 16 136/72 96 11/25/24 01:26 70 11/24/24 23:56 97.5 F L 60 18 137/81 96 11/24/24 21:28 11/24/24 21:28 97.7 F 104 H 18 179/91 H 97 11/24/24 21:27 11/24/24 21:22 77 11/24/24 20:40 65 18 168/100 H 98 11/24/24 19:12 65 16 174/104 H 93 O2 Del Method O2 Del Method 11/25/24 16:45 Room Air 11/25/24 14:45 Room Air 11/25/24 14:20 Room Air 11/25/24 14:04 Room Air 11/25/24 13:49 Room Air 11/25/24 11:50 Room Air 11/25/24 07:03 Room Air 11/25/24 07:00 11/25/24 03:34 Room Air 11/25/24 01:26 11/24/24 23:56 Room Air 11/24/24 21:28 Room Air 11/24/24 21:28 Room Air 11/24/24 21:27 Room Air 11/24/24 21:22 11/24/24 20:40 Room Air 11/24/24 19:12 Room Air Cardiovascular + regular rate Respiratory + respiratory effort normal Pre-Sedation Airway Assessment Smoking Status: Former smoker Hx Sleep Apnea: No Hx Difficult Intubation: No Short, Thick Neck: No Thyromental Distance: > or= 3.5 Finger Breadths Oral Cavity: + Dentures Mallampati Class: III ASA: ASA3 NPO Status Date of Last Intake of Fluids: 11/25/24 Time of Last Intake of Fluids: 07:00 Date of Last Intake of Solid Food: 11/24/24 Time of Last Intake of Solid Foods: 20:00 Procedure Planning Contraindications for Sedation: none Current Medications Reviewed: Yes Notes The planned sedation has been discussed with the patient. Informed Consent was obtained. I have identified the patient, determined the appropriateness of sedation and have assessed the patient immediately prior to the procedure. All medicine(s) and interventions are by my order.
[2024-11-25 18:03] LABS: Anion Gap 8.0 (3-11); Blood Urea Nitrogen 16.0 mg/dl (6-23); Calcium 8.7 mg/dl (8.6-10.3); Carbon Dioxide 26.0 mmol/L (21-32); Chloride 103.0 mmol/L (98-107); Creatinine Clr Calc Pharmacy 61.0 ml/min; Glucose 121.0 mg/dl (70-99(Fasting)); Potassium 3.5 mmol/L (3.5-5.1); Sodium 137.0 mmol/L (136-145)
[2024-11-25] MEDS: EPTIFIBATIDE 2 MG/ML 10 ML VIAL (CATH LAB USE ONLY) IV ONE (18:53)
[2024-11-25] MEDS: EPTIFIBATIDE 0.75 MG/ML 75MG VIAL (CATH LAB USE ONLY) IV ONE (18:57)
--- NOTE | 2024-11-25 19:03 | Post Anesthesia Assessment ---
Date of Service November 25, 2024 Post Sedation Assessment Vital Signs Temp Pulse Pulse Resp BP BP Pulse Ox 11/25/24 16:45 98.1 F 65 18 126/73 95 11/25/24 14:45 97.9 F 62 18 148/77 H 97 11/25/24 14:20 62 17 153/74 H 95 11/25/24 14:04 60 17 153/77 H 95 11/25/24 13:49 66 17 139/68 95 11/25/24 11:50 98 F 69 18 123/72 96 11/25/24 07:03 97.9 F 78 16 146/80 H 95 11/25/24 07:00 69 11/25/24 03:34 98.2 F 78 16 136/72 96 11/25/24 01:26 70 11/24/24 23:56 97.5 F L 60 18 137/81 96 11/24/24 21:28 11/24/24 21:28 97.7 F 104 H 18 179/91 H 97 11/24/24 21:27 11/24/24 21:22 77 11/24/24 20:40 65 18 168/100 H 98 11/24/24 19:12 65 16 174/104 H 93 O2 Del Method O2 Del Method 11/25/24 16:45 Room Air 11/25/24 14:45 Room Air 11/25/24 14:20 Room Air 11/25/24 14:04 Room Air 11/25/24 13:49 Room Air 11/25/24 11:50 Room Air 11/25/24 07:03 Room Air 11/25/24 07:00 11/25/24 03:34 Room Air 11/25/24 01:26 11/24/24 23:56 Room Air 11/24/24 21:28 Room Air 11/24/24 21:28 Room Air 11/24/24 21:27 Room Air 11/24/24 21:22 11/24/24 20:40 Room Air 11/24/24 19:12 Room Air Recovery Score Activity: Moves 4 extremities Respiration: Deep Breath/Cough Circulation: +/-20% PreAnes Value Consciousness: Fully Awake Oxygen Saturation: > 92% On Room Air Post Anesthesia Score: 10 Discharge Sedation Level of Care: Fast Track Phase II
[2024-11-25] MEDS: EPTIFIBATIDE 75 MG/100 ML VIAL IV SCH (19:15)
[2024-11-25] MEDS ORDERED: EPTIFIBATIDE BOLUS/DRIP IV STA (19:19)
--- NOTE | 2024-11-25 19:19 | Cardiac Catheterization ---
[facility] Data: Seismographer Cardiac Status Clinical evaluation leading to the procedure CAD Presenation: Non STEMI Anginal Classification: CCS IV Diagnostic Physicians Name: Adonay Brown MD Closure Device Recommendations: PCI without planned CABG Cardiac Cath Procedure Full Procedure Date November 25, 2024 Pre-Procedure Diagnosis Pre-Procedure Diagnosis: Non STEMI AUC Score AUC Score: 8 Post-Procedure Diagnosis Post-Procedure Diagnosis: Severe CAD and Normal Intracardiac Pressures Procedure(s) Performed Procedure(s) Performed: Coronary Angiography, Left Heart Cath and IVUS Optical Manufacturing Technician Adonay Brown MD Certified Wellness Program Coordinator(s) Ayaan Estimated Blood Loss Estimated Blood Loss: 15 Medication(s) Medication(s): Clopidogrel, Fentanyl, Heparin, Integrilin, Lidocaine 1%, Nicardipine and Versed Summary of Findings Indication: Recurrent chest pain. Presented with NSTEMI initially and is post PCI to acute, thrombotic circumflex lesion earlier today. Brought back to the Seismographer in the setting of recurrent chest pain, stable ECG. Access: 6 Fr slender left radial artery. Proximal radial artery diffusely diseased, tortuous and unable to pass wire. Decision to proceed via femoral artery. Right HISTOLOGY TEACHER access under ultrasound guidance with micropuncture Catheters: Diagnostic JL 3.5, EBU 3.5 guide, pigtail Findings: LM -normal caliber, 20-30% distal stenosis LAD -medium caliber, 40-50% ostial stenosis, 70% latemid stenosis at takeoff of small 3rd diagonal. Remainder of vessel without significant disease and extends to apex. Medium D2 with 70-80% mid stenosis. Ramus - medium caliber, no significant disease. Circumflex -large caliber, 30-40% ostial, stent patent with ALICE-3 flow with increased haziness consistent with thrombus in mid to distal aspect of stent. Distal OM widely patent with ALICE-3 flow. RCA -not revisualize. Previously widely patent without significant disease. LVEDP -18 IVUS of circumflex Left main cannulated with EBU 3.5 guide Financial Reporting Accountant 50 wire navigated into distal OM Night Up IVUS catheter placed across stent into distal circumflex Pullback revealed nonocclusive, mild thrombus burden in distal to mid aspect of stent. Proximal stent with no thrombus. No apparent proximal or distal edge complications. Proximal circumflex without significant disease. Postprocedure angiography revealed no complications. With mild thrombus burden, ALICE-3 flow, minimal symptoms decision made to avoid further intervention and treat medically. Started on Integrilin infusion and received IC bolus Integrilin. Arterial Closure: TR band to left radial artery. Angio-Seal to right HISTOLOGY TEACHER Summary: 1. Mild, nonobstructive intra-stent thrombus increased from post PCI earlier today. ALICE-3 flow through circumflex No apparent dissection or stent complications on IVUS 2. Unchanged LAD disease (40-50% ostial LAD, 70% small late-mid LAD. D2 75% mid). 3. Borderline LV filling pressures (LVEDP 18). Recommendations: Return to PCU for continued monitoring Continue Integrilin infusion overnight Continue DAPT with Clopidogrel. Continue statin, and ASCVD risk factor modification Hemodynamics Rest Ao:: 151/80/106 Final Ao: 166/45/22 LV: 163/18 Recommendations Recommendations: PCI without planned CABG Radiation Exposure (mGy) 741 Contrast (mls) 60 Anesthesia Moderate 4040-4169 Procedural Complication(s) None Disposition PCU I attest to the content of the Intraoperative Record and any orders documented therein. Any exceptions are noted below. [facility] Card Cath Procedure Codes Cardiac Catheterization Procedure 1: Cardiovascular Cath Procedures: 77015 Coronaries and LHC (+/-LV) Therapeutic Services & Ancillary Procedure 1: Cardiovascular Tx and Anc Procedures: 98303 IV Ultrasound (Coronary or Graft) Procedure 2: Cardiovascular Tx and Anc Procedures: 36891 Ultrasonic Guidance Vascular Access Moderate Sedation Procedure 1: Sedation/Anesthesia: 71708 Mod Sedation by the same physician;Init15 Min Child Age 5 & Up Procedure 2: Sedation/Anesthesia: 24038 Mod Sedation by the same physician; Ea [id number] Minutes PG Care Time/CCT Total # of Minutes Spent Total Time Spent with Patient: Total time spent is greater than 50% in coordination of care (as documented) at patient's floor/unit and/or counseling patient:
[2024-11-25] MEDS: ATROPINE SULFATE 0.1 MG/ML 10ML SYR IV ONE (21:38)
[2024-11-25] MEDS: SODIUM CHLORIDE 0.9% 500 ML IV ONE (21:38)
--- NOTE | 2024-11-25 23:05 | Electrocardiogram Report ---
Test Reason : Blood Pressure : */* mmHG Vent. Rate : 69 BPM Atrial Rate : 69 BPM P-R Int : 190 ms QRS Dur : 90 ms QT Int : 382 ms P-R-T Axes : 59 49 54 degrees QTcB Int : 409 ms Normal sinus rhythm Normal ECG When compared with ECG of 24-Nov-2024 17:32, Questionable change in QRS axis T wave inversion no longer evident in Inferior leads Confirmed by Al Garcia ([id number]) on 11/25/2024 11:05:34 PM Referred By: REFERRED SELF Confirmed By: Al Garcia
--- NOTE | 2024-11-25 23:05 | Electrocardiogram Report ---
Test Reason : Blood Pressure : */* mmHG Vent. Rate : 69 BPM Atrial Rate : 69 BPM P-R Int : 186 ms QRS Dur : 88 ms QT Int : 378 ms P-R-T Axes : -16 -9 -14 degrees QTcB Int : 405 ms Normal sinus rhythm Normal ECG When compared with ECG of 09-Aug-2020 15:25, Vent. rate has decreased by 34 bpm Confirmed by Al Garcia ([id number]) on 11/25/2024 11:05:12 PM Referred By: REFERRED SELF Confirmed By: Al Garcia
[2024-11-26] MEDS: POLYETHYLENE (MIRALAX) 17 GM PACK PO PRN (04:57)
[2024-11-26 06:33] LABS: Hematocrit (blood only) 39.8 % (42.0-52.0); Hemoglobin 13.3 g/dl (14.0-18.0); Immature Granulocytes # (auto) 0.03 K/uL (0.01-0.20); Immature Granulocytes % (auto) 0.4 %; Mean Corpuscular Hemoglobin 30.6 pg (25.0-34.0); Mean Corpuscular Volume 91.5 fL (80.0-100.0); Platelet Count 221 K/uL (130-400); RDW Standard Deviation 47.8 fL (36.4-46.3); Red Blood Count 4.35 M/uL (4.70-6.10); White Blood Count 8.12 K/ul (4.8-10.8)
[2024-11-26 07:06] LABS: Anion Gap 11.0 (3-11); Blood Urea Nitrogen 20.0 mg/dl (6-23); Calcium 9.2 mg/dl (8.6-10.3); Carbon Dioxide 23.0 mmol/L (21-32); Chloride 104.0 mmol/L (98-107); Creatinine Clr Calc Pharmacy 48.7 ml/min; Glucose 98.0 mg/dl (70-99(Fasting)); Magnesium 1.9 mg/dl (1.7-2.4); Potassium 3.5 mmol/L (3.5-5.1); Sodium 138.0 mmol/L (136-145)
--- NOTE | 2024-11-26 07:15 | Communication Note ---
Date of Service: November 26, 2024 No chest pain, or presenting arm/neck pain overnight. Denies dyspnea. Major concern is not being allowed to get up an go to bathroom. No issues on tele. Hstrop 3500 this morning. Did have reported hematuria overnight. H/H stable this morning. Urology consulted overnight. LT RA artery access site 2+, does have ecchymosis but no hematoma and is neurovascularly intact. RT FINANCIAL SUPERVISOR and RT Radial access sites look good. --- No plans for additional catheterization/intervention unless significant change in course. --- Will stop Integrilin infusion this morning. --- Ticagrelor was considered but at this time do not think this was clopidogrel failure. With hematuria will continue on DAPT with clopidogrel and aspirin uninterrupted.
[2024-11-26] MEDS ORDERED: TICAGRELOR 90 MG TAB PO ONE (08:00)
[2024-11-26] MEDS: CLOPIDOGREL BISULFATE 75 MG TAB PO SCH (08:49)
[2024-11-26] MEDS ORDERED: CLOPIDOGREL BISULFATE 75 MG TAB PO SCH (09:00)
--- NOTE | 2024-11-26 10:20 | Urology Consultation ---
Date of Consultation November 26, 2024 Assessment & Plan (1) Gross hematuria: Plan Painless gross hematuria in the setting of new anticoagulation/antiplatelet therapy after cardiac intervention Hgb, Cr stable Reviewing cardiac notes and discussing his care with the patient, there is no additional intervention planned right now Integrilin and Brilinta have been stopped On Plavix Has been voiding adequately despite the hematuria We discussed different options I would like to perform the remainder of his workup as an outpatient I do think he warrants upper tract imaging as well as a cystoscopy in the office, however these are certainly outpatient procedures and some level of hematuria due to his medications, his age, his enlarged prostate would all be considered relatively normal. I did discuss indications that would necessitate a return to the hospital and more acute evaluation or intervention. He and his are very understanding. Safe for discharge home from a standpoint History of Present Illness Attending Physician: Eh Coughlin MD History of Present Illness 79-year-old gentleman admitted with an acute cardiac issue and underwent catheterization x 2 Temporarily placed on a heparin IV/Integrilin as well as Brilinta now transition to Plavix After beginning anticoagulation/antiplatelet therapy developed some hematuria He reports that he has been voiding adequately Only difficulty had with urination was associated with an episode of constipation and resolved this morning after moving his bowels He denies any dysuria Simple painless gross hematuria after the medication changes He has had numerous UAs in our system dating back several years, he had microscopic blood throughout this time He has also been on finasteride for BPH related symptoms Never gross hematuria in the past No flank pain No kidney stones No prior infections Subjectively reports that he feels much better this morning than he did yesterday and he is extremely anxious to go home Allergies Allergy/AdvReac Type Severity Reaction Status Date / Time No Known Allergies Allergy Verified 11/25/24 11:53 Home Medications Medication Instructions Recorded Confirmed Type amlodipine 10 mg tablet 10 mg PO DAILY 11/24/24 11/24/24 History buspirone 10 mg tablet 10 mg PO BID 11/24/24 11/24/24 History diclofenac sodium 75 mg 75 mg PO BID 11/24/24 11/24/24 History tablet,delayed release finasteride 5 mg tablet 5 mg PO DAILY 11/24/24 11/24/24 History losartan 25 mg tablet 25 mg PO BID 11/24/24 11/24/24 History tramadol 50 mg tablet 50 mg PO Q6H PRN Severe Pain 11/24/24 11/24/24 History (Scale Score 7-10) Patient History Medical History Osteoarthritis History of kidney stones Stress Taking Buspirone Stroke 08/2019, advised by neuro to f/u PRN per 11/2019 visit No residual issues/no issues since Carotid stenosis, bilateral Surgical History History of total right knee replacement (TKR) History of arthroscopy Right knee Hx of vasectomy History of colonoscopy History of tooth extraction History of tonsillectomy History of total left hip arthroplasty Family History Mother Lung cancer Father Stroke Social History Smoking Status: Former smoker Tobacco Type: Cigarettes Second Hand Exposure: No; Do You Dip or Chew Tobacco: No; Hx Alcohol Use: Yes Alcohol type: wine Alcohol Intake Frequency Comment: once a month Hx Substance Use: No Preferred Language: Kazakh Communication Ability: Effective Visual Impairment: Limited Hearing Ability: Normal [employer] Telephone Clerk Required: No Beliefs That Will Affect Care: None marital status: Current Living Situation: Spouse current occupational status: retired Feels Safe at Home: Yes Assistive Devices: Cane and Walker Review of Systems Review of Systems: All systems reviewed & are unremarkable except as noted in HPI & below Physical Exam Physical Exam: bruising at b/l wrists and groin bladder is not palpably distended nor tender no CVA tenderness Constitutional: well developed and well nourished Respiratory: no respiratory distress Cardiovascular: Extremities: no pedal edema Gastrointestinal (Abdomen): Inspection/Auscultation: abdomen normal to inspection Results & Data Vital Signs (Past 12 Hours) Vital Signs Temp Pulse Pulse Resp BP BP Pulse Ox 11/26/24 07:41 11/26/24 07:20 36.3 C L 95 H 23 158/84 H 94 11/26/24 04:06 36.8 C 77 16 146/88 H 97 11/26/24 01:37 84 18 139/85 95 11/26/24 01:03 61 11/25/24 23:28 36.5 C 66 17 171/85 H 96 11/25/24 22:58 O2 Del Method 11/26/24 07:41 Room Air 11/26/24 07:20 Room Air 11/26/24 04:06 Room Air 11/26/24 01:37 Room Air 11/26/24 01:03 11/25/24 23:28 Room Air 11/25/24 22:58 Room Air PG Care Time/CCT Total # of Minutes Spent Total Time Spent with Patient: Total time spent is greater than 50% in coordination of care (as documented) at patient's floor/unit and/or counseling patient: Coding Level of Care Code 01511 IN/OBS CONSULT LVL 4,60M Diagnoses Gross hematuria R31.0
--- NOTE | 2024-11-26 10:21 | Cardiology Progress Note ---
Date of Service November 26, 2024 Assessment & Plan (1) Non-ST elevation [place] (NSTEMI): (2) CAD (coronary artery disease): (3) S/P coronary artery stent placement: (4) Hypertension: Plan 79 year old male with past medical history of HTN, who presented to ED with chest pain, radiating to both shoulders and arms. Troponin elevated on arrival and quyen significantly. EKG without acute ischemic changes. Concern for NSTEMI. Underwent cardiac catheterization 11/25 which showed multivessel CAD, acute 9% mid circumflex with thrombus, 40-50% ostial LAD, 70% small late-mid LAD. D2 75% mid. Underwent successful PCI of mid circumflex with single drug-eluting stent (3.0 x 18 mm [employer]; postdilated with 3.5 NC) by Dr. Brown. 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 - feeling well on exam today - Integrilin has been stopped, continue aspirin 81 mg daily and plavix 75 mg daily uninterrupted - continue amlodipine, losartan, metoprolol succinate - start atorvastatin 40 mg daily - continue to monitor on telemetry - follow up with outpatient cardiology clinic Case discussed with attending physician, further recommendations per Dr. Barton. I spent a total of 35 minutes on the date of service in preparation, delivery, and documentation of the care provided to this patient excluding any time spent in the performance of separately billed services. This visit was a split-shared visit with the substantial portion of the decision making performed by the supervising sharepoint engineer/billing provider. Maria C Graff PA-C [facility] Cardiology Admission and Anticipated Discharge Date Admission Date: November 24, 2024 Supervising Physician Co-Signing Physician Notes Attending attestation: Case reviewed with the advanced practitioner. I have personally performed a history and physical examination on the patient. I have reviewed the advanced practitioner's documentation on the date of service referenced in note, and I agree with, and take responsibility for the plan of care. Subjective: Denies chest discomfort. Telemetry reveals sinus rhythm in the 60s overnight Exam: Cardiovascular regular rhythm, no murmur Mild ecchymosis at both radial artery sites, right femoral artery cath exit site clean dry and intact, no hematoma Data: EKG this morning 11/26/2024 at 4:50 AM and interpreted independently: Sinus rhythm at 81 bpm, normal EKG. Impression/ Plan: Circumflex territory non-STEMI, with nonobstructive intra stent thrombus. * Completed 12 hours of Integrilin infusion * Continue ASA 81 mg (lifelong therapy) * Continue clopidogrel (Plavix) 75 mg daily x 1 year and reassess * metoprolol, amlodipine, losartan, atorvastatin * Remain in hospital on telemetry. I spent a total of 20 minutes coordinating, documenting, and providing care for this patient excluding time spent in the performance of separately billed services or time spent by another provider. Nick Barton, DO Subjective Patient seen today in cardiology follow up. Yesterday had cardiac catheterization with intrastent thrombus, ALICE-3 flow, medical management recommended and was started on Integrilin infusion. Patient evaluated by Dr. Brown this morning and Integrilin infusion stop, recommends aspirin and plavix. Patient today states he had a rough night, was not allowed out of bed. Is feeling better this morning, at bedside. He denies chest pain, palpitations, shortness of breath, lightheadedness. Notes hematuria, hemoglobin stable. He is eager to go home. Review of Systems Review of Systems: CONSTITUTIONAL: No change in weight, No weakness, No fatigue and No fevers, No sweats or chills. PULMONARY: No cough, sputum, or hemoptysis, No wheezing, No shortness of breath and No recent change in breathing. CARDIOVASCULAR: No chest pain, No dyspnea on exertion, No edema, No palpitations and No syncope. GASTROINTESTINAL: No abdominal pain, No change in bowel habits, No significant heartburn, No nausea, No vomiting, No diarrhea, No constipation, No blood in stools or black tarry stools. No dysphagia. HEMATOLOGIC: No abnormal bleeding and No bruising. NEUROLOGICAL: Normal balance, No headaches and No weakness. Physical Exam Physical Exam: General: No acute distress. A+Ox3. HEENT: Normocephalic. Atraumatic. PERRL. EOMI. Conjunctiva and sclera clear. NECK: No carotid bruits. No JVD. Carotid upstrokes are brisk. Heart: RRR. S1 and S2 noted. No murmur. No rubs or gallops. PMI non displaced. Lungs: Clear to auscultation. No wheezes. No rhonchi. No rales. Abdomen: Normal bowel sounds. Soft. Nontender. No masses or organomegaly. No abdominal bruits. Extremities: No edema. No clubbing or cyanosis. Right radial artery access site and right groin site with no hematoma, bleeding, erythema. Left radial artery access site with ecchymosis, no hematoma. Pulses: radial=2/4, posterior tibial=2/4, dorsalis pedis = 2/4. NEURO: No focal deficits. PSYCH: Appropriate affect and insight. Results & Data Vital Signs (Past 12 Hours) Vital Signs Temp Pulse Pulse Resp BP BP Pulse Ox 11/26/24 07:41 11/26/24 07:20 36.3 C L 95 H 23 158/84 H 94 11/26/24 04:06 36.8 C 77 16 146/88 H 97 11/26/24 01:37 84 18 139/85 95 11/26/24 01:03 61 11/25/24 23:28 36.5 C 66 17 171/85 H 96 11/25/24 22:58 O2 Del Method 11/26/24 07:41 Room Air 11/26/24 07:20 Room Air 11/26/24 04:06 Room Air 11/26/24 01:37 Room Air 11/26/24 01:03 11/25/24 23:28 Room Air 11/25/24 22:58 Room Air Laboratory Results Cardiac Enzymes 11/25/24 11/25/24 11/25/24 Range/Units 11:12 17:22 22:25 Troponin I High Sens 2940.4 H* 2165.5 H* D 3223.0 H* D (0-20) pg/ml 11/26/24 Range/Units 05:09 Troponin I High Sens 3527.8 H* (0-20) pg/ml Lipids 11/25/24 Range/Units 04:26 Triglycerides 68 (0-150) mg/dl Cholesterol 142 (0-200) mg/dl HDL Cholesterol 47 mg/dl Cholesterol/HDL Ratio 3.0 (0-5) CBC 11/26/24 Range/Units 05:09 WBC 8.12 (4.8-10.8) K/ul RBC 4.35 L (4.70-6.10) M/uL Hgb 13.3 L (14.0-18.0) g/dl Hct 39.8 L (42.0-52.0) % Plt Count 221 (130-400) K/uL Neut # (Auto) 5.93 (1.40-6.50) K/uL Lymph # (Auto) 1.28 (1.20-3.40) K/uL Mcleod # (Auto) 0.80 H (0.11-0.59) K/uL Eos # (Auto) 0.06 (0.00-0.50) K/uL Baso # (Auto) 0.02 (0.00-0.20) K/uL Comprehensive Metabolic Panel 11/25/24 11/26/24 Range/Units 17:22 05:09 Sodium 137 138 (136-145) mmol/L Potassium 3.5 3.5 (3.5-5.1) mmol/L Chloride 103 104 (98-107) mmol/L Carbon Dioxide 26 23 (21-32) mmol/L BUN 16 20 (6-23) mg/dl Creatinine 0.95 1.19 (0.6-1.4) mg/dl Glucose 121 H 98 (70-99(Fasting)) mg/dl Calcium 8.7 9.2 (8.6-10.3) mg/dl Intake and Output 11/25/24 11/26/24 11/26/24 22:59 06:59 14:59 Intake Total 141.167 / 247.500 Output Total 400 / 1200 800 / 1200 Balance -400 / -952.500 -658.833 / -952.500 Intake: IV 141.167 / 247.500 Eptifibatide 75 mg In 100 ml @ 141.167 / 141.167 2 MCG/KG/MIN 12.112 mls/hr IV . Q8H16M [facility] Rx#:[id number] Output: Urine 400 / 1200 800 / 1200 Other: Weight 75.5 kg Weight Measurement Method Built in [facility] Diagnostic Findings Echocardiogram 11/25/24: Normal left ventricular wall motion and LVEF in the range of 55-60. Grade 1 diastolic dysfunction. No significant valvular disease. Coding [place] [address] SUB INP/OBS CARE 3/50MIN Patient Type Established History Detailed Exam Detailed Medical Decision Making High Complexity Diagnoses Non-ST elevation [place] (NSTEMI) I21.4 Coronary artery disease involving [place] coronary artery of [place] heart without angina pectoris I25.10 Associated angina: without angina Coronary Disease-Associated Artery/Lesion type: [place] artery [place] vs. transplanted heart: [place] heart S/P coronary artery stent placement Z95.5 Hypertension, unspecified type I10 Hypertension type: unspecified Time Spent (min) 55 Comment 35 minutes spend by Andrew Graff PA-C, [address] Barton (2) CAD (coronary artery disease) Associated angina: without angina Coronary Disease-Associated Artery/Lesion type: [place] artery [place] vs. transplanted heart: [place] heart Qualified Code(s): I25.10 - Atherosclerotic heart disease of [place] coronary artery without angina pectoris (4) Hypertension Hypertension type: unspecified Qualified Code(s): I10 - Essential (primary) hypertension
--- NOTE | 2024-11-26 12:13 | Electrocardiogram Report ---
Test Reason : Blood Pressure : */* mmHG Vent. Rate : 57 BPM Atrial Rate : 57 BPM P-R Int : 184 ms QRS Dur : 90 ms QT Int : 462 ms P-R-T Axes : 41 40 80 degrees QTcB Int : 449 ms Sinus bradycardia Otherwise normal ECG When compared with ECG of 25-Nov-2024 16:41, (unconfirmed) No significant change was found Confirmed by Adonay Han ([id number]) on 11/26/2024 12:12:41 PM Referred By: REFERRED SELF Confirmed By: Adonay Han
--- NOTE | 2024-11-26 12:14 | Electrocardiogram Report ---
Test Reason : Blood Pressure : */* mmHG Vent. Rate : 81 BPM Atrial Rate : 81 BPM P-R Int : 176 ms QRS Dur : 92 ms QT Int : 378 ms P-R-T Axes : 61 62 71 degrees QTcB Int : 439 ms Normal sinus rhythm Possible Left atrial enlargement Borderline ECG When compared with ECG of 25-Nov-2024 17:02, (unconfirmed) No significant change was found Confirmed by Adonay Han ([id number]) on 11/26/2024 12:14:03 PM Referred By: REFERRED SELF Confirmed By: Adonay Han
--- NOTE | 2024-11-26 12:15 | Electrocardiogram Report ---
Test Reason : Blood Pressure : */* mmHG Vent. Rate : 58 BPM Atrial Rate : 58 BPM P-R Int : 186 ms QRS Dur : 86 ms QT Int : 422 ms P-R-T Axes : 44 34 64 degrees QTcB Int : 414 ms Sinus bradycardia Otherwise normal ECG When compared with ECG of 25-Nov-2024 06:10, (unconfirmed) No significant change was found Confirmed by Adonay Han ([id number]) on 11/26/2024 12:15:11 PM Referred By: REFERRED SELF Confirmed By: Adonay Han
--- NOTE | 2024-11-26 12:16 | Electrocardiogram Report ---
Test Reason : Blood Pressure : */* mmHG Vent. Rate : 76 BPM Atrial Rate : 76 BPM P-R Int : 184 ms QRS Dur : 90 ms QT Int : 386 ms P-R-T Axes : 58 59 75 degrees QTcB Int : 434 ms Normal sinus rhythm Normal ECG When compared with ECG of 24-Nov-2024 21:25, No significant change was found Confirmed by Adonay Han ([id number]) on 11/26/2024 12:16:12 PM Referred By: REFERRED SELF Confirmed By: Adonay Han
--- NOTE | 2024-11-26 14:58 | Hospitalist Progress Note ---
Date of Service November 26, 2024 Assessment & Plan (1) Non-ST elevation [place] (NSTEMI): Plan: 79-year-old male with past medical history significant for prediabetes, hypertension, BPH, degenerative disc disease, lumbar radiculopathy, anxiety, history of tobacco use, history of TIA presents with bilateral shoulder and chest tightness and discomfort. Patient states around 9:30 AM and 10 AM he felt bilateral shoulder and upper chest tiredness and discomfort. He sat in a chair and it subsided. They went to town and had some grocery shopping and came back home. He was sitting on a chair to read paper around 2 PM when again noticed similar bilateral shoulder and upper chest tiredness and discomfort. He went and sat in different chair and at the time was feeling hungry he tried to eat and was drinking soup but the discomfort escalated , did not feel like eating and came to the ER. By the time he came to the ER the discomfort and tiredness subsided. Currently resting comfortably. Denies any shortness of breath. Denies any sweating. No headache. No nausea. No dizziness. No runny nose or sore throat. No cough. No fevers. No abdominal pain. Normal bowel and bladder movements. Denies any blood in the stools. No rash. Hemodynamics are okay. States when ambulating did not had chest pain or shortness of breath. 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 Continue statin and ASCVD risk factor modification Required second cardiac catheterization on the same day due to chest discomfort after meal and showed nonobstructive IntraStent thrombus and no further procedure required Has had hematuria and Integrilin infusion has been stopped and continues with aspirin and Plavix Remains stable this morning with minimal agitation but otherwise hemodynamically stable Hematuria Likely secondary to anticoagulation with aspirin and Integrilin Integrilin has been changed to Plavix Appreciate urology input recommendation hematuria seems to be improving Hypertension On amlodipine and losartan Will monitor Anxiety On buspirone BPH On finasteride Degenerative disc disease We will hold diclofenac Prediabetes We will follow HbA1c levels DVT prophylaxis On IV heparin Disposition Telemetry Full code Admission and Anticipated Discharge Date Admission Date: November 24, 2024 Subjective 11/25/2024 The patient was seen and examined in telemetry unit in presence of the He was very agitated during interaction with the patient during this morning Discussed with the about the heart attack and need for cardiac catheterization No examination was done 11/26/2024 The patient was seen and examined in telemetry unit in presence of the He remains agitated but has calmed down compared with yesterday Has had hematuria seems to be clearing up Denies any chest pain and/or palpitation Review of Systems Review of Systems: All systems reviewed and are unremarkable except as noted below Physical Exam Physical Exam: Lying in bed without any acute distress Constitutional: well developed, well nourished and + ill appearing Eyes: PERRL, conjunctivae normal, anicteric sclerae ENMT: external ear and nose normal, oropharynx normal Neck: trachea midline, no thyromegaly Respiratory: no respiratory distress Auscultation: lungs clear to auscultation bilaterally Cardiovascular: Rate/Rhythm: regular rate and regular rhythm; not tachycardic Heart Sounds: normal S1 and normal S2; no murmur Extremities: no edema Gastrointestinal (Abdomen): Inspection/Auscultation: abdomen not distended Percussion/Palpation: abdomen soft; abdomen nontender Musculoskeletal: No acute arthritis involving any of the joint Neurologic: normal touch/pain/proprioception and moves all extremities; no focal motor deficits Psychiatric: Mood: + anxious mood and + irritable mood Lymphatic: no cervical or axillary lymphadenopathy Results & Data Results & Data Vital Signs (Past 12 Hours) Vital Signs Temp Pulse Resp BP BP Pulse Ox O2 Del Method 11/26/24 12:19 36.8 C 76 21 139/84 91 Room Air 11/26/24 07:41 Room Air 11/26/24 07:20 36.3 C L 95 H 23 158/84 H 94 Room Air 11/26/24 04:06 36.8 C 77 16 146/88 H 97 Room Air Laboratory Results Short CBC 11/26/24 Range/Units 05:09 WBC 8.12 (4.8-10.8) K/ul Hgb 13.3 L (14.0-18.0) g/dl Hct 39.8 L (42.0-52.0) % Plt Count 221 (130-400) K/uL BMP 11/25/24 11/26/24 17:22 05:09 Sodium 137 138 Potassium 3.5 3.5 Chloride 103 104 Carbon Dioxide 26 23 BUN 16 20 Creatinine 0.95 1.19 Glucose 121 H 98 Calcium 8.7 9.2 Medications Administered Current Inpatient Medications Acetaminophen (Acetaminophen 325 Mg Tab) 650 mg PO Q4H PRN PRN Reason: Pain or Fever Stop: 12/24/24 21:26 Last Admin: 11/26/24 08:48 Dose: 650 mg Amlodipine Besylate (Amlodipine Besylate 5 Mg Tab) 10 mg PO DAILY JAYLEN Stop: 12/25/24 08:59 Last Admin: 11/26/24 08:50 Dose: 10 mg Aspirin (Aspirin 81 Mg Ectab) 81 mg PO QAM JAYLEN Stop: 12/25/24 08:59 Last Admin: 11/26/24 08:50 Dose: 81 mg Atorvastatin Calcium (Atorvastatin 40 Mg Tab) 40 mg PO QPM JAYLEN Stop: 12/26/24 20:59 Buspirone HCl (Buspirone 5 Mg Tab) 10 mg PO BID JAYLEN Stop: 12/25/24 08:59 Last Admin: 11/26/24 08:49 Dose: 10 mg Clopidogrel Bisulfate (Clopidogrel Bisulfate 75 Mg Tab) 75 mg PO QAM JAYLEN Stop: 12/26/24 07:04 Last Admin: 11/26/24 08:49 Dose: 75 mg Finasteride (Finasteride 5 Mg Tab) 5 mg PO DAILY JAYLEN Stop: 12/25/24 08:59 Last Admin: 11/26/24 08:50 Dose: 5 mg Losartan Potassium (Losartan Potassium 25 Mg Tab) 25 mg PO BID JAYLEN Stop: 12/25/24 08:59 Last Admin: 11/26/24 08:49 Dose: 25 mg Metoprolol Succinate (Metoprolol Succ 25mg Ext Rel Tab) 12.5 mg PO QAM JAYLEN Stop: 12/25/24 08:59 Last Admin: 11/26/24 08:52 Dose: 12.5 mg Nitroglycerin (Nitroglycerin Sl 0.4 Mg/Tab Tab) 0.4 mg SL Q5M PRN PRN Reason: Chest Pain Stop: 12/24/24 21:26 Last Admin: 11/25/24 16:49 Dose: 0.4 mg Polyethylene Glycol (Polyethylene (Miralax) 17 Gm Pack) 17 gm PO DAILY PRN PRN Reason: Constipation Stop: 12/24/24 21:26 Last Admin: 11/26/24 04:57 Dose: 17 gm
[2024-11-26] MEDS: ATORVASTATIN 40 MG TAB PO SCH (20:32)
[2024-11-26] MEDS ORDERED: TICAGRELOR 90 MG TAB PO SCH (21:00)
[2024-11-27 06:19] LABS: Hematocrit (blood only) 39.1 % (42.0-52.0); Hemoglobin 12.7 g/dl (14.0-18.0); Immature Granulocytes # (auto) 0.05 K/uL (0.01-0.20); Immature Granulocytes % (auto) 0.6 %; Mean Corpuscular Hemoglobin 30.2 pg (25.0-34.0); Mean Corpuscular Volume 93.1 fL (80.0-100.0); Platelet Count 190 K/uL (130-400); RDW Standard Deviation 48.5 fL (36.4-46.3); Red Blood Count 4.20 M/uL (4.70-6.10); White Blood Count 7.99 K/ul (4.8-10.8)
[2024-11-27 06:55] LABS: Alanine Aminotransferase 23.0 U/L (7-52); Albumin Globulin Ratio 1.8 (0.9-2); Alkaline Phosphatase 73.0 U/L (34-104); Anion Gap 10.0 (3-11); Bilirubin,Total 0.5 mg/dl (0.2-1.0); Blood Urea Nitrogen 20.0 mg/dl (6-23); Calcium 9.3 mg/dl (8.6-10.3); Carbon Dioxide 24.0 mmol/L (21-32); Chloride 104.0 mmol/L (98-107); Creatinine Clr Calc Pharmacy 57.4 ml/min; Globulin 2.4 gm/dl (2.5-4.0); Glucose 103.0 mg/dl (70-99(Fasting)); Magnesium 1.9 mg/dl (1.7-2.4); Potassium 3.9 mmol/L (3.5-5.1); Sodium 138.0 mmol/L (136-145); Total Protein 6.6 gm/dl (6.0-8.3)
[2024-11-27 07:06] VITALS: O2SAT 96
--- NOTE | 2024-11-27 08:26 | Cardiology Progress Note ---
Date of Service November 27, 2024 Assessment & Plan (1) Non-ST elevation IA (NSTEMI): (2) CAD (coronary artery disease): (3) S/P coronary artery stent placement: (4) Hypertension: (5) Gross hematuria: Plan 79 year old male with past medical history of HTN, who presented to ED with chest pain, radiating to both shoulders and arms. Troponin elevated on arrival and quyen significantly. EKG without acute ischemic changes. Concern for NSTEMI. Underwent cardiac catheterization 11/25 which showed multivessel CAD, acute 90% mid circumflex with thrombus, 40-50% ostial LAD, 70% small late-mid LAD. D2 75% mid. Underwent successful PCI of mid circumflex with single drug-eluting stent (3.0 x 18 mm Antoine; postdilated with 3.5 NC) by Dr. Brown. After returning to floor, developed chest discomfort after meal, returned to slab polisher with catheterization showing unchanged LAD disease, but mild, nonobstructive intra- stent thrombus with ALICE-3 flow through circumflex, no further intervention, recommended to treat medically. - Integrilin has been stopped am of 11/26/24, continue aspirin 81 mg daily and plavix 75 mg daily uninterrupted - continue amlodipine, losartan, metoprolol succinate - started atorvastatin 40 mg daily this admission - Urology input noted and appreciated. Hematuria resolved. Hgb stable. Further work up as an outpatient. -Pt stable for discharge from cardiology standpoint. - follow up with outpatient cardiology clinic I spent a total of 30 minutes coordinating, documenting, and providing care for this patient excluding time spent in the performance of separately billed services or time spent by another provider. DO Coy Byrd Cardiology Admission and Anticipated Discharge Date Admission Date: November 24, 2024 Subjective Patient seen in cardiology follow up. Feels well without angina, but had another restless night otherwise. State hematuria cleared by early in the afternoon yesterday after the Integrilin was discontinued. Telemetry reveals SR in the 60s to 70s. Review of Systems Review of Systems: All systems reviewed & are unremarkable except as noted in HPI & below Psychiatric: anxious Physical Exam Physical Exam: General: no acute distress and stated age Eyes: conjunctiva are pink and non-injected, sclera clear Neck: normal jugular venous pulse, no hepatojugular reflux Chest: normal shape and normal respiratory effort Lungs: clear to auscultation and percussion Cardiac Exam: - regular heart sounds, no murmurs, rubs, or gallops, no jugular venous distention Abdomen: abdomen soft, non-tender, no abnormal masses and no hepatosplenomegaly Extremities: no edema and no cyanosis bilateral radial sites with mild bruising, right femoral artery side without hematoma Neuro:awake, conversant, follows commands, no focal motor deficits Psych: appropriate affect and insight. Results & Data Vital Signs (Past 12 Hours) Vital Signs Temp Pulse Pulse Resp BP Pulse Ox O2 Del Method 11/27/24 07:05 36.9 C 74 21 143/80 H 96 Room Air 11/27/24 06:00 67 11/27/24 00:27 37.0 C 76 17 143/72 H 95 Room Air 11/26/24 21:45 65 Laboratory Results Cardiac Enzymes 11/26/24 11/27/24 Range/Units 11:12 04:50 AST 35 (13-39) U/L Troponin I High Sens 3276.0 H* (0-20) pg/ml CBC 11/27/24 Range/Units 04:50 WBC 7.99 (4.8-10.8) K/ul RBC 4.20 L (4.70-6.10) M/uL Hgb 12.7 L (14.0-18.0) g/dl Hct 39.1 L (42.0-52.0) % Plt Count 190 (130-400) K/uL Neut # (Auto) 5.43 (1.40-6.50) K/uL Lymph # (Auto) 1.41 (1.20-3.40) K/uL Mclennan # (Auto) 0.95 H (0.11-0.59) K/uL Eos # (Auto) 0.12 (0.00-0.50) K/uL Baso # (Auto) 0.03 (0.00-0.20) K/uL Comprehensive Metabolic Panel 11/27/24 Range/Units 04:50 Sodium 138 (136-145) mmol/L Potassium 3.9 (3.5-5.1) mmol/L Chloride 104 (98-107) mmol/L Carbon Dioxide 24 (21-32) mmol/L BUN 20 (6-23) mg/dl Creatinine 1.01 (0.6-1.4) mg/dl Glucose 103 H (70-99(Fasting)) mg/dl Calcium 9.3 (8.6-10.3) mg/dl AST 35 (13-39) U/L ALT 23 (7-52) U/L Alkaline Phosphatase 73 (34-104) U/L Total Protein 6.6 (6.0-8.3) gm/dl Albumin 4.2 (3.4-5.0) gm/dl Intake and Output 11/26/24 11/27/24 11/27/24 22:59 06:59 14:59 Output Total 175 / 175 Balance -175 / 287 Output: Urine 175 / 175 PG Care Time/CCT Total # of Minutes Spent Total Time Spent with Patient: Total time spent is greater than 50% in coordination of care (as documented) at patient's floor/unit and/or counseling patient: Coding Level of Care Code 62366 SUB INP/OBS CARE 3/50MIN Diagnoses Non-ST elevation IA (NSTEMI) I21.4 Coronary artery disease involving telida coronary artery of telida heart without angina pectoris I25.10 Coronary Disease-Associated Artery/Lesion type: telida artery Ute vs. transplanted heart: telida heart Associated angina: without angina S/P coronary artery stent placement Z95.5 Hypertension, unspecified type I10 Hypertension type: unspecified Gross hematuria R31.0 (2) CAD (coronary artery disease) Coronary Disease-Associated Artery/Lesion type: telida artery Ute vs. transplanted heart: telida heart Associated angina: without angina Qualified Code(s): I25.10 - Atherosclerotic heart disease of telida coronary artery without angina pectoris (4) Hypertension Hypertension type: unspecified Qualified Code(s): I10 - Essential (primary) hypertension
--- NOTE | 2024-11-27 11:11 | Hospitalist Progress Note ---
Date of Service November 27, 2024 Assessment & Plan (1) Non-ST elevation HI (NSTEMI): Plan: 79-year-old male with past medical history significant for prediabetes, hypertension, BPH, degenerative disc disease, lumbar radiculopathy, anxiety, history of tobacco use, history of TIA presents with bilateral shoulder and chest tightness and discomfort. Patient states around 9:30 AM and 10 AM he felt bilateral shoulder and upper chest tiredness and discomfort. He sat in a chair and it subsided. They went to town and had some grocery shopping and came back home. He was sitting on a chair to read paper around 2 PM when again noticed similar bilateral shoulder and upper chest tiredness and discomfort. He went and sat in different chair and at the time was feeling hungry he tried to eat and was drinking soup but the discomfort escalated , did not feel like eating and came to the ER. By the time he came to the ER the discomfort and tiredness subsided. Currently resting comfortably. Denies any shortness of breath. Denies any sweating. No headache. No nausea. No dizziness. No runny nose or sore throat. No cough. No fevers. No abdominal pain. Normal bowel and bladder movements. Denies any blood in the stools. No rash. Hemodynamics are okay. States when ambulating did not had chest pain or shortness of breath. Non-ST elevated HI:: status post cardiac catheterization x 2 on the same day Patient had couple of episodes of bilateral shoulder and upper chest tightness and discomfort EKG no acute findings Initial troponin 109 and repeat is 589 troponin went up to 06/01/2008 Started on IV heparin and Aspirin Status post cardiac cath and successful PCI of mid circumflex with single drug- eluting stent Loaded with Plavix 600 mg in the Generalist Continue dual antiplatelet therapy for at least 1 year. Continue statin and ASCVD risk factor modification Required second cardiac catheterization on the same day due to chest discomfort after meal and showed nonobstructive IntraStent thrombus and no further procedure required Has had hematuria and Integrilin infusion has been stopped and continues with aspirin and Plavix Remains stable this morning with minimal agitation but otherwise hemodynamically stable Remains stable without any cardiac symptoms Cleared by the job setter that he can be discharged Hematuria Likely secondary to anticoagulation with aspirin and Integrilin Integrilin has been changed to Plavix Appreciate urology input recommendation hematuria seems to be improving Hematuria resolved Hypertension On amlodipine and losartan Will monitor Remains stable at 143/80 Anxiety On buspirone BPH On finasteride Degenerative disc disease We will hold diclofenac Prediabetes We will follow HbA1c levels DVT prophylaxis On IV heparin Disposition Telemetry Full code Stable discharge home this afternoon Admission and Anticipated Discharge Date Admission Date: November 24, 2024 Subjective 11/25/2024 The patient was seen and examined in telemetry unit in presence of the He was very agitated during interaction with the patient during this morning Discussed with the about the heart attack and need for cardiac catheterization No examination was done 11/26/2024 The patient was seen and examined in telemetry unit in presence of the He remains agitated but has calmed down compared with yesterday Has had hematuria seems to be clearing up Denies any chest pain and/or palpitation 11/27/2024 Patient was seen and examined in telemetry unit in presence of the He denies any symptoms Hematuria resolved He will be discharged home this afternoon Review of Systems Review of Systems: All systems reviewed and are unremarkable except as noted below Physical Exam Physical Exam: Lying in bed without any acute distress Constitutional: well developed, well nourished and + ill appearing Eyes: PERRL, conjunctivae normal, anicteric sclerae ENMT: external ear and nose normal, oropharynx normal Neck: trachea midline, no thyromegaly Respiratory: no respiratory distress Auscultation: lungs clear to auscultation bilaterally Cardiovascular: Rate/Rhythm: regular rate and regular rhythm; not tachycardic Heart Sounds: normal S1 and normal S2; no murmur Extremities: no edema Gastrointestinal (Abdomen): Inspection/Auscultation: abdomen not distended Percussion/Palpation: abdomen soft; abdomen nontender Neurologic: normal touch/pain/proprioception and moves all extremities; no focal motor deficits Psychiatric: Mood: + anxious mood and + irritable mood Lymphatic: no cervical or axillary lymphadenopathy Results & Data Results & Data Vital Signs (Past 12 Hours) Vital Signs Temp Pulse Pulse Resp BP Pulse Ox O2 Del Method 11/27/24 09:28 Room Air 11/27/24 07:05 36.9 C 74 21 143/80 H 96 Room Air 11/27/24 06:00 67 11/27/24 00:27 37.0 C 76 17 143/72 H 95 Room Air Laboratory Results Short CBC 11/27/24 Range/Units 04:50 WBC 7.99 (4.8-10.8) K/ul Hgb 12.7 L (14.0-18.0) g/dl Hct 39.1 L (42.0-52.0) % Plt Count 190 (130-400) K/uL BMP 11/27/24 04:50 Sodium 138 Potassium 3.9 Chloride 104 Carbon Dioxide 24 BUN 20 Creatinine 1.01 Glucose 103 H Calcium 9.3 Liver Function 11/27/24 Range/Units 04:50 Total Bilirubin 0.5 (0.2-1.0) mg/dl AST 35 (13-39) U/L ALT 23 (7-52) U/L Alkaline Phosphatase 73 (34-104) U/L Albumin 4.2 (3.4-5.0) gm/dl Medications Administered Current Inpatient Medications Acetaminophen (Acetaminophen 325 Mg Tab) 650 mg PO Q4H PRN PRN Reason: Pain or Fever Stop: 12/24/24 21:26 Last Admin: 11/27/24 07:34 Dose: 650 mg Amlodipine Besylate (Amlodipine Besylate 5 Mg Tab) 10 mg PO DAILY JAYLEN Stop: 12/25/24 08:59 Last Admin: 11/27/24 07:36 Dose: 10 mg Aspirin (Aspirin 81 Mg Ectab) 81 mg PO QAM JAYLEN Stop: 12/25/24 08:59 Last Admin: 11/27/24 07:36 Dose: 81 mg Atorvastatin Calcium (Atorvastatin 40 Mg Tab) 40 mg PO QPM JAYLEN Stop: 12/26/24 20:59 Last Admin: 11/26/24 20:32 Dose: 40 mg Buspirone HCl (Buspirone 5 Mg Tab) 10 mg PO BID JAYLEN Stop: 12/25/24 08:59 Last Admin: 11/27/24 07:35 Dose: 10 mg Clopidogrel Bisulfate (Clopidogrel Bisulfate 75 Mg Tab) 75 mg PO QAM JAYLEN Stop: 12/26/24 07:04 Last Admin: 11/27/24 07:37 Dose: 75 mg Finasteride (Finasteride 5 Mg Tab) 5 mg PO DAILY JAYLEN Stop: 12/25/24 08:59 Last Admin: 11/27/24 07:35 Dose: 5 mg Losartan Potassium (Losartan Potassium 25 Mg Tab) 25 mg PO BID JAYLEN Stop: 12/25/24 08:59 Last Admin: 11/27/24 07:36 Dose: 25 mg Metoprolol Succinate (Metoprolol Succ 25mg Ext Rel Tab) 12.5 mg PO QAM JAYLEN Stop: 12/25/24 08:59 Last Admin: 11/27/24 07:36 Dose: 12.5 mg Nitroglycerin (Nitroglycerin Sl 0.4 Mg/Tab Tab) 0.4 mg SL Q5M PRN PRN Reason: Chest Pain Stop: 12/24/24 21:26 Last Admin: 11/25/24 16:49 Dose: 0.4 mg Polyethylene Glycol (Polyethylene (Miralax) 17 Gm Pack) 17 gm PO DAILY PRN PRN Reason: Constipation Stop: 12/24/24 21:26 Last Admin: 11/26/24 04:57 Dose: 17 gm
[2024-11-27 11:15] VITALS: PULSE 61; RESP 20; TEMP 98.1
[2024-11-27 12:01] VITALS: BP 143/80
--- NOTE | 2024-11-27 14:45 | Discharge Summary ---
Date of Service November 27, 2024 Admission HPI Per Admitting Provider 79-year-old male with past medical history significant for prediabetes, hypertension, BPH, degenerative disc disease, lumbar radiculopathy, anxiety, history of tobacco use, history of TIA presents with bilateral shoulder and chest tightness and discomfort. Patient states around 9:30 AM and 10 AM he felt bilateral shoulder and upper chest tiredness and discomfort. He sat in a chair and it subsided. They went to town and had some grocery shopping and came back home. He was sitting on a chair to read paper around 2 PM when again noticed similar bilateral shoulder and upper chest tiredness and discomfort. He went and sat in different chair and at the time was feeling hungry he tried to eat and was drinking soup but the discomfort escalated , did not feel like eating and came to the ER. By the time he came to the ER the discomfort and tiredness subsided. Currently resting comfortably. Denies any shortness of breath. Denies any sweating. No headache. No nausea. No dizziness. No runny nose or sore throat. No cough. No fevers. No abdominal pain. Normal bowel and bladder movements. Denies any blood in the stools. No rash. Hemodynamics are okay. States when ambulating did not had chest pain or shortness of breath. Past medical history. As mentioned above. Past surgical history. Repair of knee cartilage. Left total hip replacement. Removal of tonsils. Social history. . Smoked 1 pack a day for 30 years. Quit smoking in 1997. Alcohol rarely. No drug use. Family history. Father had skin cancer. Prostate cancer. Stroke. Mother had lung cancer. Son had cardiomyopathy. Son had osteoarthritis. Sister had kidney cancer. Sister had osteoarthritis. Sister had skin cancer. Admission Exam Per Admitting Provider Physical Exam: General- Not in distress Head- atraumatic Eyes- PERRL, ENT- oropharynx clear Neck- supple, no JVD. Lungs- clear to auscultation no wheezing or crackles Heart- regular rhythm; no murmur, no gallop. Abdomen- normal bowel sounds, soft, nontender, no distension. Extremities- no pretibial edema, no erythema seen Neuro- alert, oriented PERRL, no facial palsy; no dysarthria; moves extremities Principal Diagnosis NSTEMI, status post cardiac cath with successful PCI of mid circumflex with KIERAN, hypertension, anxiety Discharge Exam Lying in bed without any acute distress Constitutional well developed, well nourished and + ill appearing Eyes PERRL, conjunctivae normal, anicteric sclerae ENMT external ear and nose normal, oropharynx normal Neck trachea midline, no thyromegaly Respiratory no respiratory distress Auscultation: lungs clear to auscultation bilaterally Cardiovascular Rate/Rhythm: regular rate and regular rhythm; not tachycardic Heart Sounds: normal S1 and normal S2; no murmur Extremities: no edema Gastrointestinal (Abdomen) Inspection/Auscultation: abdomen not distended Percussion/Palpation: abdomen soft; abdomen nontender Neurologic normal touch/pain/proprioception and moves all extremities; no focal motor deficits Psychiatric Mood: + anxious mood and + irritable mood Lymphatic no cervical or axillary lymphadenopathy Discharge Data Allergies Allergy/AdvReac Type Severity Reaction Status Date / Time No Known Allergies Allergy Verified 11/25/24 11:53 Consultations 11/24/24 19:09 ED Decision to Admit Stat 11/25/24 08:00 Consult Cardiology Routine 11/26/24 08:00 Consult Urology Routine Procedures Performed Operation Date: 11/25/24 17:45 Actual Procedures p Cineradiography w/Routine Exam - Adonay Brown MD s IVUS Coronary Single Vessel - Adonay Brown MD Ordered Studies 11/24/24 18:26 CTA chest dissec wo/w con [CT angio chest dissec wo/w con] Stat 11/25/24 12:28 CL Cath Imgs for PACS use only Routine 11/25/24 15:00 EP Lab Images for PACS ONCE 11/25/24 17:40 CL Cath Imgs for PACS use only Stat 11/25/24 19:12 CL IVUS Coronary Single Vessel Routine Hospital Course (1) Non-ST elevation IA (NSTEMI): 79-year-old male with past medical history significant for prediabetes, hypertension, BPH, degenerative disc disease, lumbar radiculopathy, anxiety, history of tobacco use, history of TIA presents with bilateral shoulder and chest tightness and discomfort. Patient states around 9:30 AM and 10 AM he felt bilateral shoulder and upper chest tiredness and discomfort. He sat in a chair and it subsided. They went to town and had some grocery shopping and came back home. He was sitting on a chair to read paper around 2 PM when again noticed similar bilateral shoulder and upper chest tiredness and discomfort. He went and sat in different chair and at the time was feeling hungry he tried to eat and was drinking soup but the discomfort escalated , did not feel like eating and came to the ER. By the time he came to the ER the discomfort and tiredness subsided. Currently resting comfortably. Denies any shortness of breath. Denies any sweating. No headache. No nausea. No dizziness. No runny nose or sore throat. No cough. No fevers. No abdominal pain. Normal bowel and bladder movements. Denies any blood in the stools. No rash. Hemodynamics are okay. States when ambulating did not had chest pain or shortness of breath. Non-ST elevated IA:: status post cardiac catheterization x 2 on the same day Patient had couple of episodes of bilateral shoulder and upper chest tightness and discomfort EKG no acute findings Initial troponin 109 and repeat is 589 troponin went up to 06/01/2008 Started on IV heparin and Aspirin Status post cardiac cath and successful PCI of mid circumflex with single drug- eluting stent Loaded with Plavix 600 mg in the Residential Coordinator Continue dual antiplatelet therapy for at least 1 year. Continue statin and ASCVD risk factor modification Required second cardiac catheterization on the same day due to chest discomfort after meal and showed nonobstructive IntraStent thrombus and no further procedure required Has had hematuria and Integrilin infusion has been stopped and continues with aspirin and Plavix Remains stable this morning with minimal agitation but otherwise hemodynamically stable Remains stable without any cardiac symptoms Cleared by the parts counter salesperson that he can be discharged Hematuria Likely secondary to anticoagulation with aspirin and Integrilin Integrilin has been changed to Plavix Appreciate urology input recommendation hematuria seems to be improving Hematuria resolved Hypertension On amlodipine and losartan Will monitor Remains stable at 143/80 Anxiety On buspirone BPH On finasteride Degenerative disc disease We will hold diclofenac Prediabetes We will follow HbA1c levels DVT prophylaxis On IV heparin Disposition Telemetry Full code Stable discharge home this afternoon Total Time Total Time Spent Total Time Spent (In Minutes): 45 minutes Discharge Plan Discharge Items Patient Disposition: Home - Self-Care Reason For Visit: NSTEMI Discharge Diagnosis: NSTEMI, status post cardiac cath with successful PCI of mid circumflex with KIERAN, hypertension, anxiety Condition on Discharge: Good Activity: Resume your previous activity Non-emergency contact: Primary Care Provider Call non-emergency contact if: you have any medication questions and your symptoms worsen Follow-up/Referrals: Marina Montes De Oca CRNP [Primary Care Provider] - ( please make an appointment with your PCP within 7 days) Diet: Heart Healthy Sue Attending Provider Instructions: ACTIVITY RECOMMENDATIONS: It is common to feel weak and fatigue for a few days. * Do not drive or operate any motorized equipment for the next three days. * Limit stair usage (2 or 3 trips a day only) for the next three days. * Do not lift anything heavier than 10 pounds for the next three days. * Do not engage in vigorous exercise or any sports for the next five days. * You may shower the day after your procedure, but do not immerse the area for three days. Cleanse the site gently with soap and water. SPECIAL CARE INSTRUCTIONS: * You may replace the pressure dressing or band-aid the morning after the procedure. * After your procedure, it is normal to have a small bruise or small lump at the site. Examine your site daily for any change in the bruise or lump, redness, swelling, drainage or numbness. Notify your doctor if any change. BLEEDING: * If there is a small amount of bleeding at the site, lie down and apply firm pressure with a clean cloth for ten minutes. When the bleeding stops, lie quietly keeping the procedure limb straight for six hours. Notify your doctor as soon as possible. * If the bleeding does not stop after ten minutes or if there is a large amount of bleeding or spurting, call 911 immediately. Continue to lie down and hold firm pressure until help arrives. SKIN IRRITATION: * You may experience some redness and/or swelling in the area where radiation was administered. If any skin irritation occurs, please contact your family physician. FOLLOW UP VISIT: Keep any scheduled doctor appointments. Addtl Digital Project Manager Provider Instructions: Please take precautions to avoid falls Take your medications as advised Please keep appointments with your healthcare providers Pending Studies at Discharge: No Stand-Alone Forms: [employer], Smoking Cessation Medications and DC Order Prescriptions: New atorvastatin 40 mg Tablet 40 mg PO QPM Qty: 30 0RF clopidogrel 75 mg Tablet 75 mg PO QAM Qty: 30 0RF aspirin 81 mg Tablet,Delayed Release (Dr/Ec) 81 mg PO QAM Qty: 30 0RF metoprolol succinate 25 mg Tablet Extended Release 24 Hr 12.5 mg PO QAM Qty: 30 0RF Continued tramadol 50 mg tablet 50 mg PO Q6H PRN (Reason: Severe Pain (Scale Score 7-10)) amlodipine 10 mg tablet 10 mg PO DAILY buspirone 10 mg tablet 10 mg PO BID losartan 25 mg tablet 25 mg PO BID finasteride 5 mg tablet 5 mg PO DAILY Discontinued diclofenac sodium 75 mg tablet,delayed release (DR/EC) 75 mg PO BID Discharge Orders: Discharge Order (Routine); Ordered 11/27/24 Ordered By: Eh Dupree/Other Patient Handouts: Prediabetes, Heart Attack Angina Sx, Cardiac Rehab Exercise, Cardiac Rehab Getting Started, Heart Attack: Back at Home Admission Data Admit Date/Time: 11/24/24 20:08 Attending Provider: Eh Coughlin Admit Provider: Manny Braden Primary Care Provider: Marina Montes De Oca Other Providers: Manny Braden; Brenda Long; Nick Barton; Darrius Toussaint; Castro Stewart; Pascual Pérez; Feroz Galeano; Aleshia Baeza; Orquidea Richter; Jolene Khan; Indu Montalvo; Brenda Millard; Polo Rosales; Milan Mcmahon; Sierra Alcala; Maria C Graff; Gudelia Benedict; Michelle Gu; Werner Esparza; Janeth Reveles; Zo Valdez; Adonay Lord; Adonay Fritz; Jannie Jefferson; Dexter Bolton; Coleen Lozano; Hong Galarza; Susan Avila; Casa Baxter; Onesimo Whitehead; Jose Cruz Mendoza; Jaylon Kee Other Interventions: Discharge Summary Assessment (RN) Last Done: 11/27/24 11:59
== END 2024-11-27 13:59 | disposition home or self-care (01) | DRG 322 ==
LOC: ED 17:28 → 4W 20:08